=== PATIENT | male | born 1960 | race African-American/Black ===

== ENCOUNTER → 2018-02-03 20:07 | Outpatient (CLI) | payer OTHER, SELFPAY | PROVIDERS: Visit Provider Nurse Practitioner Family | DX: G47.33 Obstructive sleep apnea (adult) (pediatric) (principal); R06.83 Snoring | CPT/HCPCS: 95811 ==

== ENCOUNTER 2021-03-27 09:15 | Emergency (ER) | payer OTHER, SELFPAY ==
[2021-03-27 10:05] VITALS: BP 180/100; PULSE 76; RESP 18; TEMP 36.7; O2SAT 98; BMI 40.4
--- NOTE | 2021-03-27 10:49 | HMH.EDUTC ---
[facility] [place] [facility] Disposition Clinical Impression: Exposure to COVID-19 virus Disposition: Home, Self-Care Condition on Discharge: Good Instructions: DI for COVID-19 (Suspected or Confirmed ), Preventing the Spread of Coronavirus Discharge Instructions Additional Instructions: *Monitor Temp, Over the counter Motrin or Tylenol as directed/as needed Tylenol every 4 hours and Motrin every 6 hours (as long as your family doctor has told you that you can take it) for fever or pain. and straight to ER if unable to lower temp less than 101.0 after medication given Follow up IMMEDIATELY for new or worsening symptoms or no Noticeable improvement over the next 48-72 hours. 911 for difficulty breathing or swallowing You were tested for today for COVID19 your test result should be back in the next 24-48 hours, you may call to the [facility] to see if your test results are back in the next 48 hours [phone] [facility] hours are 9am-9pm You was given a handout with instructions for Self Quarantine and Self isolation for while you wait on test results and what to do if they are positive If you are positive the Health Dept will be contacting you also Make sure to take your Vitamins Vit. C Vit D and Zinc if you can take them Referrals: Provider,Referral, MD [Primary Care Provider] - As needed Time of Disposition: 10:53 Medical Decision Making - Ang Inquiry Pt receiving controlled substance: No Ang was queried for this patient: No Vital Signs: 03/27/21 10:05 Temperature 98.0 F Temperature Source Oral Pulse Rate [Right Brachial] 76 Respiratory Rate 18 Blood Pressure [Right Arm] 180/100 H Blood Pressure Mean [Right Arm] 126 Blood Pressure Source [Right Arm] Automatic Cuff Blood Pressure Position [Right Arm] Sitting 02 Sat by Pulse Oximetry 98 Oxygen Delivery Method Room Air Orders (Tests/Meds): ORDERS Category Date Time Status Covid-19 Nasal PCR ([facility]) Routine Lab 03/27/21 10:51 Ordered [facility] [place] [facility] HPI - General Stated complaint: covid test, exposure Time Seen by Provider: 03/27/21 10:49 Mode of Arrival: Ambulatory Source of Information: Patient Limitations: No Limitations Description of Symptoms (Recalled from Triage Doc. by RN): COVID TEST D/T EXPOSURE. DENIES SYMPTOMS HEENT Symptoms (Recalled from RN notes): No Resp Symptoms (Recalled from RN notes): No Skin Symptoms (Recalled from RN notes): No MS Symptoms (Recalled from RN notes): No Functional Status (Recalled from RN notes): WNL - History of Present Illness Provider Complaint: Patient state that the whole house has been dx with COVID state that he is not having any symptoms but wanted to get tested due to exposure - Related Data Home Medications Medication Instructions Recorded Confirmed amlodipine 5 mg tablet PO 90 Days #90 01/27/18 aspirin 81 mg tablet,delayed 81 mg PO ONCE 01/27/18 release atorvastatin 80 mg tablet PO 90 Days #90 01/27/18 metformin 500 mg tablet PO 20 Days #20 01/27/18 metoprolol tartrate 100 mg tablet PO 90 Days #90 01/27/18 omeprazole 20 mg capsule,delayed PO 90 Days #90 01/27/18 release potassium chloride 10 mEq PO 90 Days #90 01/27/18 tablet,extended release sertraline 100 mg tablet PO 90 Days #45 01/27/18 tramadol 50 mg tablet PO 30 Days #180 01/27/18 Allergies Allergy/AdvReac Type Severity Reaction Status Date / Time No Known Allergies Allergy Verified 03/27/21 10:44 - Worker's Comp Is this a Worker's Comp case?: No [facility] History - Hepatitis A Screen Drug use history?: No High risk sexual behaviors?: No History of sexually transmitted infection?: No Currently employed?: No Childcare worker?: No Do you have indoor plumbing?: Yes Do you have electricity?: Yes Attestation statement:: This patient has been screened for Hepatitis A risk factors. I have reviewed the patient's past medical history: Yes Medical History: Reports:: Depression, Diabetes Mellitus Type 2, Gastroesophageal Reflux Disease(GERD),
[2021-03-27 10:56] VITALS: BP 180/100; PULSE 76; RESP 18; TEMP 36.7; O2SAT 98
--- NOTE | 2021-03-28 10:25 | PC.NURSE ---
informed patient that he was positive
== END 2021-03-27 10:59 | disposition home or self-care (01) ==
PROVIDERS: Emergency Provider Nurse Practitioner
DX: U07.1 COVID-19 (principal)
CPT/HCPCS: 99202; G0463; U0003

== ENCOUNTER 2023-12-25 12:39 | Inpatient (IN) | payer MEDICARE, OTHER, SELFPAY ==
[2023-12-25] VITALS (9 sets, daily range): BP systolic 117–148; BP diastolic 61–88; PULSE 70–83; RESP 15–24; TEMP 36.4–37.3; O2SAT 93–100; BMI 31.2
--- NOTE | 2023-12-25 12:39 | ECG_ITS ---
APPROVED REPORT Exam: Resting ECG HR:69 bpm ECG Measurements Heart Rate 69 AXES MA 198 P 44 QRSd 98 QRS -42 QT 430 T -2 QTc 449 Conclusion SINUS RHYTHM WITH SINUS ARRHTHYMIA LEFT AXIS DEVIATION [QRS AXIS < -30] SEPTAL MYOCARDIAL INFARCTION , PROBABLY OLD [40+ ms Q WAVE IN V1/V2] ABNORMAL ECG UNCONFIRMED REPORT Electronically signed by : NAYLA ELLIOTT, 12/25/2023 15:44:04
--- NOTE | 2023-12-25 12:48 | XR_ITS ---
PROCEDURE INFORMATION: Exam: XR Chest Exam date and time: 12/25/2023 12:51 PM Age: 63 years old Clinical indication: Pain; Chest pressure; Additional info: Chest pain TECHNIQUE: Imaging protocol: Radiologic exam of the chest. Views: 1 view. COMPARISON: No relevant prior studies available. FINDINGS: Lungs: No evidence of acute airspace infiltrate. No pulmonary edema. Pleural spaces: No significant pleural effusion. No pneumothorax. Heart/Mediastinum: Cardiomediastinal silouhette is within normal limits. Bones/joints: No evidence of acute osseous abnormality. IMPRESSION: No acute findings.
--- NOTE | 2023-12-25 12:48 | PC.NURSE ---
in Room talking with patient at this time.
--- NOTE | 2023-12-25 12:53 | CT_ITS ---
PROCEDURE INFORMATION: Exam: CT Abdomen And Pelvis With Contrast Exam date and time: 12/25/2023 2:22 PM Age: 63 years old Clinical indication: Abdominal pain; Additional info: Abd pain TECHNIQUE: Imaging protocol: Computed tomography of the abdomen and pelvis with contrast. Radiation optimization: All CT scans at this facility use at least one of these dose optimization techniques: automated exposure control; mA and/or kV adjustment per patient size (includes targeted exams where dose is matched to clinical indication); or iterative reconstruction. Contrast material: ISOVUE; Contrast volume: 75 ml; Contrast route: IV; COMPARISON: CR XR CHEST PORTABLE 12/25/2023 12:51 PM FINDINGS: Liver: Fatty liver. Concentrated focal fatty deposition incidentally noted along the gallbladder fossa. No suspicious liver lesions. Gallbladder and bile ducts: Status post cholecystectomy. Pancreas: Peripancreatic fat stranding consistent with acute pancreatitis centered in pancreatic neck and body and surrounding a focal 2.5 cm lobulated area of parenchymal hypoenhancement. No peripancreatic fluid collection. Spleen: Unremarkable. Adrenal glands: Unremarkable. Kidneys and ureters: Bilateral simple renal cysts, some of which are too small to characterize but also most likely benign. No renal or ureteral stones. No hydronephrosis. Stomach and bowel: Unremarkable. Appendix: No evidence of appendicitis. Intraperitoneal space: No free fluid. No pneumoperitoneum. Vasculature: Moderate amount of calcific arterial atherosclerosis throughout the aorta. No abdominal aortic aneurysm. Lymph nodes: Unremarkable. Urinary bladder: Unremarkable. Reproductive: Prostate is enlarged, measuring approximately 5.0 cm in transverse axis. Bones/joints: Multi-level bridging or beaked disc osteophytes in the lower thoracic spine compatible with diffuse idiopathic skeletal hyperostosis (DISH). No evidence of acute osseous abnormality. Soft tissues: Small fat containing umbilical hernia without evidence of acute inflammation. Trace subcutaneous emphysema in the superficial soft tissues overlying the right inguinal canal, of unclear clinical significance. No evidence of focal fluid collection or interstitial gas. IMPRESSION: 1. Acute pancreatitis with focal area of parenchymal hypoenhancement concerning for necrotizing pancreatitis. 2. Fatty liver. 3. Enlarged prostate. 4. Diffuse idiopathic skeletal hyperostosis (DISH). 5. Additional ancillary findings are detailed above. COMMENTS: Consistent with the [employer]'s Incidental Findings Committee white paper (J [employer] Gerhard [employer]iol 2018): Any incidental renal lesion less than 1 cm or classified as too small to characterize, or any incidental cystic renal lesion characterized as simple-appearing, is likely benign. No follow-up imaging is recommended for these lesions per consensus recommendations based on imaging criteria.
[2023-12-25 12:58] LABS: Basophils # 0.1 K/mm3 (0-0.2); Basophils % 0.7 % (0.1-2.0); Eosinophils # 0.2 K/mm3 (0.0-0.4); Eosinophils % 1.1 % (0.1-12.0); Hematocrit 46.8 % (42.0-52.0); Hemoglobin 14.9 g/dL (14.1-18.0); Lymphocytes # 1.9 K/mm3 (0.7-4.5); Lymphocytes % 12.7 % (10-50); Mean Corpuscular HGB Conc 31.8 g/dL (31.8-35.4); Mean Corpuscular Hemoglobin 27.6 pg (27.0-31.2); Mean Platelet Volume 7.1 fl (7.4-10.4); Monocytes # 0.5 K/mm3 (0.1-1.0); Monocytes % 3.2 % (1.7-9.3); Neutrophils % 82.3 % (37.0-80.0); Platelet Count 556 K/mm3 (142-424); Red Blood Count 5.38 M/mm3 (4.60-6.20); Red Cell Distribution Width 14.2 % (11.5-17.5); White Blood Count 14.6 K/mm3 (4.8-10.8)
[2023-12-25] MEDS: MORPHINE 4MG/ML SYRINGE 4 MG IV (13:03)
[2023-12-25] MEDS: ONDANSETRON 4MG/2ML VIAL 4 MG IV (13:03)
[2023-12-25 13:15] LABS: Alanine Aminotransferase 63 U/L (12-78); Albumin/Globulin Ratio 1.3 (1.1-1.8); Alkaline Phosphatase 96 U/L (38-126); Anion Gap 13.8 mEq/L (5-15); Aspartate Amino Transferase 74 U/L (17-59); Bilirubin,Total 0.7 mg/dl (0.2-1.3); Blood Urea Nitrogen 13 mg/dl (9-20); Calcium 9.7 mg/dl (8.4-10.2); Carbon Dioxide 29 mmol/L (22.0-30.0); Chloride 91 mmol/L (98-107); Creatinine Clearance Estimated 107 mL/min (50-200); Estimated Glomerular Filt Rate 85 ml/min (>60); GFR (African American) 103 ML/MIN (>60); Globulin 3.1 g/dL (1.3-3.2); Glucose 193 mg/dl (74-100); Lipase 517 U/L (23-300); Potassium 3.8 mmoL/L (3.5-5.1); Sodium 130 mmol/L (136-145); Total Protein,Serum 7.1 g/dl (6.3-8.2)
[2023-12-25 13:33] LABS: Lactic Acid 1.8 mmol/L (0.7-2.1)
[2023-12-25 13:52] LABS: Troponin I < 0.01 ng/ml (0.00-0.034)
--- NOTE | 2023-12-25 13:58 | HMH.EDGENADL ---
Discharge Plan Disposition Patient Disposition: Admitted Condition: Fair Chief Complaint: Chest Pain Prescriptions Prescriptions: No Action tramadol 50 mg tablet PO 30 Days Qty: 180 amlodipine 5 mg tablet PO 90 Days Qty: 90 atorvastatin 80 mg tablet PO 90 Days Qty: 90 metformin 500 mg tablet PO 20 Days Qty: 20 sertraline 100 mg tablet PO 90 Days Qty: 45 omeprazole 20 mg capsule,delayed release(DR/EC) PO 90 Days Qty: 90 metoprolol tartrate 100 mg tablet PO 90 Days Qty: 90 potassium chloride 10 mEq tablet extended release PO 90 Days Qty: 90 aspirin [Adult Low Dose Aspirin] 81 mg tablet,delayed release (DR/EC) 81 mg PO ONCE Referrals Follow up/Referrals: Provider,Referral, MD [Primary Care Provider] - See instructions Clinical Impressions Clinical Impression: Acute pancreatitis, Hyponatremia Discharge ED Provider: Amador Soni Adult HPI General Chief complaint: Chest Pain Stated complaint: chest pain Time Seen by Provider: 12/25/23 12:46 Mode of Arrival: Wheelchair Source of Information: Patient, Spouse and Medical Record Limitations: No Limitations Description of Symptoms (Recalled from ER Triage Doc. by RN): c/o center chest pain that started this am, vomiting, diarrhea and stomach pain for approx 3 weeks. reports that he started ozempic 3 weeks ago and he has had stomach issues since, [facility] for [facility] and then restarted it a few weeks ago which he didnt take the shot this am. History of Present Illness HPI narrative: 63-year-old male with past medical history significant for hypertension, HLD, DM 2, depression, GERD, sciatica, presents today for evaluation concerning L chest pain onset this morning. Pain is not radiating. Chest pain is pressure-like. He also reports abdominal pain as well as nausea. He does state that he started Ozempic 4 months ago and has GI upset at times however this pain today is different. Denies having any fevers or chills. Has not had any shortness of breath, dysuria or hematuria. No other complaints. Related Data Home Medications Medication Instructions Recorded Confirmed amlodipine 5 mg tablet PO 90 days ##90 01/27/18 aspirin 81 mg tablet,delayed 81 mg PO ONCE 01/27/18 release (Adult Low Dose Aspirin) atorvastatin 80 mg tablet PO 90 days ##90 18 metformin 500 mg tablet PO 20 days ##20 01/27/18 metoprolol tartrate 100 mg tablet PO 90 days ##90 01/27/18 omeprazole 20 mg capsule,delayed PO 90 days ##90 01/27/18 release potassium chloride 10 mEq PO 90 days ##90 01/27/18 tablet,extended release sertraline 100 mg tablet PO 90 days ##45 01/27/18 tramadol 50 mg tablet PO 30 days ##180 01/27/18 Allergies Allergy/AdvReac Type Severity Reaction Status Date / Time No Known Allergies Allergy Verified 03/27/21 10:44 [facility] Disclaimer: The information contained in this section may have been updated after the patient was seen, as this information can be updated by other users. Social History Smoking Status: Current every day smoker tobacco type: cigarettes packs per day: 1 alcohol intake: never counseling provided: none substance use type: denies use current occupational status: other Travel in the last 8 weeks: None ROS Obtained: Yes All systems reviewed & no additional complaints except as documented Physical Exam General General appearance: alert and in no apparent distress Head Head exam: atraumatic and normocephalic Eye Eye exam: Present normal appearance, PERRL and EOMI ENT ENT exam: Present normal oropharynx and mucous membranes moist Neck Neck exam: Present full ROM; Absent meningismus Chest Chest inspection: Present tenderness (Reproducible tenderness palpation) Respiratory Respiratory exam: Absent respiratory distress, wheezes, stridor or accessory muscle use Cardiovascular Cardiovascular exam: Present normal rhythm Abdominal Exam Abdominal exam: Present soft and tenderness (Tenderness to palpation in the upper abdomen without rebound or guarding); Absent distention, guarding, rebound or rigidity Neurological Exam Neurological exam: Present alert, oriented X3 and CN II-XII intact; Absent motor sensory deficit Psychiatric Psychiatric exam: Present normal affect and normal mood Skin Skin exam: Present warm and dry Medical Decision Making Medical Records Medical records reviewed: Yes I reviewed the patient's medical records. Ang Inquiry Pt receiving controlled substance: No Ang was queried for this patient: No Vital Signs: 12/25/23 12:40 12/25/23 12:43 12/25/23 13:00 Temperature 97.6 F Temperature Source Oral Pulse Rate 72 Pulse Rate [Left Radial] 70 Respiratory Rate 21 15 19 Blood Pressure 121/76 132/81 Blood Pressure [Right Arm] 121/76 Blood Pressure Mean [Right Arm] 91 Blood Pressure Source [Right Arm] Automatic Cuff Blood Pressure Position [Right Arm] Sitting 02 Sat by Pulse Oximetry 100 99 Oxygen Delivery Method Room Air 12/25/23 13:30 12/25/23 14:00 12/25/23 15:00 Temperature Temperature Source Pulse Rate 72 75 77 Pulse Rate [Left Radial] Respiratory Rate 22 22 24 Blood Pressure 119/76 121/78 140/80 Blood Pressure [Right Arm] Blood Pressure Mean [Right Arm] Blood Pressure Source [Right Arm] Blood Pressure Position [Right Arm] 02 Sat by Pulse Oximetry 96 97 96 Oxygen Delivery Method Room Air Room Air Lab Data Lab Results 12/25/23 12:45: WBC 14.6 H, RBC 5.38, Hgb 14.9, Hct 46.8, MCV 87.0, MCH 27.6, MCHC 31.8, RDW 14.2, Plt Count 556 H, MPV 7.1 L, Neut % (Auto) 82.3 H, Lymph % (Auto) 12.7, [place] % (Auto) 3.2, Eos % (Auto) 1.1, Baso % (Auto) 0.7, Neut # (Auto) 12.0 H, Lymph # (Auto) 1.9, [place] # (Auto) 0.5, Eos # (Auto) 0.2, Baso # (Auto) 0.1, Sodium 130 L, Potassium 3.8, Chloride 91 L, Carbon Dioxide 29, Anion Gap 13.8, BUN 13, Creatinine 0.90, Estimated Creat Clear 107, Estimated GFR 85, Est GFR ( Amer) 103, Glucose 193 H, Calcium 9.7, Total Bilirubin 0.7, AST 74 H, ALT 63, Alkaline Phosphatase 96, Troponin I < 0.01, Total Protein 7.1, Albumin 4.0, Globulin 3.1, Albumin/Globulin Ratio 1.3, Lipase 517 H 12/25/23 13:20: Lactate 1.8 12/25/23 12:45 12/25/23 12:45 Orders (Tests/Meds): ED MEDICATIONS Generic Name Dose Route Start Last Admin Trade Name Freq PRN Reason Stop Dose Admin Sodium Chloride 10 ml 12/25/23 12:48 Sodium Chloride 0.9% 10ml Flush Syringe IV 01/24/24 12:47 NEEDED PRN Maintain IV Site Sodium Chloride 10 ml 12/25/23 14:33 12/25/23 14:34 Sodium Chloride 0.9% 10ml Syr (Rad Only) IV 01/24/24 14:32 10 ml NEEDED PRN Administration Maintain IV Site Discontinued Medications Generic Name Dose Route Start Last Admin Trade Name Gerald PRN Reason Stop Dose Admin Iopamidol 75 ml 12/25/23 14:33 12/25/23 14:34 Iopamidol-370 (76%);100ml Bottle IV 12/25/23 14:34 75 ml ONCE ONE Administration Morphine Sulfate 4 mg 12/25/23 12:53 12/25/23 13:03 Morphine 4mg/Ml Syringe IV 12/25/23 12:54 4 mg ONCE ONE Administration Ondansetron HCl 4 mg 12/25/23 12:53 12/25/23 13:03 Ondansetron 4mg/2ml Vial IV 12/25/23 12:54 4 mg ONCE ONE Administration ORDERS Category Date Time Status CT abdomen pelvis w con Stat Cat Scan 12/25/23 12:53 Completed XR chest portable Stat Exams 12/25/23 12:48 Completed Complete Blood Count Auto Diff Stat Lab 12/25/23 12:45 Completed Comprehensive Metabolic Panel Stat Lab 12/25/23 12:45 Completed Lactic Acid Stat Lab 12/25/23 13:20 Completed Lipase Stat Lab 12/25/23 12:45 Completed Troponin I Q3H Lab 12/25/23 16:00 Ordered Troponin I Q3H Lab 12/25/23 19:00 Ordered Troponin I Stat Lab 12/25/23 12:45 Completed Medical Decision Narrative: 63-year-old male with past medical history significant for hypertension, HLD, DM 2, depression, GERD, sciatica, presents today for evaluation concerning L chest pain onset this morning. Pain is not radiating. Chest pain is pressure-like. He also reports abdominal pain as well as nausea. He does state that he started Ozempic 4 months ago and has GI upset at times however this pain today is different. On assessment he was hemodynamically stable and in no acute distress. Afebrile. His chest was clear to auscultation bilaterally. He did have reproducible tenderness on the left side of the chest. His abdomen was soft and nondistended however was tender in the upper quadrants. No rebound or guarding. Other physical exam findings unremarkable. Differential diagnoses include but limited to STEMI, NSTEMI, gastritis, gastroenteritis, pancreatitis, cholecystitis, cholelithiasis, among others. EKG was ordered and personally interpreted by me and shows sinus rhythm with sinus arrhythmia with a rate of 69 bpm. No ischemic changes. Patient was given morphine and Zofran for symptom control. His WBC today was 14.6. Platelet count elevated at 556. Sodium 130. Chloride 91. AST elevated at 74. Lipase elevated at 517. Initial troponin less than 0.01. Second troponin is pending. Chest x-ray did not show any acute cardiopulmonary disease processes on my informal interpretation. Radiology report confirmed. CT abdomen pelvis with findings concerning for acute pancreatitis with concerns for necrotizing pancreatitis. Patient is hemodynamically stable and in no acute distress on reassessment. His pain is is controlled. I discussed ED workup and results and current plan to admit for acute pancreatitis with concerns for necrotizing pancreatitis. Will order for 1 L of normal saline. Patient verbalized understanding and agreed with plan. I did consult with hospital medicine and discussed management and they have agreed to admit to their service. Critical Care Critical Care Time Critical Care Time: No
[2023-12-25] MEDS: SODIUM CHLORIDE 0.9% 10ML SYR (RAD ONLY) 10 ML IV (14:34)
[2023-12-25] MEDS: IOPAMIDOL-370 (76%);100ML BOTTLE 75 ML IV (14:34)
--- NOTE | 2023-12-25 15:38 | P.HP_ITS ---
History of Present Illness *Admission Date: 12/25/23 *Reason for visit:: abdominal and chest pain *History of present illness: Mr. Abraham is a 63-year-old male with history of diabetes, hypertension, depression, hyperlipidemia, GERD. Presented to the ER for evaluation of left chest pain worsening this morning and worsening left upper abdominal pain. Patient reported he had some vomiting this morning and has had some loose stools over the past week that are forming/firming up. Denies any fever. Stable on room air. Afebrile. Workup in the ER with labs and imaging. CT of abdomen showed stranding around pancreas consistent with pancreatitis. Lipase elevated above 500. Troponins negative with EKG nonactionable. Patient also noted to have leukocytosis, likely reactive. Made NPO and pain medicine initiated. Given pancreatitis, severity of pain, necrotizing component, and inability to tolerate p.o. intake, medicine was consulted for admission and further management. On evaluation, patient reports that he had taken Ozempic several months ago and stopped due to abdominal discomfort. Resumed at approximately 3 weeks ago with last dose received 1 week ago. Severity of pain began last night but has had pain off and on for a while. Chest pain began last night. No shortness of breath, confusion, syncope. [facility] Disclaimer: The information contained in this section may have been updated after the patient was seen, as this information can be updated by other users. Medical History (Updated 12/25/23 @ 18:42 by Gonzalez Bates MD) Cholecystitis HLD (hyperlipidemia) HTN (hypertension) Back pain Diabetes Surgical History H/O hernia repair Previous back surgery Family History Other Arthritis Family history of cancer Family history of diabetes mellitus type II Heart disease Social History Smoking Status: Current every day smoker tobacco type: cigarettes packs per day: 1 alcohol intake: never counseling provided: none substance use type: denies use current occupational status: other Travel in the last 8 weeks: None housing: house Review of Systems Review of Systems Review of systems (narrative): 14 point review of systems performed, pertinent positives and negatives as per HPI Meds Home Medications and Allergies Home Medications Medication Instructions Recorded Confirmed Type amlodipine 5 mg tablet 5 mg PO DAILY 90 days ##90 01/27/18 12/25/23 History atorvastatin 80 mg tablet 80 mg PO DAILY 90 days ##90 01/27/18 12/25/23 History metoprolol tartrate 100 mg tablet 100 mg PO DAILY 90 days ##90 01/27/18 12/25/23 History omeprazole 20 mg capsule,delayed 20 mg PO BID 90 days ##90 01/27/18 12/25/23 History release sertraline 100 mg tablet 100 mg PO DAILY 90 days ##45 01/27/18 12/25/23 History tramadol 50 mg tablet 25 mg PO TID 30 days ##180 01/27/18 12/25/23 History New Prescriptions to Start Prescriptions: Allergies Allergy/AdvReac Type Severity Reaction Status Date / Time No Known Allergies Allergy Verified 03/27/21 10:44 Exam Data for Last 24 hours Vital signs and Labs for Last 24 Hours: Temp Pulse Resp BP Pulse Ox O2 Del Method 97.6 F 77 24 140/80 96 Room Air 12/25/23 12:40 12/25/23 15:00 12/25/23 15:00 12/25/23 15:00 12/25/23 15:00 12/25/23 15:00 Laboratory Results - last 24 hr 12/25/23 12:45: WBC 14.6 H, RBC 5.38, Hgb 14.9, Hct 46.8, MCV 87.0, MCH 27.6, MCHC 31.8, RDW 14.2, Plt Count 556 H, MPV 7.1 L, Neut % (Auto) 82.3 H, Lymph % (Auto) 12.7, [place] % (Auto) 3.2, Eos % (Auto) 1.1, Baso % (Auto) 0.7, Neut # (Auto) 12.0 H, Lymph # (Auto) 1.9, [place] # (Auto) 0.5, Eos # (Auto) 0.2, Baso # (Auto) 0.1, Sodium 130 L, Potassium 3.8, Chloride 91 L, Carbon Dioxide 29, Anion Gap 13.8, BUN 13, Creatinine 0.90, Estimated Creat Clear 107, Estimated GFR 85, Est GFR ( Amer) 103, Glucose 193 H, Calcium 9.7, Total Bilirubin 0.7, AST 74 H, ALT 63, Alkaline Phosphatase 96, Troponin I < 0.01, Total Protein 7.1, Albumin 4.0, Globulin 3.1, Albumin/Globulin Ratio 1.3, Lipase 517 H 12/25/23 13:20: Lactate 1.8 I & O for Last 24 hours: Intake & Output 12/22/23 12/23/23 12/24/23 12/25/23 23:59 23:59 23:59 23:59 Weight 101.605 kg Constitutional Constitutional: no acute distress and obese *Routine HEENT Exam Head: Present normocephalic Eye: Present EOMI and PERRL ENT: Present mucous membranes moist *Routine Neck Exam Neck: Present supple; Absent lymphadenopathy *Routine Respiratory Exam Respiratory: Present CTA bilaterally; Absent rhonchi, wheezes or crackles *Routine Cardiovascular Exam Cardiovascular: Present RRR *Routine Abdominal Exam Abdominal: Present soft, normoactive bowel sounds and tenderness (Diffuse, worse in the left upper quadrant. Guarding. No distention or rebound) *Routine Rectal Exam Rectal:: deferred *Routine Genitalia Exam Genitalia:: deferred *Routine Extremities Exam Extremities: Absent cyanosis, clubbing or edema *Routine Skin Exam Skin: Present warm; Absent rash *Routine Neurological Exam Neurological: Present alert, oriented X3 and moving all extremities; Absent altered mental status Assessment and Plan *Assessment and plan (1) Acute pancreatitis: Status: Acute Qualifiers: Acute pancreatitis complication: uninfected necrosis Category: Medical Code(s): K85.90 - Acute pancreatitis without necrosis or infection, unspecified (2) Hyponatremia: Status: Acute Category: Medical Code(s): E87.1 - Hypo-osmolality and hyponatremia (3) Diabetes: Status: Chronic Category: Medical Code(s): E11.9 - Type 2 diabetes mellitus without complications (4) HTN (hypertension): Status: Acute Category: Medical Code(s): I10 - Essential (primary) hypertension (5) HLD (hyperlipidemia): Status: Acute Category: Medical Code(s): E78.5 - Hyperlipidemia, unspecified (6) 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 Morales is a 63-year-old male with history of diabetes, hypertension, hyperlipidemia. Presented with abdominal pain and chest pain. Workup in the ER concerning for pancreatitis. Discussed case with ER physician, request admission for pain control, IV fluids, medical management of his pancreatitis. Medicine agreed to admit for further management. Stable on room air. Having intermittent pain. Personally reviewed CT of abdomen showing stranding around pancreas consistent with pancreatitis. Lipase elevated at 517. Necessitating inpatient management. Problems addressed as follows: Necrotizing pancreatitis -Lipase 517, LDH 373, triglycerides 100. Patient had recently resumed taking Ozempic. Does not have a gallbladder, has not had alcohol in over 30 years. Concern for medication induced pancreatitis secondary to Ozempic/GLP-1. -Bart score on admission of 2. Will repeat labs in 48 hours for mortality risk. Severe pancreatitis unlikely given LDH and age is his only 2 scoring factors. -Slow advancement of diet. Continue LR at 100 cc an hour. Will consider advancing diet tomorrow. Currently NPO. -Dilaudid 1 mg IV every 4 hours as needed for pain. Monitor for toxicity -Repeat CBC, CMP, magnesium ordered for the morning. White cell count of 14.6, likely reactive in the setting of pancreatitis. Type 2 diabetes: -Sliding scale insulin fingersticks ACHS. -Will need to discontinue Ozempic/GLP-1's moving forward. There are contraindicated at this time given his pancreatitis -Will resume oral diabetes meds once tolerating oral intake Hyponatremia: -Sodium 130, likely due to dehydration from poor p.o. intake. Repeat sodium level in the morning. Monitor for improvement with fluid resuscitation -Kidney function normal with BUN 13, creatinine 0.9 Hypertension and hyperlipidemia, holding home meds given normotensive state Full code Lovenox 40 mg subcu daily N.p.o.
[2023-12-25 15:53] LABS: Chol/HDL Ratio 3.3 (1-3.5); Cholesterol 109 mg/dl (140-200); HDL Cholesterol 33 mg/dl (40-60); Lactate Dehydrogenase 373 U/L (313-618); Triglycerides 103 mg/dl (30-150); VLDL Cholesterol 21 mg/dL (0-40)
--- NOTE | 2023-12-25 16:18 | PC.NURSE ---
Report called to Claire SAUNDERS
--- NOTE | 2023-12-25 16:18 | PC.NURSE ---
report received from ER at this time
[2023-12-25] MEDS: LACTATED RINGERS 1000ML 1,000 ML 75 ML IV (17:12)
[2023-12-25 17:17] LABS: Troponin I < 0.01 ng/ml (0.00-0.034)
[2023-12-25 17:24] LABS: POC Glucose,Bedside 140 (70-110)
[2023-12-25] MEDS: HYDROMORPHONE 2MG/ML SYRINGE 1 MG IV (19:03)
[2023-12-25 19:28] LABS: Troponin I < 0.01 ng/ml (0.00-0.034)
[2023-12-26] MEDS: HYDROMORPHONE 2MG/ML SYRINGE 1 MG IV ×5 (03:54→21:39)
[2023-12-26 04:00] VITALS: BP 122/67; PULSE 87; RESP 18; TEMP 36.9; O2SAT 96; BMI 30.8
[2023-12-26 04:04] LABS: POC Glucose,Bedside 139 (70-110)
--- NOTE | 2023-12-26 05:34 | PC.NURSE ---
Pt is alert and oriented. Complained of pain one time this shift, treated per mar. Pt ambulates to the restroom with standby assist. Abdomen is soft and tender. Bowel sounds active. has remained at bedside. Call light in reach.
[2023-12-26] MEDS: LACTATED RINGERS 1000ML 1,000 ML 75 ML IV (06:44)
[2023-12-26 07:44] LABS: Basophils # 0.1 K/mm3 (0-0.2); Basophils % 0.4 % (0.1-2.0); Eosinophils % 0.1 % (0.1-12.0); Hematocrit 45.9 % (42.0-52.0); Hemoglobin 14.6 g/dL (14.1-18.0); Lymphocytes # 2.3 K/mm3 (0.7-4.5); Lymphocytes % 14.5 % (10-50); Mean Corpuscular HGB Conc 31.7 g/dL (31.8-35.4); Mean Corpuscular Volume 88.3 fl (80-94); Mean Platelet Volume 7.6 fl (7.4-10.4); Monocytes # 0.8 K/mm3 (0.1-1.0); Neutrophils # 12.9 K/mm3 (1.8-7.8); Neutrophils % 80.1 % (37.0-80.0); Platelet Count 483 K/mm3 (142-424); Red Cell Distribution Width 14.2 % (11.5-17.5); White Blood Count 16.1 K/mm3 (4.8-10.8)
[2023-12-26 07:45] LABS: Chloride 94 mmol/L (98-107); Potassium 3.9 mmoL/L (3.5-5.1); Sodium 129 mmol/L (136-145)
[2023-12-26 07:47] LABS: MANUAL DIFFERENTIAL MANUAL DIFFERENTIAL (MANUAL DIFF)
[2023-12-26 07:48] LABS: Alanine Aminotransferase 51 U/L (12-78); Albumin Level 3.7 g/dl (3.5-5.0); Albumin/Globulin Ratio 1.3 (1.1-1.8); Alkaline Phosphatase 99 U/L (38-126); Anion Gap 12.9 mEq/L (5-15); Aspartate Amino Transferase 60 U/L (17-59); Bilirubin,Total 0.4 mg/dl (0.2-1.3); Blood Urea Nitrogen 11 mg/dl (9-20); Calcium 9.4 mg/dl (8.4-10.2); Carbon Dioxide 26 mmol/L (22.0-30.0); Creatinine Clearance Estimated 105 mL/min (50-200); Estimated Glomerular Filt Rate 136 ml/min (>60); GFR (African American) 164 ML/MIN (>60); Globulin 2.8 g/dL (1.3-3.2); Glucose 125 mg/dl (74-100); Magnesium 1.5 mg/dl (1.6-2.3); Total Protein,Serum 6.5 g/dl (6.3-8.2)
[2023-12-26 08:00] VITALS: BP 105/76; PULSE 87; RESP 18; TEMP 37.1; O2SAT 96
--- NOTE | 2023-12-26 08:01 | P.PN_ITS ---
Subjective *Date: 12/26/23 *Time: 11:29 Interval history: Pain response to medication. No nausea or vomiting overnight. States he is feeling little bit better this morning. Denies any shortness of breath or chest pain. Abdomen lead mason tender on exam. Would like to try some p.o. intake. Medical Exam Vital signs and Labs for Last 24 Hours: Vital Signs Temp Pulse Pulse Resp BP BP Pulse Ox 12/26/23 06:50 12/26/23 05:00 12/26/23 04:00 98.4 F 87 18 122/67 96 12/26/23 03:00 12/26/23 01:00 12/25/23 23:00 12/25/23 21:00 12/25/23 20:00 12/25/23 19:41 99.1 F 83 18 117/69 94 L 12/25/23 18:31 12/25/23 17:45 12/25/23 17:27 12/25/23 16:00 97.6 F 75 18 121/61 93 L 12/25/23 16:00 97.9 F 77 22 148/88 H 12/25/23 16:00 77 22 148/88 H 97 12/25/23 15:30 77 19 131/77 98 12/25/23 15:00 77 24 140/80 96 12/25/23 14:00 75 22 121/78 97 12/25/23 13:30 72 22 119/76 96 12/25/23 13:00 72 19 132/81 99 12/25/23 12:43 15 121/76 12/25/23 12:40 97.6 F 70 21 121/76 100 O2 Del Method 12/26/23 06:50 Room Air 12/26/23 05:00 Room Air 12/26/23 04:00 Room Air 12/26/23 03:00 Room Air 12/26/23 01:00 Room Air 12/25/23 23:00 Room Air 12/25/23 21:00 Room Air 12/25/23 20:00 Room Air 12/25/23 19:41 Room Air 12/25/23 18:31 Room Air 12/25/23 17:45 Room Air 12/25/23 17:27 Room Air 12/25/23 16:00 Room Air 12/25/23 16:00 12/25/23 16:00 12/25/23 15:30 Room Air 12/25/23 15:00 Room Air 12/25/23 14:00 Room Air 12/25/23 13:30 12/25/23 13:00 12/25/23 12:43 12/25/23 12:40 Room Air Intake and Output 12/25/23 12/26/23 12/26/23 23:59 07:59 15:59 Intake Total 991 / 991 Output Total 0 / 0 0 / 0 Balance 0 / 0 991 / 991 Intake: Intake, Total IV Amount 991 / 991 Lactated Ringers 1000ML 1,000 991 / 991 ml @ 75 mls/hr IV .[id number] [facility] Rx#:[id number] Output: Output, Urine Amount 0 / 0 0 / 0 Other: Number of Unmeasured Voids 1 1 Weight 99.79 kg Patient Weight 12/26/23 23:59 Weight 99.79 kg Laboratory Results - last 24 hr 12/25/23 12:45: WBC 14.6 H, RBC 5.38, Hgb 14.9, Hct 46.8, MCV 87.0, MCH 27.6, MCHC 31.8, RDW 14.2, Plt Count 556 H, MPV 7.1 L, Neut % (Auto) 82.3 H, Lymph % (Auto) 12.7, [place] % (Auto) 3.2, Eos % (Auto) 1.1, Baso % (Auto) 0.7, Neut # (Auto) 12.0 H, Lymph # (Auto) 1.9, [place] # (Auto) 0.5, Eos # (Auto) 0.2, Baso # (Auto) 0.1, Sodium 130 L, Potassium 3.8, Chloride 91 L, Carbon Dioxide 29, Anion Gap 13.8, BUN 13, Creatinine 0.90, Estimated Creat Clear 107, Estimated GFR 85, Est GFR ( Amer) 103, Glucose 193 H, Hemoglobin A1c 8.0 H, Calcium 9.7, Total Bilirubin 0.7, AST 74 H, ALT 63, Alkaline Phosphatase 96, Lactate Dehydrogenase 373, Troponin I < 0.01, Total Protein 7.1, Albumin 4.0, Globulin 3.1, Albumin/Globulin Ratio 1.3, Triglycerides 103, Cholesterol 109 L, LDL Cholesterol Direct 59.00 L, VLDL Cholesterol 21, HDL Cholesterol 33 L, Cholesterol/HDL Ratio 3.3, Lipase 517 H 12/25/23 13:20: Lactate 1.8 12/25/23 16:30: Troponin I < 0.01 12/25/23 17:16: POC Glucose 140 H 12/25/23 19:00: Troponin I < 0.01 12/26/23 03:55: POC Glucose 139 H 12/26/23 06:32: WBC 16.1 H, RBC 5.20, Hgb 14.6, Hct 45.9, MCV 88.3, MCH 28.0, MCHC 31.7 L, RDW 14.2, Plt Count 483 H, MPV 7.6, Neut % (Auto) 80.1 H, Lymph % (Auto) 14.5, [place] % (Auto) 5.0, Eos % (Auto) 0.1, Baso % (Auto) 0.4, Neut # (Auto) 12.9 H, Lymph # (Auto) 2.3, [place] # (Auto) 0.8, Eos # (Auto) 0.0, Baso # (Auto) 0.1, Sodium 129 L, Potassium 3.9, Chloride 94 L, Carbon Dioxide 26, Anion Gap 12.9, BUN 11, Creatinine 0.60 L D, Estimated Creat Clear 105, Estimated GFR 136, Est GFR ( Amer) 164 D, Glucose 125 H D, Calcium 9.4, Magnesium 1.5 L, Total Bilirubin 0.4, AST 60 H, ALT 51, Alkaline Phosphatase 99, Total Protein 6.5, Albumin 3.7, Globulin 2.8, Albumin/Globulin Ratio 1.3 I & O for Labs for Last 24 Hours: Intake & Output 12/23/23 12/24/23 12/25/23 12/26/23 23:59 23:59 23:59 23:59 Intake Total 991 / 991 Output Total 0 / 0 0 / 0 Balance 0 / 0 991 / 991 Weight 101.605 kg 99.79 kg Constitutional: Present no acute distress Head: Present atraumatic and normocephalic ENT: Present normal exam Respiratory: Present normal respiratory effort; Absent rhonchi, wheezes or crackles Cardiac: Present Reg Rate and Rhythm GI: Present soft, tenderness (Prominent left upper quadrant, no rebound) and normal bowel sounds; Absent distention Extremities: Present normal inspection and full ROM Skin: Present intact; Absent erythema Neuro: Present Grossly Intact, alert, awake, oriented x 3 and moves all extremities Assessment and Plan *Assessment and plan (1) Acute pancreatitis: Status: Acute Qualifiers: Acute pancreatitis complication: uninfected necrosis Category: Medical Code(s): K85.90 - Acute pancreatitis without necrosis or infection, unspecified (2) Hyponatremia: Status: Acute Category: Medical Code(s): E87.1 - Hypo-osmolality and hyponatremia (3) Diabetes: Status: Chronic Category: Medical Code(s): E11.9 - Type 2 diabetes mellitus without complications (4) HTN (hypertension): Status: Acute Category: Medical Code(s): I10 - Essential (primary) hypertension (5) HLD (hyperlipidemia): Status: Acute Category: Medical Code(s): E78.5 - Hyperlipidemia, unspecified (6) 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 Morales is a 63-year-old male with history of diabetes, hypertension, hyperlipidemia. Presented with abdominal pain and chest pain. Workup in the ER concerning for pancreatitis. Discussed case with ER physician, request admission for pain control, IV fluids, medical management of his pancreatitis. Medicine agreed to admit for further management. Stable on room air. Having intermittent pain. Personally reviewed CT of abdomen showing stranding around pancreas consistent with pancreatitis. Lipase elevated at 517. Necessitating inpatient management. Stable overnight. Tolerating pain regimen. Will advance diet today. Problems addressed as follows: Necrotizing pancreatitis -Lipase 517, LDH 373, triglycerides 100. Patient had recently resumed taking Ozempic. Does not have a gallbladder, has not had alcohol in over 30 years. Concern for medication induced pancreatitis secondary to Ozempic/GLP-1. -Bart score on admission of 2. Will repeat labs in 48 hours for mortality risk. Severe pancreatitis unlikely given LDH and age is his only 2 scoring factors. -Clear liquid diet today. Continue LR at 100 cc an hour. -Dilaudid 1 mg IV every 4 hours as needed for pain. Monitor for toxicity -Repeat CBC, CMP, magnesium ordered for the morning. White cell count still elevated at 16. Patient is afebrile. likely reactive in the setting of pancreatitis. Type 2 diabetes: -Sliding scale insulin fingersticks ACHS. -Will need to discontinue Ozempic/GLP-1's moving forward. There are contraindicated at this time given his pancreatitis -Will resume oral diabetes meds once tolerating oral intake Hyponatremia: -Sodium 129 on morning labs, chloride 94. Repeat sodium level in the morning. Monitor for improvement with fluid resuscitation -Kidney function normal with BUN 11, creatinine 0.6 Hypertension and hyperlipidemia, holding home meds given normotensive state Full code Lovenox 40 mg subcu daily Clear liquid
[2023-12-26] MEDS: MAGNESIUM SULFATE IN WATER 2 GM/50 ML PIGGYBACK IV (08:28)
[2023-12-26 08:39] LABS: POC Glucose,Bedside 143 (70-110)
[2023-12-26] MEDS: ENOXAPARIN 40MG/0.4ML SYRINGE 40 MG SQ (09:11)
[2023-12-26 12:15] LABS: Lymphocytes % 11 % (10-50); Monocytes % 6 % (2-9); Neutrophils % 80 % (42-76); Total Cells Counted 100
[2023-12-26 12:18] LABS: Platelet Estimate Slight Increase; RBC Morphology Normal
[2023-12-26 16:00] VITALS: BP 159/82; PULSE 95; RESP 19; TEMP 36.6; O2SAT 97
[2023-12-26 16:01] LABS: POC Glucose,Bedside 145 (70-110)
--- NOTE | 2023-12-26 17:17 | PC.NURSE ---
Pt has done well this shift. C/o pain x3 this shift and has been medicated per MAR for pain. Tolerating clear liquids well with no nausea. Ambulating in room w/o difficulty.
[2023-12-26 19:50] VITALS: O2SAT 96
[2023-12-26 20:08] VITALS: BP 147/74; PULSE 79; RESP 17; TEMP 36.9; O2SAT 96
[2023-12-26 21:41] LABS: POC Glucose,Bedside 142 (70-110)
[2023-12-27] MEDS: LACTATED RINGERS 1000ML 1,000 ML 75 ML IV (00:55)
[2023-12-27 03:33] LABS: POC Glucose,Bedside 111 (70-110)
[2023-12-27 04:00] VITALS: BP 131/71; PULSE 90; RESP 17; TEMP 36.9; O2SAT 96; BMI 30.8
--- NOTE | 2023-12-27 05:23 | PC.NURSE ---
Patient alert and oriented x4 through shift. Tolerating room air well. Complaints of abdominal pain once this shift and treated per SEP. Abdomen soft and tender with active bowel sounds on assessment. Ambulated to bathroom a few times this shift with no difficulty. Call light within reach and bed in lowest position.
--- NOTE | 2023-12-27 06:00 | US_ITS ---
FINAL REPORT CLINICAL HISTORY: eval CBD and pancreas COMPARISON: CT abdomen and pelvis dated 12/25/2023 FINDINGS: Sonographic images of the right upper quadrant were obtained. The pancreas is partially obscured. There is increased echogenicity in the liver consistent with fatty infiltration. The gallbladder appears normal without evidence of gallstones.There is no evidence of biliary ductal dilatation.The common duct measures 4mm. There is a probable stone or debris within the common bile duct. A small amount of ascites is present. Limited images of the right kidney are unremarkable. IMPRESSION: Probable stone or debris within the common bile duct. MRCP or ERCP is recommended for further evaluation. Reviewed, Interpreted and Dictated by Isaías Herbert III, MD Transcribed by Fany Newell Authenticated and [facility]
[2023-12-27] MEDS: HYDROMORPHONE 2MG/ML SYRINGE 1 MG IV (07:26)
[2023-12-27] MEDS: CALCIUM CARBONATE 500MG CHEWTAB 500 MG PO (07:37)
[2023-12-27 07:50] VITALS: BP 153/91; PULSE 94; RESP 16; TEMP 37.1; O2SAT 92
[2023-12-27 08:05] LABS: POC Glucose,Bedside 112 (70-110)
[2023-12-27 08:19] LABS: Basophils % 0.3 % (0.1-2.0); Eosinophils # 0.1 K/mm3 (0.0-0.4); Eosinophils % 0.8 % (0.1-12.0); Hematocrit 41.7 % (42.0-52.0); Hemoglobin 13.5 g/dL (14.1-18.0); Lymphocytes # 1.9 K/mm3 (0.7-4.5); Lymphocytes % 14.8 % (10-50); Mean Corpuscular HGB Conc 32.4 g/dL (31.8-35.4); Mean Corpuscular Hemoglobin 28.3 pg (27.0-31.2); Mean Corpuscular Volume 87.3 fl (80-94); Mean Platelet Volume 7.4 fl (7.4-10.4); Monocytes # 0.6 K/mm3 (0.1-1.0); Monocytes % 4.2 % (1.7-9.3); Neutrophils # 10.4 K/mm3 (1.8-7.8); Neutrophils % 79.8 % (37.0-80.0); Platelet Count 466 K/mm3 (142-424); Red Blood Count 4.77 M/mm3 (4.60-6.20); Red Cell Distribution Width 14.2 % (11.5-17.5)
[2023-12-27 08:27] LABS: Chloride 93 mmol/L (98-107)
[2023-12-27 08:28] LABS: Potassium 3.5 mmoL/L (3.5-5.1); Sodium 128 mmol/L (136-145)
[2023-12-27 08:30] LABS: Blood Urea Nitrogen 7 mg/dl (9-20); Creatinine Clearance Estimated 105 mL/min (50-200); Estimated Glomerular Filt Rate 136 ml/min (>60); GFR (African American) 164 ML/MIN (>60)
[2023-12-27 08:31] LABS: Alanine Aminotransferase 40 U/L (12-78); Albumin Level 3.3 g/dl (3.5-5.0); Albumin/Globulin Ratio 1.2 (1.1-1.8); Alkaline Phosphatase 95 U/L (38-126); Anion Gap 9.5 mEq/L (5-15); Aspartate Amino Transferase 45 U/L (17-59); Bilirubin,Total 0.6 mg/dl (0.2-1.3); Calcium 8.7 mg/dl (8.4-10.2); Carbon Dioxide 29 mmol/L (22.0-30.0); Globulin 2.7 g/dL (1.3-3.2); Glucose 116 mg/dl (74-100); Magnesium 1.7 mg/dl (1.6-2.3)
[2023-12-27] MEDS: ENOXAPARIN 40MG/0.4ML SYRINGE 40 MG SQ (09:28)
--- NOTE | 2023-12-27 10:31 | EXP.DC.SUM ---
General Admission date:: 12/25/23 Discharge date: 12/27/23 HPI HPI HPI: Mr. Abraham is a 63-year-old male with history of diabetes, hypertension, depression, hyperlipidemia, GERD. Presented to the ER for evaluation of left chest pain worsening this morning and worsening left upper abdominal pain. Patient reported he had some vomiting this morning and has had some loose stools over the past week that are forming/firming up. Denies any fever. Stable on room air. Afebrile. Workup in the ER with labs and imaging. CT of abdomen showed stranding around pancreas consistent with pancreatitis. Lipase elevated above 500. Troponins negative with EKG nonactionable. Patient also noted to have leukocytosis, likely reactive. Made NPO and pain medicine initiated. Given pancreatitis, severity of pain, necrotizing component, and inability to tolerate p.o. intake, medicine was consulted for admission and further management. On evaluation, patient reports that he had taken Ozempic several months ago and stopped due to abdominal discomfort. Resumed at approximately 3 weeks ago with last dose received 1 week ago. Severity of pain began last night but has had pain off and on for a while. Chest pain began last night. No shortness of breath, confusion, syncope. Exam Data for Last 24 hours Vital signs and Labs for Last 24 Hours: Temp Pulse Resp BP Pulse Ox O2 Del Method 98.8 F 94 H 16 153/91 H 92 L Room Air 12/27/23 07:50 12/27/23 07:50 12/27/23 07:50 12/27/23 07:50 12/27/23 07:50 12/27/23 09:00 Laboratory Results - last 24 hr 12/26/23 06:32: Total Counted 100, Neutrophils % (Manual) 80 H, Band Neutrophils % 3.0, Lymphocytes % (Manual) 11, Monocytes % (Manual) 6, Platelet Estimate Slight increase, RBC Morphology Normal 12/26/23 15:54: POC Glucose 145 H 12/26/23 21:33: POC Glucose 142 H 12/27/23 03:27: POC Glucose 111 H 12/27/23 07:58: POC Glucose 112 H 12/27/23 07:59: WBC 13.0 H, RBC 4.77, Hgb 13.5 L, Hct 41.7 L, MCV 87.3, MCH 28.3, MCHC 32.4, RDW 14.2, Plt Count 466 H, MPV 7.4, Neut % (Auto) 79.8, Lymph % (Auto) 14.8, [place] % (Auto) 4.2, Eos % (Auto) 0.8, Baso % (Auto) 0.3, Neut # (Auto) 10.4 H, Lymph # (Auto) 1.9, [place] # (Auto) 0.6, Eos # (Auto) 0.1, Baso # (Auto) 0.0, Sodium 128 L, Potassium 3.5, Chloride 93 L, Carbon Dioxide 29, Anion Gap 9.5, BUN 7 L D, Creatinine 0.60 L, Estimated Creat Clear 105, Estimated GFR 136, Est GFR ( Amer) 164, Glucose 116 H, Calcium 8.7, Magnesium 1.7 D, Total Bilirubin 0.6, AST 45, ALT 40, Alkaline Phosphatase 95, Total Protein 6.0 L, Albumin 3.3 L D, Globulin 2.7, Albumin/Globulin Ratio 1.2 I & O for Last 24 hours: Intake & Output 12/24/23 12/25/23 12/26/23 12/27/23 23:59 23:59 23:59 23:59 Intake Total 1531 / 1531 Output Total 0 / 0 0 / 0 Balance 0 / 0 1531 / 1531 Weight 101.605 kg 99.79 kg 99.79 kg Results Data Completed and Pending Labs on day of discharge: Labs from last 24 hours 12/27/23 12/27/23 12/27/23 07:59 07:58 03:27 WBC 13.0 H RBC 4.77 Hgb 13.5 L Hct 41.7 L MCV 87.3 MCH 28.3 MCHC 32.4 RDW 14.2 Plt Count 466 H MPV 7.4 Neut % (Auto) 79.8 Lymph % (Auto) 14.8 [place] % (Auto) 4.2 Eos % (Auto) 0.8 Baso % (Auto) 0.3 Neut # (Auto) 10.4 H Lymph # (Auto) 1.9 [place] # (Auto) 0.6 Eos # (Auto) 0.1 Baso # (Auto) 0.0 Total Counted Neutrophils % (Manual) Band Neutrophils % Lymphocytes % (Manual) Monocytes % (Manual) Platelet Estimate RBC Morphology Sodium 128 L Potassium 3.5 Chloride 93 L Carbon Dioxide 29 Anion Gap 9.5 BUN 7 L D Creatinine 0.60 L Estimated Creat Clear 105 Estimated GFR 136 Est GFR ( Amer) 164 Glucose 116 H POC Glucose 112 H 111 H Calcium 8.7 Magnesium 1.7 D Total Bilirubin 0.6 AST 45 ALT 40 Alkaline Phosphatase 95 Total Protein 6.0 L Albumin 3.3 L D Globulin 2.7 Albumin/Globulin Ratio 1.2 12/26/23 12/26/23 12/26/23 21:33 15:54 06:32 WBC RBC Hgb Hct MCV MCH MCHC RDW Plt Count MPV Neut % (Auto) Lymph % (Auto) [place] % (Auto) Eos % (Auto) Baso % (Auto) Neut # (Auto) Lymph # (Auto) [place] # (Auto) Eos # (Auto) Baso # (Auto) Total Counted 100 Neutrophils % (Manual) 80 H Band Neutrophils % 3.0 Lymphocytes % (Manual) 11 Monocytes % (Manual) 6 Platelet Estimate Slight increase RBC Morphology Normal Sodium Potassium Chloride Carbon Dioxide Anion Gap BUN Creatinine Estimated Creat Clear Estimated GFR Est GFR ( Amer) Glucose POC Glucose 142 H 145 H Calcium Magnesium Total Bilirubin AST ALT Alkaline Phosphatase Total Protein Albumin Globulin Albumin/Globulin Ratio DS: Diagnosis Discharge Diagnosis (1) Acute pancreatitis: Status: Acute Code(s): K85.90 - Acute pancreatitis without necrosis or infection, unspecified Qualifiers: Acute pancreatitis complication: uninfected necrosis (2) Hyponatremia: Status: Acute Code(s): E87.1 - Hypo-osmolality and hyponatremia (3) Diabetes: Status: Chronic Code(s): E11.9 - Type 2 diabetes mellitus without complications (4) HTN (hypertension): Status: Acute Code(s): I10 - Essential (primary) hypertension (5) HLD (hyperlipidemia): Status: Acute Code(s): E78.5 - Hyperlipidemia, unspecified (6) 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: Status: Chronic Code(s): E66.1 - Drug-induced obesity; Z68.31 - Body mass index [BMI] 31.0-31.9, adult Meds Home Medications and Allergies Home Medications Medication Instructions Recorded Confirmed Type atorvastatin 80 mg tablet 80 mg PO DAILY 90 days ##90 01/27/18 12/25/23 History metoprolol tartrate 100 mg tablet 100 mg PO DAILY 90 days ##90 01/27/18 12/25/23 History omeprazole 20 mg capsule,delayed 20 mg PO BID 90 days ##90 01/27/18 12/25/23 History release doxycycline hyclate 100 mg tablet 100 mg PO BID 12/26/23 12/26/23 History empagliflozin 25 mg tablet 25 mg PO DAILY 12/26/23 12/26/23 History (Jardiance) fluticasone propionate 50 2 spray intranasal DAILY 12/26/23 12/26/23 History mcg/actuation nasal spray,suspension gabapentin 600 mg tablet 300 mg PO HS 12/26/23 12/26/23 History loratadine 10 mg tablet 10 mg PO DAILY 12/26/23 12/26/23 History losartan 100 mg tablet 100 mg PO DAILY 12/26/23 12/26/23 History magnesium oxide 420 mg tablet 420 mg PO DAILY 12/26/23 12/26/23 History metformin 500 mg tablet,extended 1,000 mg PO BID 12/26/23 12/26/23 History release 24 hr potassium chloride 10 mEq 10 meq PO TID 12/26/23 12/26/23 History tablet,extended release sertraline 100 mg tablet 50 mg PO DAILY 12/26/23 12/26/23 History New Prescriptions to Start Prescriptions: Allergies Allergy/AdvReac Type Severity Reaction Status Date / Time No Known Allergies Allergy Verified 03/27/21 10:44 Discharge Plan Disposition Condition: Fair Follow up Plan Prescriptions/Medication Reconciliation: No Action atorvastatin 80 mg tablet 80 mg PO DAILY 90 Days Qty: 90 omeprazole 20 mg capsule,delayed release(DR/EC) 20 mg PO BID 90 Days Qty: 90 metoprolol tartrate 100 mg tablet 100 mg PO DAILY 90 Days Qty: 90 gabapentin 600 mg tablet 300 mg PO HS magnesium oxide 420 mg tablet 420 mg PO DAILY sertraline 100 mg tablet 50 mg PO DAILY potassium chloride 10 mEq tablet extended release 10 meq PO TID losartan 100 mg tablet 100 mg PO DAILY fluticasone propionate 50 mcg/actuation spray,suspension 2 spray INTRANASAL DAILY metformin 500 mg tablet extended release 24 hr 1,000 mg PO BID doxycycline hyclate 100 mg tablet 100 mg PO BID loratadine 10 mg tablet 10 mg PO DAILY Jardiance 25 mg tablet 25 mg PO DAILY Patient Discharge Instructions Patient Instructions: DI for Pancreatitis Providers Primary Care Provider: Provider,Referral Admit Provider: Gonzalez Bates Attending Provider: Gonzalez Bates
--- NOTE | 2023-12-27 11:56 | EXP.ACUTE.PN ---
Subjective *Date: 12/27/23 *Time: 16:56 Interval history: Patient slept well overnight. Still having intermittent pain but stable with current treatment. Had worsening of pain after transitioning to full liquid diet this morning. Taken for ultrasound of abdomen this morning. No fever overnight. No nausea or vomiting. Medical Exam Vital signs and Labs for Last 24 Hours: Vital Signs Temp Pulse Resp BP Pulse Ox O2 Del Method 12/27/23 11:00 Room Air 12/27/23 09:00 Room Air 12/27/23 07:50 98.8 F 94 H 16 153/91 H 92 L 12/27/23 07:39 Room Air 12/27/23 06:49 Room Air 12/27/23 05:00 Room Air 12/27/23 04:00 98.4 F 90 17 131/71 96 Room Air 12/27/23 02:40 Room Air 12/27/23 00:55 Room Air 12/26/23 22:55 Room Air 12/26/23 20:50 Room Air 12/26/23 20:08 98.4 F 79 17 147/74 H 96 Room Air 12/26/23 19:50 96 Room Air 12/26/23 18:56 Room Air 12/26/23 17:00 Room Air 12/26/23 16:00 97.9 F 95 H 19 159/82 H 97 Room Air 12/26/23 15:00 Room Air 12/26/23 13:00 Room Air Intake and Output 12/26/23 12/27/23 12/27/23 23:59 07:59 15:59 Output Total 0 / 0 Balance 0 / 1531 Output: Output, Urine Amount 0 / 0 Other: Number of Unmeasured Voids 1 Weight 99.79 kg Patient Weight 12/27/23 23:59 Weight 99.79 kg Laboratory Results - last 24 hr 12/26/23 06:32: Total Counted 100, Neutrophils % (Manual) 80 H, Band Neutrophils % 3.0, Lymphocytes % (Manual) 11, Monocytes % (Manual) 6, Platelet Estimate Slight increase, RBC Morphology Normal 12/26/23 15:54: POC Glucose 145 H 12/26/23 21:33: POC Glucose 142 H 12/27/23 03:27: POC Glucose 111 H 12/27/23 07:58: POC Glucose 112 H 12/27/23 07:59: WBC 13.0 H, RBC 4.77, Hgb 13.5 L, Hct 41.7 L, MCV 87.3, MCH 28.3, MCHC 32.4, RDW 14.2, Plt Count 466 H, MPV 7.4, Neut % (Auto) 79.8, Lymph % (Auto) 14.8, [place] % (Auto) 4.2, Eos % (Auto) 0.8, Baso % (Auto) 0.3, Neut # (Auto) 10.4 H, Lymph # (Auto) 1.9, [place] # (Auto) 0.6, Eos # (Auto) 0.1, Baso # (Auto) 0.0, Sodium 128 L, Potassium 3.5, Chloride 93 L, Carbon Dioxide 29, Anion Gap 9.5, BUN 7 L D, Creatinine 0.60 L, Estimated Creat Clear 105, Estimated GFR 136, Est GFR ( Amer) 164, Glucose 116 H, Calcium 8.7, Magnesium 1.7 D, Total Bilirubin 0.6, AST 45, ALT 40, Alkaline Phosphatase 95, Total Protein 6.0 L, Albumin 3.3 L D, Globulin 2.7, Albumin/Globulin Ratio 1.2 I & O for Labs for Last 24 Hours: Intake & Output 12/24/23 12/25/23 12/26/23 12/27/23 23:59 23:59 23:59 23:59 Intake Total 1531 / 1531 Output Total 0 / 0 0 / 0 Balance 0 / 0 1531 / 1531 Weight 101.605 kg 99.79 kg 99.79 kg Constitutional: Present no acute distress Head: Present atraumatic and normocephalic ENT: Present normal exam Respiratory: Present normal respiratory effort; Absent rhonchi, wheezes or crackles Cardiac: Present Reg Rate and Rhythm GI: Present soft, tenderness (Prominent left upper quadrant, no rebound) and normal bowel sounds; Absent distention Extremities: Present normal inspection and full ROM Skin: Present intact; Absent erythema Neuro: Present Grossly Intact, alert, awake, oriented x 3 and moves all extremities Assessment and Plan *Assessment and plan (1) Acute pancreatitis: Status: Acute Qualifiers: Acute pancreatitis complication: uninfected necrosis Category: Medical Code(s): K85.90 - Acute pancreatitis without necrosis or infection, unspecified (2) Common bile duct calculi: Status: Acute Category: Medical Code(s): K80.50 - Calculus of bile duct without cholangitis or cholecystitis without obstruction (3) Hyponatremia: Status: Acute Category: Medical Code(s): E87.1 - Hypo-osmolality and hyponatremia (4) Diabetes: Status: Chronic Category: Medical Code(s): E11.9 - Type 2 diabetes mellitus without complications (5) HTN (hypertension): Status: Acute Category: Medical Code(s): I10 - Essential (primary) hypertension (6) HLD (hyperlipidemia): Status: Acute Category: Medical Code(s): E78.5 - Hyperlipidemia, unspecified (7) 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 Morales is a 63-year-old male with history of diabetes, hypertension, hyperlipidemia. Presented with abdominal pain and chest pain. Workup in the ER concerning for pancreatitis. Discussed case with ER physician, request admission for pain control, IV fluids, medical management of his pancreatitis. Medicine agreed to admit for further management. Stable on room air. Having intermittent pain. Personally reviewed CT of abdomen showing stranding around pancreas consistent with pancreatitis. Lipase elevated at 517. Necessitating inpatient management. Stable overnight. Taken for ultrasound this morning. Continue clear liquid diet. Continues to require inpatient management. Problems addressed as follows: Necrotizing pancreatitis CBD calculus/sludge -Lipase 517, LDH 373, triglycerides 100. Patient had recently resumed taking Ozempic. Does not have a gallbladder, has not had alcohol in over 30 years -Ultrasound of abdomen obtained, shows concern for obstruction in the common bile duct. All there is no dilatation, there is concern for stone versus sludge or sediment. MRCP ordered for the morning. -Continue clear liquid diet. -Transition to oral pain regimen with oxycodone 5 mg every 4 hours as needed -If obstruction identified with MRCP, will necessitate transfer to higher level of care for ERCP. -White cell count 13, showing improvement. Patient remains afebrile. Likely reactive in the setting of pancreatitis. Continue to hold on antibiotics. - Liver function tests normal with bilirubin 0.6, AST 45, ALT 40, alk phos 95. -Repeat CBC, CMP, magnesium ordered for the morning. Type 2 diabetes: -Sliding scale insulin fingersticks ACHS. -Will need to discontinue Ozempic/GLP-1's moving forward. There are contraindications at this time given his pancreatitis -Will resume oral diabetes meds once tolerating oral intake Hyponatremia: -Sodium 128 on morning labs, chloride 93. Repeat sodium level in the morning. Monitor for improvement with fluid resuscitation -Kidney function normal with BUN 7, creatinine 0.6 Hypertension and hyperlipidemia, holding home meds given normotensive state Full code Lovenox 40 mg subcu daily Clear liquid
[2023-12-27] MEDS: OXYCODONE 5MG W/APAP 325MG TABLET 1 EACH PO ×2 (14:07→20:42)
[2023-12-27 15:51] VITALS: BP 127/66; PULSE 92; RESP 16; TEMP 36.6; O2SAT 98
[2023-12-27 20:00] VITALS: BP 133/73; PULSE 96; RESP 18; TEMP 37.1; O2SAT 97
[2023-12-27] MEDS: PANTOPRAZOLE 40MG TABLET 40 MG PO (20:41)
[2023-12-27] MEDS: GABAPENTIN 300MG CAPSULE 300 MG PO (20:41)
[2023-12-27 21:33] LABS: POC Glucose,Bedside 100 (70-110)
[2023-12-28 04:00] VITALS: BP 123/66; PULSE 84; RESP 18; TEMP 36.8; O2SAT 98; BMI 30.7
--- NOTE | 2023-12-28 05:14 | PC.NURSE ---
pt is A&Ox4 and on room air. Pt has called out once this shift complaining of abdominal pain. was treated per SEP. Abdomen soft and bowel sounds in all four quadrants.
[2023-12-28 05:55] LABS: POC Glucose,Bedside 95 (70-110)
[2023-12-28 06:57] LABS: Basophils % 0.3 % (0.1-2.0); Eosinophils # 0.1 K/mm3 (0.0-0.4); Eosinophils % 0.4 % (0.1-12.0); Hematocrit 41.5 % (42.0-52.0); Hemoglobin 13.4 g/dL (14.1-18.0); Lymphocytes # 2.1 K/mm3 (0.7-4.5); Lymphocytes % 18.1 % (10-50); Mean Corpuscular HGB Conc 32.3 g/dL (31.8-35.4); Mean Corpuscular Hemoglobin 27.9 pg (27.0-31.2); Mean Corpuscular Volume 86.3 fl (80-94); Mean Platelet Volume 7.5 fl (7.4-10.4); Monocytes # 0.8 K/mm3 (0.1-1.0); Monocytes % 6.9 % (1.7-9.3); Neutrophils # 8.5 K/mm3 (1.8-7.8); Neutrophils % 74.3 % (37.0-80.0); Platelet Count 408 K/mm3 (142-424); Red Blood Count 4.81 M/mm3 (4.60-6.20); Red Cell Distribution Width 14.3 % (11.5-17.5); White Blood Count 11.4 K/mm3 (4.8-10.8)
[2023-12-28 07:02] LABS: Chloride 92 mmol/L (98-107); Potassium 3.9 mmoL/L (3.5-5.1); Sodium 128 mmol/L (136-145)
[2023-12-28 07:05] LABS: Alanine Aminotransferase 35 U/L (12-78); Albumin Level 3.2 g/dl (3.5-5.0); Albumin/Globulin Ratio 1.1 (1.1-1.8); Alkaline Phosphatase 83 U/L (38-126); Anion Gap 10.9 mEq/L (5-15); Aspartate Amino Transferase 47 U/L (17-59); Bilirubin,Total 0.8 mg/dl (0.2-1.3); Blood Urea Nitrogen 6 mg/dl (9-20); Calcium 8.8 mg/dl (8.4-10.2); Carbon Dioxide 29 mmol/L (22.0-30.0); Creatinine Clearance Estimated 105 mL/min (50-200); Estimated Glomerular Filt Rate 136 ml/min (>60); GFR (African American) 164 ML/MIN (>60); Glucose 94 mg/dl (74-100); Total Protein,Serum 6.2 g/dl (6.3-8.2)
[2023-12-28 07:06] LABS: Magnesium 1.6 mg/dl (1.6-2.3)
[2023-12-28 08:00] VITALS: BP 118/73; PULSE 92; RESP 17; TEMP 36.8; O2SAT 96
--- NOTE | 2023-12-28 08:31 | MR_ITS ---
FINAL REPORT CLINICAL HISTORY: PANCREATITIS COMPARISON: CT abdomen pelvis 12/25/2023 FINDINGS: Multiplanar MR imaging of the abdomen was performed without contrast. An MRCP was also performed. 3D images were obtained and reviewed. There are small pleural effusions. Mild bibasilar atelectasis is noted. There is a small amount of ascites. Images of the liver reveal no evidence of mass. Postcholecystectomy. There is no evidence of biliary ductal dilatation. There is no evidence of biliary duct stone or stricture. Enlargement of the head and neck of the pancreas is noted with surrounding fluid/edema consistent with acute pancreatitis. There is moderate pancreatic ductal dilatation involving the body and the tail. There is nonvisualization of the pancreatic duct at the neck which may represent stricture or external compression. No well-defined separate mass is identified on these unenhanced images. Small renal cysts are noted. IMPRESSION: Findings consistent with acute pancreatitis. Stricture or external compression of the pancreatic duct at the neck with moderate ductal dilatation at the body and tail. No evidence of biliary duct stone or stricture. Postcholecystectomy. Reviewed, Interpreted and Dictated by Isaías Herbert III, MD Transcribed by Lana Tan Authenticated and [facility]
[2023-12-28] MEDS: METOPROLOL TARTRATE 50MG TABLET 100 MG PO (09:55)
[2023-12-28] MEDS: EMPAGLIFLOZIN 10MG TABLET 20 MG PO (09:55)
[2023-12-28] MEDS: PANTOPRAZOLE 40MG TABLET 40 MG PO ×2 (09:55→20:07)
[2023-12-28] MEDS: SERTRALINE 50MG TABLET 50 MG PO (09:55)
[2023-12-28] MEDS: ENOXAPARIN 40MG/0.4ML SYRINGE 40 MG SQ (09:56)
[2023-12-28] MEDS: OXYCODONE 5MG W/APAP 325MG TABLET 1 EACH PO ×3 (10:05→20:07)
[2023-12-28 10:23] LABS: POC Glucose,Bedside 88 (70-110)
--- NOTE | 2023-12-28 13:03 | INFXCTL.NOTE ---
. aware of MRI results and it's okay to start full liquid diet advance as tolerated.
[2023-12-28 14:36] VITALS: BMI 30.7
--- NOTE | 2023-12-28 15:51 | EXP.PN ---
Subjective *Date: 12/28/23 *Time: 15:51 Interval history: seen at bedside, comaplains of abdominal pain, nausea. no vomiting, had MRCP today Exam Data for Last 24 hours Vital signs and Labs for Last 24 Hours: Temp Pulse Resp BP Pulse Ox O2 Del Method 98.3 F 92 H 17 118/73 96 Room Air 12/28/23 08:00 12/28/23 08:00 12/28/23 08:00 12/28/23 08:00 12/28/23 08:00 12/28/23 14:04 Laboratory Results - last 24 hr 12/27/23 21:26: POC Glucose 100 12/28/23 03:44: POC Glucose 95 12/28/23 06:04: WBC 11.4 H, RBC 4.81, Hgb 13.4 L, Hct 41.5 L, MCV 86.3, MCH 27.9, MCHC 32.3, RDW 14.3, Plt Count 408, MPV 7.5, Neut % (Auto) 74.3, Lymph % (Auto) 18.1, [place] % (Auto) 6.9, Eos % (Auto) 0.4, Baso % (Auto) 0.3, Neut # (Auto) 8.5 H, Lymph # (Auto) 2.1, [place] # (Auto) 0.8, Eos # (Auto) 0.1, Baso # (Auto) 0.0, Sodium 128 L, Potassium 3.9, Chloride 92 L, Carbon Dioxide 29, Anion Gap 10.9, BUN 6 L, Creatinine 0.60 L, Estimated Creat Clear 105, Estimated GFR 136, Est GFR ( Amer) 164, Glucose 94, Calcium 8.8, Magnesium 1.6, Total Bilirubin 0.8, AST 47, ALT 35, Alkaline Phosphatase 83, Total Protein 6.2 L, Albumin 3.2 L, Globulin 3.0, Albumin/Globulin Ratio 1.1 12/28/23 10:07: POC Glucose 88 I & O for Last 24 hours: Intake & Output 12/25/23 12/26/23 12/27/23 12/28/23 23:59 23:59 23:59 23:59 Intake Total 1531 / 1531 1080 / 1200 120 / 120 Output Total 0 / 0 0 / 0 0 / 0 Balance 0 / 0 1531 / 1531 1080 / 1200 120 / 120 Weight 101.605 kg 99.79 kg 99.79 kg 99.78 kg Constitutional Constitutional: no acute distress *Routine HEENT Exam Head: Present normocephalic Eye: Present EOMI and PERRL ENT: Present mucous membranes moist *Routine Neck Exam Neck: Present supple; Absent lymphadenopathy *Routine Respiratory Exam Respiratory: Present CTA bilaterally *Routine Cardiovascular Exam Cardiovascular: Present RRR *Routine Abdominal Exam Abdominal: Present soft and normoactive bowel sounds; Absent tenderness *Routine Extremities Exam Extremities: Absent cyanosis, clubbing or edema *Routine Skin Exam Skin: Present warm; Absent rash *Routine Neurological Exam Neurological: Present alert and oriented X3 Assessment and Plan *Assessment and plan (1) Acute pancreatitis: Status: Acute Qualifiers: Acute pancreatitis complication: uninfected necrosis Category: Medical Code(s): K85.90 - Acute pancreatitis without necrosis or infection, unspecified (2) Common bile duct calculi: Status: Acute Category: Medical Code(s): K80.50 - Calculus of bile duct without cholangitis or cholecystitis without obstruction (3) Hyponatremia: Status: Acute Category: Medical Code(s): E87.1 - Hypo-osmolality and hyponatremia (4) Diabetes: Status: Chronic Category: Medical Code(s): E11.9 - Type 2 diabetes mellitus without complications (5) HTN (hypertension): Status: Acute Category: Medical Code(s): I10 - Essential (primary) hypertension (6) HLD (hyperlipidemia): Status: Acute Category: Medical Code(s): E78.5 - Hyperlipidemia, unspecified (7) 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 Morales is a 63-year-old male with history of diabetes, hypertension, hyperlipidemia. Presented with abdominal pain and chest pain. Workup in the ER concerning for pancreatitis. Discussed case with ER physician, request admission for pain control, IV fluids, medical management of his pancreatitis. Medicine agreed to admit for further management. Stable on room air. Having intermittent pain. Personally reviewed CT of abdomen showing stranding around pancreas consistent with pancreatitis. Necrotizing pancreatitis CBD calculus/sludge -Ultrasound of abdomen obtained, shows concern for obstruction in the common bile duct. All there is no dilatation, there is concern for stone versus sludge or sediment MRCPP shows Findings consistent with acute pancreatitis. Stricture or external compression of the pancreatic duct at the neck with moderate ductal dilatation at the body and tail. will initiate transfer to higher level of care for possible ERCP -Full liquid diet. -Transition to oral pain regimen with oxycodone 5 mg every 4 hours as needed Type 2 diabetes: -Sliding scale insulin fingersticks ACHS. Hyponatremia: monitor Hypertension and hyperlipidemia, holding home meds given normotensive state Full code Lovenox 40 mg subcu daily
[2023-12-28 15:57] VITALS: BP 107/71; PULSE 68; RESP 16; TEMP 36.6; O2SAT 94
[2023-12-28 16:09] LABS: POC Glucose,Bedside 108 (70-110)
--- NOTE | 2023-12-28 16:32 | PC.NURSE ---
Pt. is aox4, up astol, 90's on RA, 20g L AC SL, pain meds given twice this shift.
[2023-12-28 20:00] VITALS: BP 109/62; PULSE 79; RESP 18; TEMP 36.7; O2SAT 97
[2023-12-28 20:07] VITALS: O2SAT 97
[2023-12-28] MEDS: GABAPENTIN 300MG CAPSULE 300 MG PO (20:08)
[2023-12-28 22:00] LABS: POC Glucose,Bedside 118 (70-110)
[2023-12-29 03:34] LABS: POC Glucose,Bedside 93 (70-110)
[2023-12-29 04:00] VITALS: BP 121/81; PULSE 74; RESP 18; TEMP 36.6; O2SAT 98; BMI 30.4
--- NOTE | 2023-12-29 04:08 | PC.NURSE ---
Patient alert and oriented x4. Tolerating room air well. Complaints of abdominal pain once this shift and treated per MAR. No complaints of N/V/D. Abdomen soft and tender, bowel sounds active x4 quadrants. No new complaints. Call light within reach and bed in lowest position.
[2023-12-29] MEDS: CALCIUM CARBONATE 500MG CHEWTAB 500 MG PO (06:38)
[2023-12-29] MEDS: OXYCODONE 5MG W/APAP 325MG TABLET 1 EACH PO (06:38)
[2023-12-29 06:48] LABS: Chloride 91 mmol/L (98-107); Potassium 3.5 mmoL/L (3.5-5.1); Sodium 129 mmol/L (136-145)
[2023-12-29 06:50] LABS: Alanine Aminotransferase 31 U/L (12-78); Aspartate Amino Transferase 41 U/L (17-59); Blood Urea Nitrogen 6 mg/dl (9-20); Creatinine Clearance Estimated 104 mL/min (50-200); Estimated Glomerular Filt Rate 136 ml/min (>60); GFR (African American) 164 ML/MIN (>60)
[2023-12-29 06:51] LABS: Albumin Level 3.2 g/dl (3.5-5.0); Albumin/Globulin Ratio 1.1 (1.1-1.8); Alkaline Phosphatase 81 U/L (38-126); Anion Gap 11.5 mEq/L (5-15); Bilirubin,Total 0.5 mg/dl (0.2-1.3); Calcium 8.7 mg/dl (8.4-10.2); Carbon Dioxide 30 mmol/L (22.0-30.0); Globulin 2.8 g/dL (1.3-3.2); Glucose 100 mg/dl (74-100)
[2023-12-29 07:54] VITALS: BP 122/70; PULSE 78; RESP 16; TEMP 36.7; O2SAT 97
[2023-12-29] MEDS: SERTRALINE 50MG TABLET 50 MG PO (08:33)
[2023-12-29] MEDS: PANTOPRAZOLE 40MG TABLET 40 MG PO (08:33)
[2023-12-29] MEDS: EMPAGLIFLOZIN 10MG TABLET 20 MG PO (08:33)
[2023-12-29] MEDS: METOPROLOL TARTRATE 50MG TABLET 100 MG PO (08:34)
[2023-12-29] MEDS: ENOXAPARIN 40MG/0.4ML SYRINGE 40 MG SQ (08:34)
[2023-12-29 11:46] LABS: POC Glucose,Bedside 96 (70-110)
--- NOTE | 2023-12-29 13:17 | EXP.EVENT.NO ---
Patient transfer iniated to [facility].
--- NOTE | 2023-12-29 15:02 | P.DS_ITS ---
General Admission date:: 12/25/23 Discharge date: 12/29/23 HPI HPI HPI: Mr. Morales is a 63-year-old male with history of diabetes, hypertension, hyperlipidemia. Presented with abdominal pain and chest pain. Workup in the ER concerning for pancreatitis. Discussed case with ER physician, request admission for pain control, IV fluids, medical management of his pancreatitis. Medicine agreed to admit for further management. Stable on room air. Having intermittent pain. Personally reviewed CT of abdomen showing stranding around pancreas consistent with pancreatitis. Hospital Course Hospital Course Hospital Course: Mr. Morales is a 63-year-old male with history of diabetes, hypertension, hyperlipidemia. Presented with abdominal pain and chest pain. Workup in the ER concerning for pancreatitis. Discussed case with ER physician, request admission for pain control, IV fluids, medical management of his pancreatitis. Medicine agreed to admit for further management. Stable on room air. Having intermittent pain. Personally reviewed CT of abdomen showing stranding around pancreas consistent with pancreatitis. Necrotizing pancreatitis CBD calculus/sludge -Ultrasound of abdomen obtained, shows concern for obstruction in the common bile duct. All there is no dilatation, there is concern for stone versus sludge or sediment MRCPP shows Findings consistent with acute pancreatitis. Stricture or external compression of the pancreatic duct at the neck with moderate ductal dilatation at the body and tail. will initiate transfer to higher level of care for possible ERCP patient was transferred to [facility] On the date of discharge, the patient reported feeling stable. The patient was found not to be in any acute distress, and no new abnormalities on physical examination. Further, the patient expressed appropriate understanding of, and agreement with, the discharge recommendations, medications, and plan. Time spent 37 mins Exam Data for Last 24 hours Vital signs and Labs for Last 24 Hours: Temp Pulse Resp BP Pulse Ox O2 Del Method O2 Flow Rate 98.0 F 78 16 122/70 97 Room Air 2 12/29/23 07:54 12/29/23 07:54 12/29/23 07:54 12/29/23 07:54 12/29/23 07:54 12/29/23 14:42 12/28/23 16:31 Laboratory Results - last 24 hr 12/28/23 16:01: POC Glucose 108 12/28/23 21:52: POC Glucose 118 H 12/29/23 03:26: POC Glucose 93 12/29/23 06:30: Sodium 129 L, Potassium 3.5, Chloride 91 L, Carbon Dioxide 30, Anion Gap 11.5, BUN 6 L, Creatinine 0.60 L, Estimated Creat Clear 104, Estimated GFR 136, Est GFR ( Amer) 164, Glucose 100, Calcium 8.7, Total Bilirubin 0.5, AST 41, ALT 31, Alkaline Phosphatase 81, Total Protein 6.0 L, Albumin 3.2 L , Globulin 2.8, Albumin/Globulin Ratio 1.1 12/29/23 11:15: POC Glucose 96 I & O for Last 24 hours: Intake & Output 12/26/23 12/27/23 12/28/23 12/29/23 23:59 23:59 23:59 23:59 Intake Total 1531 / 1531 1080 / 1200 840 / 840 920 / 920 Output Total 0 / 0 0 / 0 0 / 0 Balance 1531 / 1531 1080 / 1200 840 / 840 920 / 920 Weight 99.79 kg 99.79 kg 99.78 kg 98.792 kg Constitutional Constitutional: no acute distress *Routine HEENT Exam Head: Present normocephalic Eye: Present EOMI and PERRL ENT: Present mucous membranes moist *Routine Neck Exam Neck: Present supple; Absent lymphadenopathy *Routine Respiratory Exam Respiratory: Present CTA bilaterally *Routine Cardiovascular Exam Cardiovascular: Present RRR *Routine Abdominal Exam Abdominal: Present soft, normoactive bowel sounds and tenderness *Routine Extremities Exam Extremities: Absent cyanosis, clubbing or edema *Routine Skin Exam Skin: Present warm; Absent rash *Routine Neurological Exam Neurological: Present alert and oriented X3 Results Data Completed and Pending Labs on day of discharge: Labs from last 24 hours 12/29/23 12/29/23 12/29/23 11:15 06:30 03:26 Sodium 129 L Potassium 3.5 Chloride 91 L Carbon Dioxide 30 Anion Gap 11.5 BUN 6 L Creatinine 0.60 L Estimated Creat Clear 104 Estimated GFR 136 Est GFR ( Amer) 164 Glucose 100 POC Glucose 96 93 Calcium 8.7 Total Bilirubin 0.5 AST 41 ALT 31 Alkaline Phosphatase 81 Total Protein 6.0 L Albumin 3.2 L Globulin 2.8 Albumin/Globulin Ratio 1.1 12/28/23 12/28/23 21:52 16:01 Sodium Potassium Chloride Carbon Dioxide Anion Gap BUN Creatinine Estimated Creat Clear Estimated GFR Est GFR ( Amer) Glucose POC Glucose 118 H 108 Calcium Total Bilirubin AST ALT Alkaline Phosphatase Total Protein Albumin Globulin Albumin/Globulin Ratio DS: Diagnosis Discharge Diagnosis (1) Acute pancreatitis: Status: Acute Code(s): K85.90 - Acute pancreatitis without necrosis or infection, unspecified Qualifiers: Acute pancreatitis complication: uninfected necrosis (2) Common bile duct calculi: Status: Acute Code(s): K80.50 - Calculus of bile duct without cholangitis or cholecystitis without obstruction (3) Hyponatremia: Status: Acute Code(s): E87.1 - Hypo-osmolality and hyponatremia (4) Diabetes: Status: Chronic Code(s): E11.9 - Type 2 diabetes mellitus without complications (5) HTN (hypertension): Status: Acute Code(s): I10 - Essential (primary) hypertension (6) HLD (hyperlipidemia): Status: Acute Code(s): E78.5 - Hyperlipidemia, unspecified (7) 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: Status: Chronic Code(s): E66.1 - Drug-induced obesity; Z68.31 - Body mass index [BMI] 31.0-31.9, adult Meds Home Medications and Allergies Home Medications Medication Instructions Recorded Confirmed Type atorvastatin 80 mg tablet 80 mg PO DAILY 90 days ##90 01/27/18 12/25/23 History metoprolol tartrate 100 mg tablet 100 mg PO DAILY 90 days ##90 01/27/18 12/25/23 History omeprazole 20 mg capsule,delayed 20 mg PO BID 90 days ##90 01/27/18 12/25/23 History release doxycycline hyclate 100 mg tablet 100 mg PO BID 12/26/23 12/26/23 History empagliflozin 25 mg tablet 25 mg PO DAILY 12/26/23 12/26/23 History (Jardiance) fluticasone propionate 50 2 spray intranasal DAILY 12/26/23 12/26/23 History mcg/actuation nasal spray,suspension gabapentin 600 mg tablet 300 mg PO HS 12/26/23 12/26/23 History loratadine 10 mg tablet 10 mg PO DAILY 12/26/23 12/26/23 History losartan 100 mg tablet 100 mg PO DAILY 12/26/23 12/26/23 History magnesium oxide 420 mg tablet 420 mg PO DAILY 12/26/23 12/26/23 History metformin 500 mg tablet,extended 1,000 mg PO BID 12/26/23 12/26/23 History release 24 hr potassium chloride 10 mEq 10 meq PO TID 12/26/23 12/26/23 History tablet,extended release sertraline 100 mg tablet 50 mg PO DAILY 12/26/23 12/26/23 History New Prescriptions to Start Prescriptions: Allergies Allergy/AdvReac Type Severity Reaction Status Date / Time No Known Allergies Allergy Verified 03/27/21 10:44 Discharge Plan Disposition Patient Disposition: [facility] Condition: Fair Discharge Order Discharge Orders: Discharge Order (Routine); Ordered 12/29/23 Ordered By: Lisa Ghotra Follow up Plan Follow up with: Mckenna Diallo PA [Physician Manager Copy] - 01/03/24 9:00 am Prescriptions/Medication Reconciliation: Continued atorvastatin 80 mg tablet 80 mg PO DAILY 90 Days Qty: 90 omeprazole 20 mg capsule,delayed release(DR/EC) 20 mg PO BID 90 Days Qty: 90 metoprolol tartrate 100 mg tablet 100 mg PO DAILY 90 Days Qty: 90 gabapentin 600 mg tablet 300 mg PO HS magnesium oxide 420 mg tablet 420 mg PO DAILY sertraline 100 mg tablet 50 mg PO DAILY potassium chloride 10 mEq tablet extended release 10 meq PO TID losartan 100 mg tablet 100 mg PO DAILY fluticasone propionate 50 mcg/actuation spray,suspension 2 spray INTRANASAL DAILY metformin 500 mg tablet extended release 24 hr 1,000 mg PO BID doxycycline hyclate 100 mg tablet 100 mg PO BID loratadine 10 mg tablet 10 mg PO DAILY Jardiance 25 mg tablet 25 mg PO DAILY Problem Reconciliation Problems Reviewed?: Yes Patient Discharge Instructions ACTIVITY: Ambulate as tolerated DIET: continue same diet Patient Instructions: DI for Pancreatitis Providers Primary Care Provider: Provider,Referral Admit Provider: Gonzalez Bates Attending Provider: Gonzalez Bates
== END 2023-12-29 15:47 | disposition short-term general hospital (02) | DRG 439 ==
LOC: ER 15:36 → 2ND 12-26 05:42
PROVIDERS: Admitting Provider Internal Medicine Adolescent Medicine; Emergency Provider Emergency Medicine; Visit Provider Internal Medicine Adolescent Medicine
DX: K85.91 Acute pancreatitis with uninfected necrosis, unspecified (principal); E87.1 Hypo-osmolality and hyponatremia; F17.210 Nicotine dependence, cigarettes, uncomplicated; K21.9 Gastro-esophageal reflux disease without esophagitis; E11.9 Type 2 diabetes mellitus without complications; F06.31 Mood disorder due to known physiological condition with depressive features; I10 Essential (primary) hypertension; E66.1 Drug-induced obesity; Z68.30 Body mass index [BMI] 30.0-30.9, adult; E78.5 Hyperlipidemia, unspecified
CPT/HCPCS: 36415; 71045; 74177; 74181; 76376; 76705; 80053; 80061; 82962; 83036; 83605; 83615; 83690; 83735; 84484; 85007; 85025; 93005; 99285; J1170; J1650; J2270; J2405; J3475; J7120; Q9967

== ENCOUNTER 2024-02-16 08:45 | Outpatient (CLI) | payer MEDICARE, OTHER, SELFPAY ==
[2024-02-16 18:41] LABS: Basophils # 0.1 K/mm3 (0-0.2); Basophils % 0.8 % (0.1-2.0); Eosinophils # 0.2 K/mm3 (0.0-0.4); Eosinophils % 2.8 % (0.1-12.0); Hematocrit 43.5 % (42.0-52.0); Hemoglobin 13.7 g/dL (14.1-18.0); Lymphocytes # 2.4 K/mm3 (0.7-4.5); Lymphocytes % 31.6 % (10-50); Mean Corpuscular HGB Conc 31.5 g/dL (31.8-35.4); Mean Corpuscular Volume 92.1 fl (80-94); Mean Platelet Volume 8.6 fl (7.4-10.4); Monocytes # 0.4 K/mm3 (0.1-1.0); Monocytes % 5.7 % (1.7-9.3); Neutrophils # 4.4 K/mm3 (1.8-7.8); Neutrophils % 59.2 % (37.0-80.0); Platelet Count 377 K/mm3 (142-424); Red Blood Count 4.72 M/mm3 (4.60-6.20); Red Cell Distribution Width 15.5 % (11.5-17.5); White Blood Count 7.5 K/mm3 (4.8-10.8)
[2024-02-16 18:59] LABS: Alanine Aminotransferase 14 U/L (12-78); Albumin Level 3.4 g/dl (3.5-5.0); Albumin/Globulin Ratio 1.3 (1.1-1.8); Alkaline Phosphatase 80 U/L (38-126); Amylase 177 U/L (30-110); Anion Gap 9.5 mEq/L (5-15); Aspartate Amino Transferase 22 U/L (17-59); Bilirubin,Indirect 0.4 mg/dL (0.0-0.9); Bilirubin,Total 0.4 mg/dl (0.2-1.3); Bilirubin,Unconjugated 0.6 mg/dL (0.0-1.1); Blood Urea Nitrogen 4 mg/dl (9-20); Calcium 8.9 mg/dl (8.4-10.2); Carbon Dioxide 26 mmol/L (22.0-30.0); Chloride 106 mmol/L (98-107); Estimated Glomerular Filt Rate 167 ml/min (>60); GFR (African American) 203 ML/MIN (>60); Globulin 2.7 g/dL (1.3-3.2); Glucose 140 mg/dl (74-100); Lipase 349 U/L (23-300); Potassium 3.5 mmoL/L (3.5-5.1); Sodium 138 mmol/L (136-145); Total Protein,Serum 6.1 g/dl (6.3-8.2)
[2024-02-16 19:31] LABS: Prostate Specific Ag Screen 0.6 ng/ml (0.0-4.0)
[2024-02-16 20:38] LABS: Creatinine,Urine Random 167 mg/dL (Not Estab.)
[2024-02-16 20:42] LABS: Microalbumin/Creatinine Ratio 10.7
== END 2024-02-16 23:59 | disposition home or self-care (01) ==
LOC: LAB.DROPOF 02-17 13:52
PROVIDERS: Visit Provider Family Medicine
DX: E07.9 Disorder of thyroid, unspecified (principal); N40.0 Benign prostatic hyperplasia without lower urinary tract symptoms; I20.89 Other forms of angina pectoris; K85.90 Acute pancreatitis without necrosis or infection, unspecified; Z12.5 Encounter for screening for malignant neoplasm of prostate; E11.9 Type 2 diabetes mellitus without complications; Z79.84 Long term (current) use of oral hypoglycemic drugs; Z79.85 Long-term (current) use of injectable non-insulin antidiabetic drugs; Z72.0 Tobacco use; Z80.9 Family history of malignant neoplasm, unspecified; I10 Essential (primary) hypertension
CPT/HCPCS: 80053; 80076; 82043; 82150; 82570; 83690; 84443; 85025; G0103

== ENCOUNTER 2024-05-29 10:34 | Emergency (ER) | payer MEDICARE, OTHER, SELFPAY ==
[2024-05-29] VITALS (29 sets, daily range): BP systolic 78–184; BP diastolic 46–114; PULSE 64–78; RESP 18–20; TEMP 36.6; O2SAT 93–100; BMI 32.6
[2024-05-29] MEDS: 0.9 % SODIUM CHLORIDE 1000ML 1,000 ML 999 ML IV ×2 (11:19→15:49)
--- NOTE | 2024-05-29 11:20 | ECG_ITS ---
APPROVED REPORT Exam: Resting ECG HR:71 bpm ECG Measurements Heart Rate 71 AXES TN 188 P 46 QRSd 101 QRS -37 QT 426 T -11 QTc 449 Conclusion SINUS RHYTHM LEFT AXIS DEVIATION [QRS AXIS < -30] PATTERN CONSISTENT WITH PULMONARY DISEASE ABNORMAL ECG Electronically signed by : BABS RUSSO, 05/29/2024 16:57:20
[2024-05-29 11:21] LABS: Basophils # 0.1 K/mm3 (0-0.2); Basophils % 0.8 % (0.1-2.0); Eosinophils # 0.2 K/mm3 (0.0-0.4); Hematocrit 37.2 % (42.0-52.0); Hemoglobin 13.3 g/dL (14.1-18.0); Lymphocytes # 1.6 K/mm3 (0.7-4.5); Lymphocytes % 13.2 % (10-50); Mean Corpuscular HGB Conc 35.7 g/dL (31.8-35.4); Mean Corpuscular Hemoglobin 28.1 pg (27.0-31.2); Mean Corpuscular Volume 78.9 fl (80-94); Mean Platelet Volume 7.3 fl (7.4-10.4); Monocytes # 0.8 K/mm3 (0.1-1.0); Monocytes % 6.2 % (1.7-9.3); Neutrophils # 9.4 K/mm3 (1.8-7.8); Neutrophils % 77.8 % (37.0-80.0); Platelet Count 350 K/mm3 (142-424); Red Blood Count 4.72 M/mm3 (4.60-6.20); Red Cell Distribution Width 15.5 % (11.5-17.5); White Blood Count 12.1 K/mm3 (4.8-10.8)
[2024-05-29 11:26] LABS: Alanine Aminotransferase 290 U/L (12-78); Albumin Level 3.6 g/dl (3.5-5.0); Albumin/Globulin Ratio 0.9 (1.1-1.8); Anion Gap 14.8 mEq/L (5-15); Aspartate Amino Transferase 524 U/L (17-59); Bilirubin,Total 16.9 mg/dl (0.2-1.3); Blood Urea Nitrogen 19 mg/dl (9-20); Carbon Dioxide 24 mmol/L (22.0-30.0); Chloride 96 mmol/L (98-107); Creatinine Clearance Estimated 61 mL/min (50-200); Estimated Glomerular Filt Rate 38 ml/min (>60); GFR (African American) 46 ML/MIN (>60); Globulin 3.8 g/dL (1.3-3.2); Glucose 186 mg/dl (74-100); Potassium 3.8 mmoL/L (3.5-5.1); Sodium 131 mmol/L (136-145); Total Protein,Serum 7.4 g/dl (6.3-8.2)
[2024-05-29 11:29] LABS: Ammonia < 9 umol/L (9-30)
[2024-05-29 11:32] LABS: Alkaline Phosphatase 1279 U/L (38-126)
[2024-05-29 11:41] LABS: Troponin I < 0.01 ng/ml (0.00-0.034)
--- NOTE | 2024-05-29 11:47 | CT_ITS ---
FINAL REPORT CLINICAL HISTORY: pancreatic cancer, severe hyperbili COMPARISON: 12/25/2023 FINDINGS: CT OF THE ABDOMEN AND PELVIS WITH CONTRAST Axial CT images of the abdomen and pelvis were obtained after the administration of IV contrast. Coronal and sagittal reformatted images were also obtained and reviewed. This study was performed with techniques to keep radiation doses as low as reasonably achievable (ALARA). Individualized dose reduction techniques using automated exposure control or adjustment of mA and/or kV according to the patient's size were employed. Abdomen: There is mild scarring in the lung bases. The heart is normal in size. There is moderate worsening of the dilated intra and extrahepatic biliary ducts. There is a new stent between the stomach and a fluid collection in an adjacent to the pancreatic body. There is worsening soft tissue with adjacent stranding adjacent to the pancreatic head, neck and body consistent with worsening inflammatory change. The low-attenuation in the pancreatic head may represent worsening pancreatitis versus extension of pancreatic necrosis. The adrenals are enlarged, favor hyperplasia. A small left renal cyst is present. There are left abdomen venous varicosities present. The aorta is normal in caliber. Moderate vascular calcifications are present. A small umbilical hernia containing fat is present. Pelvis: The distal appendix is distended without significant adjacent inflammatory change, stable. The urinary bladder is unremarkable. No inflammatory process is seen. There is no evidence of mass or adenopathy. There is no evidence of bowel obstruction. IMPRESSION: There has been interval placement of a stent as described above, with worsening inflammatory changes and worsening appearance of the pancreatic head, worsening pancreatitis versus pancreatic necrosis. Recommend follow-up CT. Moderate worsening of the biliary ductal dilatation, that may be secondarily to external compression of the common bile duct. Reviewed, Interpreted and Dictated by Isaías Herbert III, MD Transcribed by Kassie Rivas Authenticated and [facility]
[2024-05-29 12:04] LABS: Lactic Acid 1.9 mmol/L (0.7-2.1)
--- NOTE | 2024-05-29 12:04 | CT_ITS ---
FINAL REPORT CLINICAL HISTORY: dizzy, pancreatic cancer COMPARISON: None FINDINGS: Axial images of the head were obtained without contrast. Coronal and sagittal reformatted images were also obtained.This study was performed with techniques to keep radiation doses as low as reasonably achievable (ALARA). Individualized dose reduction techniques using automated exposure control or adjustment of mA and/or kV according to the patient's size were employed. There is no evidence of intracranial hemorrhage or mass. The ventricular size is within normal limits. There is no evidence of shift of the midline structures. No abnormal extra axial fluid collection is identified. No skull abnormality is seen on the bone window images. IMPRESSION: No acute intracranial abnormality. Reviewed, Interpreted and Dictated by Isaías Herbert III, MD Transcribed by Kassie Rivas Authenticated and [facility]
--- NOTE | 2024-05-29 12:05 | ED_ITS ---
Discharge Plan Disposition Patient Disposition: Xfer Short-Term Hosp Prescriptions Prescriptions: No Action Reguloid (psyllium husk) 3 gram/5.4 gram powder PO atorvastatin 80 mg tablet 80 mg PO DAILY 90 Days Qty: 90 omeprazole 20 mg capsule,delayed release(DR/EC) 20 mg PO BID 90 Days Qty: 90 metoprolol tartrate 100 mg tablet 100 mg PO DAILY 90 Days Qty: 90 gabapentin 600 mg tablet 300 mg PO HS Qty: 30 2RF levothyroxine 25 mcg capsule 25 mcg PO DAILY Qty: 30 0RF magnesium oxide 420 mg tablet 420 mg PO DAILY sertraline 100 mg tablet 50 mg PO DAILY potassium chloride 10 mEq tablet extended release 10 meq PO TID losartan 100 mg tablet 100 mg PO DAILY fluticasone propionate 50 mcg/actuation spray,suspension 2 spray INTRANASAL DAILY metformin 500 mg tablet extended release 24 hr 1,000 mg PO BID loratadine 10 mg tablet 10 mg PO DAILY Jardiance 25 mg tablet 25 mg PO DAILY Referrals Follow up/Referrals: Olive Cooney APRN [Primary Care Provider] - See instructions Clinical Impressions Clinical Impression: Pancreatic abnormality, Direct hyperbilirubinemia, Transaminitis Print Language Print Language: [place] Island[place] Discharge ED Provider: Calvin Palacios General Adult HPI General Chief complaint: Weakness Stated complaint: weakness Time Seen by Provider: 05/29/24 11:30 Mode of Arrival: Wheelchair Source of Information: Patient and Parent(s) Limitations: No Limitations Description of Symptoms (Recalled from ER Triage Doc. by RN): c/o weakness for a few days, no appetite for 2 weeks. states recently in the last 3 weeks doctors have found that pt has pancreatitic CA with an abscess near his pancreas. PT has recently had a port placed to start chemo. History of Present Illness HPI narrative: Patient is a 64-year-old male with past medical history of recently diagnosed pancreatic cancer pending investigation at [facility] not currently on chemotherapy who presents emergency department for evaluation of global weakness, dizziness upon standing and difficulty walking due to global weakness. In January patient was taking Ozempic for which he had decreased appetite, ultimately he was diagnosed with pancreatitis and then subsequently due to things not resolving he was reportedly diagnosed with pancreatic cancer which was complicated by fluid collection that was drained 2 weeks ago at [facility] per his report. Since then he had a port placed and was pending chemotherapy initiation. Over the last week he has had global weakness, no worsening abdominal pain and dizziness only rising from standing. No chest pain. No other acute complaints at this time. Related Data Home Medications ?Medication ?Instructions ?Recorded ?Confirmed atorvastatin 80 mg tablet 80 mg PO DAILY 90 days ##90 01/27/18 02/16/24 metoprolol tartrate 100 mg tablet 100 mg PO DAILY 90 days ##90 01/27/18 02/16/24 omeprazole 20 mg capsule,delayed 20 mg PO BID 90 days ##90 01/27/18 02/16/24 release empagliflozin 25 mg tablet 25 mg PO DAILY 12/26/23 02/16/24 (Jardiance) fluticasone propionate 50 2 spray intranasal DAILY 12/26/23 02/16/24 mcg/actuation nasal spray,suspension loratadine 10 mg tablet 10 mg PO DAILY 12/26/23 02/16/24 losartan 100 mg tablet 100 mg PO DAILY 12/26/23 02/16/24 magnesium oxide 420 mg tablet 420 mg PO DAILY 12/26/23 02/16/24 metformin 500 mg tablet,extended 1,000 mg PO BID 12/26/23 02/16/24 release 24 hr potassium chloride 10 mEq 10 meq PO TID 12/26/23 02/16/24 tablet,extended release sertraline 100 mg tablet 50 mg PO DAILY 12/26/23 02/16/24 psyllium husk 3 gram/5.4 gram oral PO 01/05/24 02/16/24 powder (Reguloid (psyllium husk)) Previous Rx's ?Medication ?Instructions ?Recorded gabapentin 600 mg tablet 300 mg (1/2 x 600 mg) PO HS #30 02/16/24 tabs levothyroxine 25 mcg capsule 25 mcg PO DAILY #30 caps 02/21/24 Allergies Allergy/AdvReac Type Severity Reaction Status Date / Time No Known Allergies Allergy Verified 02/16/24 08:52 [facility] Disclaimer: The information contained in this section may have been updated after the patient was seen, as this information can be updated by other users. Medical History Exposure to COVID-19 virus Cholecystitis HLD (hyperlipidemia) HTN (hypertension) Back pain Diabetes Surgical History H/O hernia repair Previous back surgery Family History Other Arthritis Family history of cancer Family history of diabetes mellitus type II Heart disease Social History Smoking Status: Current every day smoker tobacco type: cigarettes packs per day: 1 alcohol intake: never counseling provided: none substance use type: denies use current occupational status: other Travel in the last 8 weeks: None housing: house Other Medical History Have you received the Flu Vaccine for this season: No Have you received the Pneumonia Vaccine: Yes ROS Obtained: Yes Systems reviewed as appropriate & no additional complaints except as documented Physical Exam General General appearance: alert Head Head exam: atraumatic and normocephalic Eye Eye exam: Present PERRL, EOMI and scleral icterus ENT ENT exam: Present mucous membranes moist Neck Neck exam: Present normal inspection Chest Chest inspection: Present normal inspection and symmetric chest wall rise Respiratory Respiratory exam: Present normal lung sounds bilaterally; Absent respiratory distress Cardiovascular Cardiovascular exam: Present regular rate and normal rhythm Abdominal Exam Abdominal exam: Present soft; Absent tenderness, guarding or rebound Extremities Exam Extremities exam: Present normal inspection Neurological Exam Neurological exam: Present alert, oriented X3 and CN II-XII intact; Absent motor sensory deficit Psychiatric Psychiatric exam: Present normal affect Skin Skin exam: Present warm and dry Medical Decision Making Medical Records Screening: Per USPSTF and CDC recommendations, given the prevalence of disease in our region, it is our hospital?s policy to screen for HIV and viral Hepatitis for all patients aged 18 and over and those with ongoing risk factors. Ang Inquiry Pt receiving controlled substance: No Vital Signs: 05/29/24 10:35 05/29/24 10:57 05/29/24 11:00 Temperature 97.8 F Temperature Source Oral Pulse Rate 73 71 Pulse Rate [Left Radial] 71 Respiratory Rate 18 Blood Pressure 78/53 L 81/48 L Blood Pressure [Right Arm] 84/46 L Blood Pressure Mean Blood Pressure Mean [Right Arm] 58 Blood Pressure Source [Right Arm] Automatic Cuff Blood Pressure Position [Right Arm] Sitting 02 Sat by Pulse Oximetry 100 100 100 Oxygen Delivery Method Room Air 05/29/24 11:03 05/29/24 11:15 05/29/24 11:30 Temperature Temperature Source Pulse Rate 64 Pulse Rate [Left Radial] Respiratory Rate Blood Pressure 82/51 L 97/59 L 109/61 L Blood Pressure [Right Arm] Blood Pressure Mean 77 Blood Pressure Mean [Right Arm] Blood Pressure Source [Right Arm] Blood Pressure Position [Right Arm] 02 Sat by Pulse Oximetry 100 100 Oxygen Delivery Method 05/29/24 11:45 05/29/24 12:00 05/29/24 12:30 Temperature Temperature Source Pulse Rate 64 73 75 Pulse Rate [Left Radial] Respiratory Rate Blood Pressure 95/62 L 109/63 L 121/72 Blood Pressure [Right Arm] Blood Pressure Mean 70 Blood Pressure Mean [Right Arm] Blood Pressure Source [Right Arm] Blood Pressure Position [Right Arm] 02 Sat by Pulse Oximetry 98 97 Oxygen Delivery Method Room Air Room Air 05/29/24 12:45 05/29/24 13:00 05/29/24 13:15 Temperature Temperature Source Pulse Rate 74 76 76 Pulse Rate [Left Radial] Respiratory Rate Blood Pressure 118/73 117/72 134/82 Blood Pressure [Right Arm] Blood Pressure Mean 85 88 99 Blood Pressure Mean [Right Arm] Blood Pressure Source [Right Arm] Blood Pressure Position [Right Arm] 02 Sat by Pulse Oximetry 98 95 95 Oxygen Delivery Method Room Air Room Air Room Air 05/29/24 13:30 05/29/24 13:45 Temperature Temperature Source Pulse Rate 76 77 Pulse Rate [Left Radial] Respiratory Rate Blood Pressure 137/82 127/83 Blood Pressure [Right Arm] Blood Pressure Mean 104 Blood Pressure Mean [Right Arm] Blood Pressure Source [Right Arm] Blood Pressure Position [Right Arm] 02 Sat by Pulse Oximetry 96 97 Oxygen Delivery Method Room Air Room Air Lab Data Lab Results 05/29/24 10:57: WBC 12.1 H, RBC 4.72, Hgb 13.3 L, Hct 37.2 L, MCV 78.9 L, MCH 28.1, MCHC 35.7 H, RDW 15.5, Plt Count 350, MPV 7.3 L, Neut % (Auto) 77.8, Lymph % (Auto) 13.2, [place] % (Auto) 6.2, Eos % (Auto) 2.0, Baso % (Auto) 0.8, Neut # (Auto) 9.4 H, Lymph # (Auto) 1.6, [place] # (Auto) 0.8, Eos # (Auto) 0.2, Baso # (Auto) 0.1, Sodium 131 L, Potassium 3.8, Chloride 96 L, Carbon Dioxide 24, Anion Gap 14.8, BUN 19, Creatinine 1.80 H, Estimated Creat Clear 61, Estimated GFR 38 L, Est GFR ( Amer) 46 L, Glucose 186 H, Lactate 1.9, Calcium 9.0, Total Bilirubin 16.9 H*, Direct Bilirubin 14.9 H, AST 524 H*, ALT 290 H, Alkaline Phosphatase 1279 H, Ammonia < 9 L, Troponin I < 0.01, Total Protein 7.4, Albumin 3.6, Globulin 3.8 H, Albumin/Globulin Ratio 0.9 L, HIV 1&2 Antibody Rapid Nonreactive 05/29/24 14:31: Troponin I 0.01 05/29/24 10:57 05/29/24 10:57 Orders (Tests/Meds): ED MEDICATIONS Generic Name Dose Route Start Last Admin Trade Name Freq PRN Reason Stop Dose Admin Sodium Chloride 1,000 mls @ 999 mls/hr 05/29/24 15:14 Sod Chlor 0.9% 1000ml Bag IV 05/29/24 16:14 .Q1H1M ONE Miscellaneous 1 each 05/29/24 12:30 05/29/24 13:33 Vancomycin Consult Request NOTAPPLIC 06/28/24 12:[address] Administration Discontinued Medications Generic Name Dose Route Start Last Admin Trade Name Freq PRN Reason Stop Dose Admin Sodium Chloride 1,000 mls @ 999 mls/hr 05/29/24 11:15 05/29/24 11:19 Sod Chlor 0.9% 1000ml Bag IV 05/29/24 12:15 999 mls/hr .Q1H1M COURT Administration Piperacillin Sod/Tazobactam 50 mls @ 100 mls/hr 05/29/24 12:23 05/29/24 13:41 Sod 3.375 gm/ Sodium Chloride IV 05/29/24 12:52 100 mls/hr ONCE ONE Administration Vancomycin/PEG/NADA/Lysine/Water 1.75 gm in 350 mls @ 175 mls/hr 05/29/24 12:30 05/29/24 13:57 Vancomycin 1.75gm/350ml (Peg) Premix IV 05/29/24 14:29 175 mls/hr ONCE ONE Administration Iopamidol 75 ml 05/29/24 12:20 05/29/24 12:22 Iopamidol-370 (76%);100ml Bottle IV 05/29/24 12:21 75 ml ONCE ONE Administration Sodium Chloride 10 ml 05/29/24 12:20 05/29/24 12:21 Sodium Chloride 0.9% 10ml Syr (Rad Only) IV 05/29/24 12:21 10 ml ONCE ONE Administration ORDERS Category Date Time Status CT abdomen pelvis w con Stat Cat Scan 05/29/24 11:[address] head/brain wo con Stat Cat Scan 05/29/24 12:04 Completed Ammonia Stat Lab 05/29/24 10:57 Completed Bilirubin,Direct Stat Lab 05/29/24 10:57 Completed Complete Blood Count Auto Diff Stat Lab 05/29/24 10:57 Completed Comprehensive Metabolic Panel Stat Lab 05/29/24 10:57 Completed HIV (1&2) Antibody Rapid Stat Lab 05/29/24 10:57 Completed Hep C Ab with Reflex to RNA Stat Lab 05/29/24 11:10 Received Lactic Acid Stat Lab 05/29/24 10:57 Completed Lipase Stat Lab 05/29/24 15:24 Ordered Troponin I Q3H Lab 05/29/24 14:31 Completed Troponin I Q3H Lab 05/29/24 17:15 Ordered Troponin I Stat Lab 05/29/24 10:57 Completed Blood Culture Stat Micro 05/29/24 12:38 Received ECG Data Tracing #1: Independently interpreted by me rate of 71, rhythm is regular, no ST elevation in anatomical contiguous lead, QTc 449. Medical Decision Narrative: In summary patient is a 64-year-old male past medical history described above presents emergency department for evaluation of global weakness in the setting of pancreatic cancer not currently on chemotherapy pending further investigation. Patient is hemodynamically stable and nontoxic-appearing upon arrival, soft blood pressure, afebrile. Differential includes worsening malignancy, intra-abdominal abscess, urinary tract infection, worsening hyperbilirubinemia, among others. Workup will be conducted with hematologic labs, urinalysis, CT abdomen pelvis IV contrast. Initial inventions include crystalloid bolus. Blood cultures will be obtained and broad-spectrum antibiotics will be initiated. Initial workup reviewed by me, white blood cell count 12.1, ALEC creatinine 1.8, total bilirubin 16.9 with direct bilirubin 14.9 AST 524, ALT 290, initial troponin less than 0.01. There is worsening of the biliary ductal dilatation on CT abdomen pelvis and worsening of likely necrosis of the pancreatic head. Given his total bilirubin of 16.9 that is direct with significant fraction of that in the setting of tumor there is likely external compression of the common bile duct. There is a stent that is adjacent to the pancreatic body and a fluid collection in an adjacent to the pancreatic body with soft tissue to stranding. There is no evidence of bowel obstruction on CT scan and formal read. Given that patient has significant functional decline and has not eaten in a week in the setting of suspected abdominal malignancy with necrosis tertiary care evaluation is warranted. The case was discussed with [facility] regarding management patient be transferred to [facility] for continued evaluation at this time given that he requires multifactorial care. Total crystalloid resuscitation in the ER 2 L. Critical Care Critical Care Time Critical Care Time: Yes Attestation: On 05/29/24, the high probability of a clinically significant, sudden or life threatening deterioration of the following system(s) required my full and direct attention, intervention and personal management. The time I documented below is in addition to time spent performing reported procedures but includes the following listed in this critical care notation. Total Time Total Critical Care Time: 45
[2024-05-29] MEDS: SODIUM CHLORIDE 0.9% 10ML SYR (RAD ONLY) 10 ML IV (12:21)
[2024-05-29] MEDS: IOPAMIDOL-370 (76%);100ML BOTTLE 75 ML IV (12:22)
[2024-05-29 12:42] LABS: Bilirubin,Direct 14.9 mg/dl (0.0-0.4)
[2024-05-29] MEDS: VANCOMYCIN CONSULT REQUEST 1 EACH NOTAPPLIC (13:33)
[2024-05-29] MEDS: PIPERACILLIN/TAZO 3.375 GM in 0.9 % SODIUM CHLORIDE 50 ML IV (13:41)
[2024-05-29] MEDS: VANCOMYCIN/WATER FOR INJ (PEG) 1.75 GM/350 ML PIGGYBACK IV (13:57)
[2024-05-29 14:27] LABS: HIV (1&2) Antibody Rapid NONREACTIVE (NONREACTIVE)
--- NOTE | 2024-05-29 15:13 | PC.NURSE ---
Called [facility] per Dr. Palacios for transfer, stated they would give us a call back.
[2024-05-29 15:18] LABS: Troponin I 0.01 ng/ml (0.00-0.034)
[2024-05-29 15:42] LABS: Lipase 402 U/L (23-300)
--- NOTE | 2024-05-29 18:02 | PC.NURSE ---
report called to [facility] to Jaz SAUNDERS [phone]
[2024-05-30 08:51] LABS: HCV Ab Non Reactive (Non Reactive)
== END 2024-05-29 19:53 | disposition short-term general hospital (02) ==
PROVIDERS: Emergency Provider Emergency Medicine; PCP Family Medicine
DX: R74.01 Elevation of levels of liver transaminase levels (principal); E80.6 Other disorders of bilirubin metabolism; Q45.3 Other congenital malformations of pancreas and pancreatic duct; R53.1 Weakness; R63.8 Other symptoms and signs concerning food and fluid intake; R42 Dizziness and giddiness; R26.2 Difficulty in walking, not elsewhere classified
CPT/HCPCS: 70450; 74177; 80053; 82140; 82248; 83605; 83690; 84484; 85025; 86803; 87040; 87389; 93005; 96361; 96365; 96374; 99291; J2543; J7030; Q9967

== ENCOUNTER 2024-09-01 15:13 | Inpatient (IN) | payer MEDICARE, OTHER, SELFPAY ==
[2024-09-01] VITALS (12 sets, daily range): BP systolic 71–124; BP diastolic 47–76; PULSE 63–99; RESP 10–22; TEMP 36.4–36.7; O2SAT 90–100; BMI 26.4
--- NOTE | 2024-09-01 15:22 | ED_ITS ---
Discharge Plan Disposition Patient Disposition: Admitted Chief Complaint: Nausea/Vomiting/Diarrhea Prescriptions Prescriptions: No Action Reguloid (psyllium husk) 3 gram/5.4 gram powder PO atorvastatin 80 mg tablet 80 mg PO DAILY 90 Days Qty: 90 omeprazole 20 mg capsule,delayed release(DR/EC) 20 mg PO BID 90 Days Qty: 90 metoprolol tartrate 100 mg tablet 100 mg PO DAILY 90 Days Qty: 90 gabapentin 600 mg tablet 300 mg PO HS Qty: 30 2RF levothyroxine 25 mcg capsule 25 mcg PO DAILY Qty: 30 0RF magnesium oxide 420 mg tablet 420 mg PO DAILY sertraline 100 mg tablet 50 mg PO DAILY potassium chloride 10 mEq tablet extended release 10 meq PO TID losartan 100 mg tablet 100 mg PO DAILY fluticasone propionate 50 mcg/actuation spray,suspension 2 spray INTRANASAL DAILY metformin 500 mg tablet extended release 24 hr 1,000 mg PO BID loratadine 10 mg tablet 10 mg PO DAILY Jardiance 25 mg tablet 25 mg PO DAILY Referrals Follow up/Referrals: Olive Cooney APRN [Primary Care Provider] - See instructions Instructions Patient Instructions: DI for Diarrhea and Traveler's Diarrhea -- Adult, DI for Diarrhea and Traveler's Diarrhea -- Child, DI for Nausea -- Adult, DI for Nausea -- Child Print Language Print Language: Georgian Discharge ED Provider: Oralia Darling General Adult HPI General Chief complaint: Nausea/Vomiting/Diarrhea Stated complaint: Sent by [place] [facility] ? need for fluids Time Seen by Provider: 09/01/24 15:22 History of Present Illness HPI narrative: Patient is a 64-year-old with past medical history significant for recently diagnosed metastatic pancreatic adenocarcinoma, type 2 diabetes hypertension presents to the emergency department for 3 weeks of nausea and diarrhea. Patient has had over 6 episodes of loose stools for the last 3 weeks since last infusion. Has had 4 infusions of chemo. Over the last 2 days has had bright red blood in his stool. No fevers or chills. Has felt very weak since last chemoinfusion. Has also had nonproductive cough without hemoptysis. Was too weak and lack of transportation in order to get to his [facility] location today for infusion that was scheduled so [place] told him to come here for evaluation. Has had poor p.o. intake. Related Data Home Medications ?Medication ?Instructions ?Recorded ?Confirmed atorvastatin 80 mg tablet 80 mg PO DAILY 90 days ##90 01/27/18 02/16/24 metoprolol tartrate 100 mg tablet 100 mg PO DAILY 90 days ##90 01/27/18 02/16/24 omeprazole 20 mg capsule,delayed 20 mg PO BID 90 days ##90 01/27/18 02/16/24 release empagliflozin 25 mg tablet 25 mg PO DAILY 12/26/23 02/16/24 (Jardiance) fluticasone propionate 50 2 spray intranasal DAILY 12/26/23 02/16/24 mcg/actuation nasal spray,suspension loratadine 10 mg tablet 10 mg PO DAILY 12/26/23 02/16/24 losartan 100 mg tablet 100 mg PO DAILY 12/26/23 02/16/24 magnesium oxide 420 mg tablet 420 mg PO DAILY 12/26/23 02/16/24 metformin 500 mg tablet,extended 1,000 mg PO BID 12/26/23 02/16/24 release 24 hr potassium chloride 10 mEq 10 meq PO TID 12/26/23 02/16/24 tablet,extended release sertraline 100 mg tablet 50 mg PO DAILY 12/26/23 02/16/24 psyllium husk 3 gram/5.4 gram oral PO 01/05/24 02/16/24 powder (Reguloid (psyllium husk)) Previous Rx's ?Medication ?Instructions ?Recorded gabapentin 600 mg tablet 300 mg (1/2 x 600 mg) PO HS #30 02/16/24 tabs levothyroxine 25 mcg capsule 25 mcg PO DAILY #30 caps 02/21/24 Allergies Allergy/AdvReac Type Severity Reaction Status Date / Time No Known Allergies Allergy Verified 02/16/24 08:52 [facility] Disclaimer: The information contained in this section may have been updated after the patient was seen, as this information can be updated by other users. Medical History Exposure to COVID-19 virus Cholecystitis HLD (hyperlipidemia) HTN (hypertension) Back pain Diabetes Surgical History H/O hernia repair Previous back surgery Family History Other Arthritis Family history of cancer Family history of diabetes mellitus type II Heart disease Social History Smoking Status: Current every day smoker tobacco type: cigarettes packs per day: 1 alcohol intake: never counseling provided: none substance use type: denies use current occupational status: other Travel in the last 8 weeks: None housing: house Have you lived/traveled outside [place] in past 30 days?: No Contact w/someone who lives/traveled outside US past 30 days?: No Exposure to someone with infectious disease in past 14 days?: No Do you have a fever (greater than 100.4 F or 38 C)?: No Have you tested positive for COVID-19: No Exposed to someone with COVID-19 in past 14 days?: No Do you have a sore throat?: No Do you have a cough?: No Do you have any weakness?: No Do you have any diarrhea?: No Are you experiencing any unusual bleeding?: No Do you have any muscle aches/pain?: No Do you have any abdominal pain?: No Are you experiencing loss of taste or smell?: No Other Medical History Have you received the Flu Vaccine for this season: No Have you received the Pneumonia Vaccine: Yes ROS Obtained: Yes All systems reviewed & no additional complaints except as documented Physical Exam General General appearance: alert Comment: No acute distress Eye Eye exam: Present PERRL; Absent scleral icterus ENT ENT exam: Present mucous membranes dry Chest Chest inspection: Present normal inspection and symmetric chest wall rise Respiratory Respiratory exam: Present normal lung sounds bilaterally Cardiovascular Cardiovascular exam: Present regular rate; Absent tachycardia Abdominal Exam Abdominal exam: Present soft; Absent distention or tenderness Rectal Exam Rectal exam: Present bloody stool and tenderness; Absent mass comment: Purulent drainage with significant tenderness, no palpable masses Neurological Exam Neurological exam: Present alert and oriented X3 Skin Skin exam: Present dry Medical Decision Making Medical Records Screening: Per USPSTF and CDC recommendations, given the prevalence of disease in our region, it is our hospital?s policy to screen for HIV and viral Hepatitis for all patients aged 18 and over and those with ongoing risk factors. Ang Inquiry Pt receiving controlled substance: No Vital Signs: 09/01/24 15:18 09/01/24 15:53 09/01/24 16:30 Temperature 97.8 F Temperature Source Oral Pulse Rate 82 81 Pulse Rate [Radial] 99 H Respiratory Rate 18 15 Blood Pressure 90/62 L 83/50 L Blood Pressure [L Arm] 71/47 L Blood Pressure Mean Blood Pressure Mean [L Arm] 55 Blood Pressure Source [L Arm] Automatic Cuff Blood Pressure Position [L Arm] Sitting 02 Sat by Pulse Oximetry 99 98 100 Oxygen Delivery Method Room Air 09/01/24 16:45 09/01/24 17:15 09/01/24 17:30 Temperature Temperature Source Pulse Rate 82 63 82 Pulse Rate [Radial] Respiratory Rate 17 16 18 Blood Pressure 83/55 L 124/71 112/64 Blood Pressure [L Arm] Blood Pressure Mean 80 Blood Pressure Mean [L Arm] Blood Pressure Source [L Arm] Blood Pressure Position [L Arm] 02 Sat by Pulse Oximetry 96 90 L 100 Oxygen Delivery Method 09/01/24 17:45 09/01/24 18:00 09/01/24 18:15 Temperature Temperature Source Pulse Rate 83 75 Pulse Rate [Radial] Respiratory Rate 22 10 L 15 Blood Pressure 115/67 114/67 123/76 Blood Pressure [L Arm] Blood Pressure Mean 89 Blood Pressure Mean [L Arm] Blood Pressure Source [L Arm] Blood Pressure Position [L Arm] 02 Sat by Pulse Oximetry 100 96 Oxygen Delivery Method Lab Data Lab Results 09/01/24 15:48: WBC 20.5 H*, RBC 3.71 L, Hgb 10.0 L, Hct 31.2 L, MCV 84.1, MCH 27.0, MCHC 32.1, RDW 17.2, Plt Count 401, MPV 8.6, Neut % (Auto) 71.5, Lymph % (Auto) 17.1, [place] % (Auto) 10.0 H, Eos % (Auto) 0.2, Baso % (Auto) 0.3, Neut # (Auto) 14.6 H, Lymph # (Auto) 3.5, [place] # (Auto) 2.0 H, Eos # (Auto) 0.1, Baso # (Auto) 0.1, Total Counted 100, Neutrophils % (Manual) 75, Lymphocytes % (Manual) 16, Monocytes % (Manual) 9, Platelet Estimate Slight increase, Ovalocytes 1+, Aj Cells 1+, Schistocytes 1+, Sodium 135 L, Potassium 4.2, Chloride 108 H, C arbon Dioxide 18 L, Anion Gap 13.2, BUN 11, Creatinine 1.30 H, Estimated Creat Clear 69, Estimated GFR 55 L, Est GFR ( Amer) 67, Glucose 74, Calcium 8.9, Total Bilirubin 0.3, AST 30, ALT 20, Alkaline Phosphatase 143 H, Troponin I < 0.01, Total Protein 5.9 L, Albumin 3.0 L, Globulin 2.9, Albumin/Globulin Ratio 1.0 L, Procalcitonin 0.541, Blood Type O Positive, Antibody Screen Negative 09/01/24 16:00: Lipase 57 09/01/24 16:02: VBG pH 7.33, VBG pCO2 32.7 L, VBG pO2 38.8, VBG HCO3 16.9 L, VBG Total CO2 17.9 L, VBG O2 Saturation 72.4 H, VBG Base Excess -9.1 L, VBG Lactic Acid 2.0 09/01/24 16:20: Stl Aeromonas (PCR) Not detected, Stl C. cayetanensis PCR Not detected, Stool Rotavirus (PCR) Not detected, Stl Adenov F 40/41 PCR Not detected, Stool Astrovirus (PCR) Detected A, Stool Campylobacter PCR Not detected, Stl C.difficile Tox PCR Not detected, Stool Cryptosporidium PCR Not detected, Stl E.coli Shiga Tox PCR Not detected, Stool E coli O157 PCR Not detected, Stl Enterotoxigenic E PCR Not detected, Stool EPEC (PCR) Not detected, Stool EAEC (PCR) Not detected, Stl E. histolytica PCR Not detected, Stool Giardia Lamblia PCR Not detected, Stool Salmonella PCR Not detected, Stool Sapovirus (PCR) Not detected, Stl P. shigelloides PCR Not detected, Stl Shigella/EIEC PCR Not detected, St Y.enterocolitica PCR Not detected, Stool Vibrio (PCR) Not detected, Stl Vibrio cholerae PCR Not detected, Stl Norovirus GI/GII PCR Not detected 09/01/24 15:48 09/01/24 15:48 Orders (Tests/Meds): ED MEDICATIONS Generic Name Dose Route Start Last Admin Trade Name Freq PRN Reason Stop Dose Admin Cefepime HCl 2 gm/ Sodium 100 mls @ 200 mls/hr 09/01/24 16:00 09/01/24 16:15 Chloride IV 09/11/24 15:59 200 mls/hr Q8H COURT Administration Sodium Chloride 10 ml 09/01/24 15:34 Sodium Chloride 0.9% 10ml Flush Syringe IV 10/01/24 15:33 NEEDED PRN Maintain IV Site Discontinued Medications Generic Name Dose Route Start Last Admin Trade Name Freq PRN Reason Stop Dose Admin Lactated Ringer's 500 mls @ 999 mls/hr 09/01/24 15:34 09/01/24 16:06 Lactated Ringer's 1000 Ml Bag IV 09/01/24 16:04 999 mls/hr .Q31M ONE Administration Metronidazole 500 mg in 100 mls @ 100 mls/hr 09/01/24 16:54 09/01/24 17:04 Flagyl 500mg/100ml Ivpb IV 09/01/24 17:53 100 mls/hr ONCE ONE Administration Iopamidol 70 ml 09/01/24 17:14 09/01/24 17:15 Iopamidol-370 (76%);100ml Bottle IV 09/01/24 17:15 70 ml ONCE ONE Administration Ondansetron HCl 4 mg 09/01/24 16:10 09/01/24 16:18 Ondansetron 4mg/2ml Vial IV 09/01/24 16:11 4 mg ONCE ONE Administration Sodium Chloride 10 ml 09/01/24 17:14 09/01/24 17:15 Sodium Chloride 0.9% 10ml Syr (Rad Only) IV 09/01/24 17:15 10 ml ONCE ONE Administration Sodium Chloride 50 ml 09/01/24 17:14 09/01/24 17:15 0.9 % Sodium Chloride 50 Ml Vial IV 09/01/24 17:15 50 ml ONCE ONE Administration ORDERS Category Date Time Status Type and Screen Stat BBK 09/01/24 15:[address] abdomen pelvis w con Stat Cat Scan 09/01/24 15:[address] angio chest PE protocol Stat Cat Scan 09/01/24 15:[address] head/brain wo con Stat Cat Scan 09/01/24 15:57 Completed CXR --portable [XR chest portable] Stat Exams 09/01/24 15:34 Completed CBC w/Auto Diff [Complete Blood Count Auto Diff] Stat Lab 09/01/24 15:48 Completed CMP [Comprehensive Metabolic Panel] Stat Lab 09/01/24 15:48 Completed Diarrhea 23 Panel, PCR Stat Lab 09/01/24 16:20 Completed Lactate Venous Stat Lab 09/01/24 16:00 Ordered Lipase Stat Lab 09/01/24 16:00 Completed Procalcitonin Stat Lab 09/01/24 15:48 Completed Trop I [Troponin I] Stat Lab 09/01/24 15:48 Completed Troponin I Q3H Lab 09/01/24 18:45 Ordered Troponin I Q3H Lab 09/01/24 21:45 Ordered Urinalysis and Microscopic Stat Lab 09/01/24 15:34 Ordered Blood Culture Stat Micro 09/01/24 16:00 Received VBG [Venous Blood Gas] Stat RT 09/01/24 16:02 Completed Medical Decision Narrative: In summary, this 63-year-old male presents to the emergency department today with diarrhea and weakness. On initial evaluation patient is hypotensive normal heart rate however patient is on beta-blockers which could be blunting tachycardia. Differential diagnosis includes but is not limited to abdominal infection including diverticulitis intra-abdominal abscess perirectal abscess, chemo side effect, infectious diarrhea, dehydration HHS DKA neutropenic fever, metastatic disease. Based on these concerns, I ordered CBC CMP Pro-Mati, lipase troponin, chest x-ray VBG lactate type and screen UA EKG, CT head CT PE CT abdomen pelvis with IV contrast. Initiated fluid bolus in the setting of hypotension and cefepime due to concern of purulent drainage on digital rectal exam. ECG personally interpreted demonstrates normal sinus rhythm no acute ST elevation T wave inversions or ST depressions concerning for ischemia Patient received cefepime Flagyl and Zofran and 1 L of LR for treatment. Labs personally reviewed demonstrate leukocytosis, bicarb of 16, hemoglobin of 10, cr 1.3 XR personally interpreted demonstrates no focal opacities or effusions. right hilar LAD. CT imaging personally interpreted demonstrate stranding of colon. I had an interactive discussion with hospital medicine recommendations to admit to their service for continued treatment of dehydration On reassessment improvement in blood pressure and able to tolerate p.o. Patient admitted to hospital medicine for further management of dehydration and chemotherapy related colitis Critical Care Critical Care Time Critical Care Time: Yes Attestation: On 09/01/24, the high probability of a clinically significant, sudden or life threatening deterioration of the following system(s) required my full and direct attention, intervention and personal management. The time I documented below is in addition to time spent performing reported procedures but includes the following listed in this critical care notation. Total Time Total Critical Care Time: 30
--- NOTE | 2024-09-01 15:30 | PC.NURSE ---
PT to RM9 from triage. ASSESSMENT pt states he has had rectal pain that is 8/10 over the last week. pt states he has also had bright red bleeding from his rectum when he wipes and minimally in the toilet. pt also reports nausea. Over this time he states he has been lightheaded. He reports falling due to weakness 4x last week. NO LOC. [facility] is hypotensive on arrival. pt is receiving IV chemo infusions for pancreatic cancer. These began about 2mo ago. [facility].
--- NOTE | 2024-09-01 15:34 | XR_ITS ---
PROCEDURE INFORMATION: Exam: XR Chest Exam date and time: 09/01/2024 4:51 PM Age: 64 years old Clinical indication: Cough; Additional info: Cp TECHNIQUE: Imaging protocol: Radiologic exam of the chest. Views: 1 view. COMPARISON: CR XR CHEST PORTABLE 12/25/2023 12:51 PM FINDINGS: Tubes, catheters and devices: Left IJ MediPort catheter tip is flipped back up into the right IJ. Lungs: Unremarkable. No consolidation. Pleural spaces: Unremarkable. No pleural effusion. No pneumothorax. Heart/Mediastinum: Unremarkable. No cardiomegaly. Bones/joints: Unremarkable. IMPRESSION: Left IJ MediPort catheter tip is flipped back up into the right IJ.
--- NOTE | 2024-09-01 15:50 | PC.NURSE ---
Dr. Darling at bedside, this RN also at bedside for rectal exam.
--- NOTE | 2024-09-01 15:51 | PC.NURSE ---
glucose 204
--- NOTE | 2024-09-01 15:57 | CT_ITS ---
PROCEDURE INFORMATION: Exam: CTA Chest With Contrast Exam date and time: 09/01/2024 5:03 PM Age: 64 years old Clinical indication: Other: Metastatic disease BUDDY esquivel TECHNIQUE: Imaging protocol: Computed tomographic angiography of the chest with contrast. Exam focused on the arteries. 3D rendering (Not supervised by radiologist): MIP and/or 3D reconstructed images were created by the technologist. Radiation optimization: All CT scans at this facility use at least one of these dose optimization techniques: automated exposure control; mA and/or kV adjustment per patient size (includes targeted exams where dose is matched to clinical indication); or iterative reconstruction. Contrast material: ISOVUE; Contrast volume: 70 ml; Contrast route: INTRAVENOUS (IV); COMPARISON: CR XR CHEST PORTABLE 09/01/2024 4:51 PM FINDINGS: Pulmonary arteries: Normal. No pulmonary emboli. Aorta: Unremarkable. No aortic aneurysm. No aortic dissection. Lungs: Unremarkable. No consolidation. No masses. Pleural spaces: Unremarkable. No pneumothorax. No pleural effusion. Heart: Unremarkable. No cardiomegaly. No pericardial effusion. Lymph nodes: Unremarkable. No enlarged lymph nodes. Gallbladder and biliary ducts: Pneumobilia. Common bile duct metallic stent in place. Cholecystectomy. Stomach: Cyst gastrostomy drain in place. Bones/joints: Unremarkable. No acute fracture. Soft tissues: Unremarkable. IMPRESSION: No CT evidence of metastatic disease.
--- NOTE | 2024-09-01 15:57 | CT_ITS ---
PROCEDURE INFORMATION: Exam: CT Head Without Contrast Exam date and time: 09/01/2024 4:59 PM Age: 64 years old Clinical indication: Altered mental status/memory loss; Additional info: Metastatic disease BUDDY esquivel TECHNIQUE: Imaging protocol: Computed tomography of the head without contrast. Radiation optimization: All CT scans at this facility use at least one of these dose optimization techniques: automated exposure control; mA and/or kV adjustment per patient size (includes targeted exams where dose is matched to clinical indication); or iterative reconstruction. COMPARISON: CT HEAD/BRAIN WO CON 05/29/2024 12:17 PM FINDINGS: Brain: Age-related volume loss. Mild decreased attenuation of the supratentorial white matter is likely secondary to chronic microvascular ischemia. No acute intracranial hemorrhage, midline shift or significant intracranial mass effect. No cerebral edema. Cerebral ventricles: No obstructive hydrocephalus. Paranasal sinuses: Nonspecific fluid within the [id number]-left maxillary sinuses. Mild scattered additional paranasal sinus disease. Mastoid air cells: Visualized mastoid air cells are well aerated. Bones: Unremarkable. No acute fracture. Soft tissues: Unremarkable. IMPRESSION: No acute intracranial abnormality.
--- NOTE | 2024-09-01 15:57 | CT_ITS ---
PROCEDURE INFORMATION: Exam: CT Abdomen And Pelvis With Contrast Exam date and time: 09/01/2024 5:03 PM Age: 64 years old Clinical indication: Other: Bloody diarrhea TECHNIQUE: Imaging protocol: Computed tomography of the abdomen and pelvis with contrast. 3D rendering (Not supervised by radiologist): MIP and/or 3D reconstructed images were created by the technologist. Radiation optimization: All CT scans at this facility use at least one of these dose optimization techniques: automated exposure control; mA and/or kV adjustment per patient size (includes targeted exams where dose is matched to clinical indication); or iterative reconstruction. Contrast material: ISOVUE; Contrast volume: 70 ml; Contrast route: IV; COMPARISON: CT ABDOMEN PELVIS W CON 05/29/2024 12:19 PM FINDINGS: Tubes, catheters and devices: None noted. Lungs: Lung bases appear clear. Heart: No significant coronary calcifications. No cardiomegaly. No significant pericardial effusion. Liver: Fatty liver. No mass. Gallbladder and biliary ducts: Pneumobilia. No calcified stones. Metallic stent in the common duct. Pancreas: Cyst gastrostomy. No ductal dilation. Spleen: Normal. No splenomegaly. Adrenal glands: Normal. No mass. Kidneys and ureters: Normal. No hydronephrosis. Stomach and bowel: Pancolitis. No obstruction. No mucosal thickening. Appendix: No evidence of appendicitis. Intraperitoneal space: Unremarkable. No free air. No significant fluid collection. Retroperitoneal space: No significant retroperitoneal inflammatory changes are noted. Vasculature: Unremarkable. No abdominal aortic aneurysm. Lymph nodes: Unremarkable. No enlarged lymph nodes. Urinary bladder: Unremarkable as visualized. Reproductive: Unremarkable as visualized. Bones/joints: Vacuum disc at all inter lumbar levels except L3-L4. No acute fracture. Soft tissues: Unremarkable. IMPRESSION: 1. Fatty liver. 2. Pancolitis. 3. Cyst gastrostomy with metallic stent in the common bile duct. 4. Vacuum discs in the lumbar spine.
--- NOTE | 2024-09-01 16:05 | PC.NURSE ---
RT aware of VBG order and blood in lab
[2024-09-01] MEDS: LACTATED RINGERS 1000ML 500 ML 999 ML IV (16:06)
[2024-09-01 16:07] LABS: Basophils # 0.1 K/mm3 (0-0.2); Basophils % 0.3 % (0.1-2.0); Eosinophils # 0.1 K/mm3 (0.0-0.4); Eosinophils % 0.2 % (0.1-12.0); Hematocrit 31.2 % (42.0-52.0); Lymphocytes # 3.5 K/mm3 (0.7-4.5); Lymphocytes % 17.1 % (10-50); Mean Corpuscular HGB Conc 32.1 g/dL (31.8-35.4); Mean Corpuscular Volume 84.1 fl (80-94); Mean Platelet Volume 8.6 fl (7.4-10.4); Neutrophils # 14.6 K/mm3 (1.8-7.8); Neutrophils % 71.5 % (37.0-80.0); Platelet Count 401 K/mm3 (142-424); Red Blood Count 3.71 M/mm3 (4.60-6.20); Red Cell Distribution Width 17.2 % (11.5-17.5); White Blood Count 20.5 K/mm3 (4.8-10.8)
[2024-09-01 16:08] LABS: MANUAL DIFFERENTIAL MANUAL DIFFERENTIAL (MANUAL DIFF)
[2024-09-01 16:09] LABS: VBG Base Excess -9.1 mmol/L (-2.4-2.3); VBG HCO3 16.9 mmol/L (23-30); VBG Oxygen Saturation 72.4 % (50-70); VBG PCO2 32.7 mmol/L (35-51); VBG PH 7.33 mmol/L (7.31-7.41); VBG PO2 38.8 mmol/L (28-40); VBG Total CO2 17.9 mmol/L (23-27)
[2024-09-01] MEDS: CEFEPIME HCL 2 GM in 0.9 % SODIUM CHLORIDE 100 ML IV (16:15)
[2024-09-01 16:16] LABS: Lymphocytes % 16 % (10-50); Monocytes % 9 % (2-9); Neutrophils % 75 % (42-76); Total Cells Counted 100
[2024-09-01 16:17] LABS: Burr Cells 1+; Ovalocytes 1+; Platelet Estimate Slight Increase; Schistocytes 1+
[2024-09-01] MEDS: ONDANSETRON 4MG/2ML VIAL 4 MG IV (16:18)
[2024-09-01 16:20] LABS: Chloride 108 mmol/L (98-107)
[2024-09-01 16:21] LABS: Potassium 4.2 mmoL/L (3.5-5.1); Sodium 135 mmol/L (136-145)
[2024-09-01 16:23] LABS: Alanine Aminotransferase 20 U/L (12-78); Alkaline Phosphatase 143 U/L (38-126); Anion Gap 13.2 mEq/L (5-15); Aspartate Amino Transferase 30 U/L (17-59); Bilirubin,Total 0.3 mg/dl (0.2-1.3); Blood Urea Nitrogen 11 mg/dl (9-20); Carbon Dioxide 18 mmol/L (22.0-30.0); Creatinine Clearance Estimated 69 mL/min (50-200); Estimated Glomerular Filt Rate 55 ml/min (>60); GFR (African American) 67 ML/MIN (>60); Globulin 2.9 g/dL (1.3-3.2); Total Protein,Serum 5.9 g/dl (6.3-8.2)
[2024-09-01 16:24] LABS: Calcium 8.9 mg/dl (8.4-10.2); Glucose 74 mg/dl (74-100)
[2024-09-01 16:26] LABS: Adenovirus F 40/41, stool Not Detected (NotDetected); Campylobacter Not Detected (NotDetected); Clostridium Difficile A/B, PCR Not Detected (NotDetected); Cryptosporidium Not Detected (NotDetected); Cyclospora Cayetanesis Not Detected (NotDetected); Entamoeba histolytica Not Detected (NotDetected); Enteroaggregative E coli Not Detected (NotDetected); Enteropathogenic E coli Not Detected (NotDetected); Enterotoxigenic E coli Not Detected (NotDetected); Giardia lamblia Not Detected (NotDetected); Norovirus Not Detected (NotDetected); Plesimonas Shigalloides, PCR Not Detected (NotDetected); Rotavirus A Not Detected (NotDetected); Salmonella, PCR Not Detected (NotDetected); Sapovirus Not Detected (NotDetected); Shiga-like toxin E coli Not Detected (NotDetected); Shigella Enterovasive E coli Not Detected (NotDetected); Vibrio Cholerae Not Detected (NotDetected); Vibrio, PCR Not Detected (NotDetected); Yersinia Entercolitica, PCR Not Detected (NotDetected)
[2024-09-01 16:28] LABS: Lipase 57 U/L (23-300)
[2024-09-01 16:36] LABS: Troponin I < 0.01 ng/ml (0.00-0.034)
--- NOTE | 2024-09-01 16:43 | ECG_ITS ---
APPROVED REPORT Exam: Resting ECG HR:79 bpm ECG Measurements Heart Rate 79 AXES UT 172 P 45 QRSd 94 QRS -13 QT 387 T 41 QTc 421 Conclusion SINUS RHYTHM NORMAL ECG Electronically signed by : BABS RUSSO, 09/03/2024 16:58:12
[2024-09-01 17:02] LABS: Procalcitonin 0.541 ng/mL (0.0-2.0)
[2024-09-01] MEDS: METRONIDAZ/SOD CHL 500 MG/100 ML PIGGYBACK 100 MG IV (17:04)
[2024-09-01] MEDS: 0.9 % SODIUM CHLORIDE 50 ML VIAL IV (17:15)
[2024-09-01] MEDS: SODIUM CHLORIDE 0.9% 10ML SYR (RAD ONLY) 10 ML IV (17:15)
[2024-09-01] MEDS: IOPAMIDOL-370 (76%);100ML BOTTLE 70 ML IV (17:15)
--- NOTE | 2024-09-01 17:40 | PC.NURSE ---
I rounded on the pt. no new complaints at this time. no needs voiced. call brewer in reach.
--- NOTE | 2024-09-01 18:09 | PC.NURSE ---
I spoke with the pt regarding admission. He states [facility], he [facility] and [facility]. pt has no new complaints. no needs voiced. call brewer in reach.
[2024-09-01 18:21] LABS: Astrovirus Detected (NotDetected)
--- NOTE | 2024-09-01 18:28 | PC.NURSE ---
I notified [facility] of the need for an admission bed.
--- NOTE | 2024-09-01 18:41 | PC.NURSE ---
I called report to Megan SAUNDERS
--- NOTE | 2024-09-01 18:50 | PC.NURSE ---
arrived by w/c from ED
--- NOTE | 2024-09-01 18:55 | PC.NURSE ---
pt unable to recall what medications he takes. at bedside also states that she is unsure. asked pt to bring in home meds.
[2024-09-01 19:41] LABS: Troponin I < 0.01 ng/ml (0.00-0.034)
[2024-09-01] MEDS: LACTATED RINGERS 1000ML 1,000 ML 75 ML IV (20:53)
[2024-09-01 21:04] LABS: Coronavirus 19, PCR Not Detected (NotDetected); Influenza A, PCR Not Detected (NotDetected); Influenza B, PCR Not Detected (NotDetected)
[2024-09-01 21:05] LABS: POC Glucose,Bedside 62 (70-110)
[2024-09-01] MEDS: HYDROCODONE/APAP 5/325 MG TABLET 1 TAB PO (21:07)
--- NOTE | 2024-09-01 21:11 | P.HP_ITS ---
<Statement entered by Gennaro Powell MD - 09/05/24 14:22> I personally examined the patient and agree with the plan of care outlined by the GRAPHIC [employer] INSTRUCTOR. History of Present Illness *Admission Date: 09/01/24 *Reason for visit:: Nausea and diarrhea *History of present illness: This is a 64-year-old male with a past medical history of metastatic pancreatic adenocarcinoma, T2DM, hypertension who presents the emergency department today with complaints of 3 weeks of nausea and diarrhea. He reports being on chemo infusions for pancreatic adenocarcinoma. States that he has chemo treatments approximately every 3 weeks. He was supposed to have treatment last week but st ated that he was too sick for this. States that he has had nausea and diarrhea for several weeks. Does endorse sick contacts at home with grandkids having influenza. He reports nonproductive cough without hemoptysis. Denies fever or chills. He stated that he was too sick to get to [facility] today so they told him to seek treatment in his local emergency department. He was noted to be hypotensive on arrival with systolic blood pressures in the 70s with improvement after IV fluids. Leukocytosis with a white count of 20, creatinine of 1.3, troponin negative x 2, lipase negative, procalcitonin 0.54 stool sample sent and positive for astrovirus. CTA chest abdomen pelvis obtained and notable for pancolitis, metallic stent in the common bile duct that is known from previous surgery. Chest imaging negative. Given his workup, he was treated with broad-spectrum antibiotics and IV fluids and admitted to the hospitalist service. [facility] Disclaimer: The information contained in this section may have been updated after the patient was seen, as this information can be updated by other users. Medical History Exposure to COVID-19 virus Cholecystitis HLD (hyperlipidemia) HTN (hypertension) Back pain Diabetes Surgical History H/O hernia repair Previous back surgery Family History Other Arthritis Family history of cancer Family history of diabetes mellitus type II Heart disease Social History Smoking Status: Current every day smoker tobacco type: cigarettes packs per day: 1 alcohol intake: never counseling provided: none substance use type: denies use current occupational status: other Travel in the last 8 weeks: None housing: house Have you lived/traveled outside [place] in past 30 days?: No Contact w/someone who lives/traveled outside US past 30 days?: No Exposure to someone with infectious disease in past 14 days?: No Do you have a fever (greater than 100.4 F or 38 C)?: No Have you tested positive for COVID-19: No Exposed to someone with COVID-19 in past 14 days?: No Do you have a sore throat?: No Do you have a cough?: No Do you have any weakness?: No Do you have any diarrhea?: No Are you experiencing any unusual bleeding?: No Do you have any muscle aches/pain?: No Do you have any abdominal pain?: No Are you experiencing loss of taste or smell?: No Other Medical History Have you received the Flu Vaccine for this season: No Have you received the Pneumonia Vaccine: No Review of Systems Review of Systems Review of systems:: other and pertinent systems reviewed and negative unless documented below Review of systems (narrative): Negative except for HPI Meds Home Medications and Allergies Home Medications ?Medication ?Instructions ?Recorded ?Confirmed ?Type atorvastatin 80 mg tablet 80 mg PO DAILY 90 days ##90 01/27/18 02/16/24 History metoprolol tartrate 100 mg tablet 100 mg PO DAILY 90 days ##90 01/27/18 02/16/24 History omeprazole 20 mg capsule,delayed 20 mg PO BID 90 days ##90 01/27/18 02/16/24 History release empagliflozin 25 mg tablet 25 mg PO DAILY 12/26/23 02/16/24 History (Jardiance) fluticasone propionate 50 2 spray intranasal DAILY 12/26/23 02/16/24 History mcg/actuation nasal spray,suspension loratadine 10 mg tablet 10 mg PO DAILY 12/26/23 02/16/24 History losartan 100 mg tablet 100 mg PO DAILY 12/26/23 02/16/24 History magnesium oxide 420 mg tablet 420 mg PO DAILY 12/26/23 02/16/24 History metformin 500 mg tablet,extended 1,000 mg PO BID 12/26/23 02/16/24 History release 24 hr potassium chloride 10 mEq 10 meq PO TID 12/26/23 02/16/24 History tablet,extended release sertraline 100 mg tablet 50 mg PO DAILY 12/26/23 02/16/24 History psyllium husk 3 gram/5.4 gram oral PO 01/05/24 02/16/24 History powder (Reguloid (psyllium husk)) gabapentin 600 mg tablet 300 mg (1/2 x 600 mg) PO HS #30 02/16/24 02/16/24 Rx tabs levothyroxine 25 mcg capsule 25 mcg PO DAILY #30 caps 02/21/24 Rx New Prescriptions to Start Prescriptions: Allergies Allergy/AdvReac Type Severity Reaction Status Date / Time No Known Allergies Allergy Verified 02/16/24 08:52 Exam Data for Last 24 hours Vital signs and Labs for Last 24 Hours: Temp Pulse Resp BP Pulse Ox O2 Del Method 97.5 F L 87 18 103/53 L 98 Room Air 09/01/24 19:39 09/01/24 19:39 09/01/24 19:39 09/01/24 19:39 09/01/24 19:39 09/01/24 19:39 Laboratory Results - last 24 hr 09/01/24 15:48: WBC 20.5 H*, RBC 3.71 L, Hgb 10.0 L, Hct 31.2 L, MCV 84.1, MCH 27.0, MCHC 32.1, RDW 17.2, Plt Count 401, MPV 8.6, Neut % (Auto) 71.5, Lymph % (Auto) 17.1, [place] % (Auto) 10.0 H, Eos % (Auto) 0.2, Baso % (Auto) 0.3, Neut # (Auto) 14.6 H, Lymph # (Auto) 3.5, [place] # (Auto) 2.0 H, Eos # (Auto) 0.1, Baso # (Auto) 0.1, Total Counted 100, Neutrophils % (Manual) 75, Lymphocytes % (Manual) 16, Monocytes % (Manual) 9, Platelet Estimate Slight increase, Ovalocytes 1+, [place] Cells 1+, Schistocytes 1+, Sodium 135 L, Potassium 4.2, Chloride 108 H, Carbon Dioxide 18 L, Anion Gap 13.2, BUN 11, Creatinine 1.30 H, Estimated Creat Clear 69, Estimated GFR 55 L, Est GFR ( Amer) 67, Glucose 74, Calcium 8.9, Total Bilirubin 0.3, AST 30, ALT 20, Alkaline Phosphatase 143 H, Troponin I < 0.01, Total Protein 5.9 L, Albumin 3.0 L, Globulin 2.9, Albumin/Globulin Ratio 1.0 L, Procalcitonin 0.541, Blood Type O Positive, Antibody Screen Negative 09/01/24 16:00: Lipase 57 09/01/24 16:02: VBG pH 7.33, VBG pCO2 32.7 L, VBG pO2 38.8, VBG HCO3 16.9 L, VBG Total CO2 17.9 L, VBG O2 Saturation 72.4 H, VBG Base Excess -9.1 L, VBG Lactic Acid 2.0 09/01/24 16:20: Stl Aeromonas (PCR) Not detected, Stl C. cayetanensis PCR Not detected, Stool Rotavirus (PCR) Not detected, Stl Adenov F 40/41 PCR Not detected, Stool Astrovirus (PCR) Detected A, Stool Campylobacter PCR Not detected, Stl C.difficile Tox PCR Not detected, Stool Cryptosporidium PCR Not detected, Stl E.coli Shiga Tox PCR Not detected, Stool E coli O157 PCR Not detected, Stl Enterotoxigenic E PCR Not detected, Stool EPEC (PCR) Not detected, Stool EAEC (PCR) Not detected, Stl E. histolytica PCR Not detected, Stool Giardia Lamblia PCR Not detected, Stool Salmonella PCR Not detected, Stool Sapovirus (PCR) Not detected, Stl P. shigelloides PCR Not detected, Stl Shigella/EIEC PCR Not detected, St Y.enterocolitica PCR Not detected, Stool Vibrio (PCR) Not detected, Stl Vibrio cholerae PCR Not detected, Stl Norovirus GI/GII PCR Not detected 09/01/24 19:02: Troponin I < 0.01 09/01/24 20:50: POC Glucose 62 L I & O for Last 24 hours: Intake & Output 08/29/24 08/30/24 08/31/24 09/01/24 23:59 23:59 23:59 23:59 Weight 86.183 kg Constitutional Constitutional: no acute distress *Routine HEENT Exam Head: Present normocephalic Eye: Present EOMI and PERRL ENT: Present mucous membranes moist *Routine Neck Exam Neck: Present supple; Absent lymphadenopathy *Routine Respiratory Exam Respiratory: Present CTA bilaterally *Routine Cardiovascular Exam Cardiovascular: Present RRR *Routine Abdominal Exam Abdominal: Present soft and normoactive bowel sounds; Absent tenderness *Routine Rectal Exam Rectal:: deferred *Routine Genitalia Exam Genitalia:: deferred *Routine Extremities Exam Extremities: Absent cyanosis, clubbing or edema *Routine Skin Exam Skin: Present warm; Absent rash *Routine Neurological Exam Neurological: Present alert and oriented X3 Assessment and Plan *Assessment and plan (1) Sepsis: Status: Acute Qualifiers: Sepsis type: sepsis due to unspecified organism Sepsis acute organ dysfunction status: with acute organ dysfunction Severe sepsis acute organ dysfunction type: acute renal failure Acute renal failure type: unspecified Severe sepsis shock status: without septic shock Qualified Code(s): A41.9 - Sepsis, unspecified organism; R65.20 - Severe sepsis without septic shock; N17.9 - Acute kidney failure, unspecified Category: Medical Code(s): A41.9 - Sepsis, unspecified organism (2) Pancolitis: Status: Acute Category: Medical Code(s): K51.00 - Ulcerative (chronic) pancolitis without complications (3) Diarrhea: Status: Acute Qualifiers: Diarrhea type: infectious Qualified Code(s): A09 - Infectious gastr oenteritis and colitis, unspecified Category: Medical Code(s): R19.7 - Diarrhea, unspecified (4) ALEC (acute kidney injury): Status: Acute Category: Medical Code(s): N17.9 - Acute kidney failure, unspecified (5) HLD (hyperlipidemia): Status: Acute Qualifiers: Hyperlipidemia type: unspecified Qualified Code(s): E78.5 - Hyperlipidemia, unspecified Category: Medical Code(s): E78.5 - Hyperlipidemia, unspecified (6) HTN (hypertension): Status: Acute Qualifiers: Hypertension type: primary hypertension Qualified Code(s): I10 - Essential (primary) hypertension Category: Medical Code(s): I10 - Essential (primary) hypertension Plan #Sepsis with acute organ dysfunction Meets criteria for leukocytosis and hypotension. Received 30 mg/kg bolus and now improved. Normotensive at this time. Infection source: Infectious diarrhea/pancolitis Blood cultures obtained, follow-up results Lactic acid negative Renal function elevated with a creatinine of 1.3 Continue broad-spectrum antibiotic coverage #Pancolitis #Diarrheal illness Gastro path panel positive for astrovirus. Pancolitis noted on CT imaging. Given leukocytosis and septic like presentation, will continue Zosyn for broad- spectrum coverage Continue diet as tolerated will initiate clear liquids and advance #ALEC Creatinine of 1.3 with a baseline around 0.5 Continue maintenance IV fluids Monitor intake and output #T2DM Noted to be hypoglycemic on arrival to the floor with glucose of 62. D50 given as well as oral intake Monitor glucose closely Before meals and at bedtime Accu-Cheks and sliding scale insulin when appropriate #HTN Hold antihypertensives at this time given relative hypotension on arrival #HLD Continue home medications #Pancreatic adenocarcinoma [facility] States that he is unable to tolerate chemo at this time but has not ruled out further chemo in the future. [facility] states that he felt to poorly to make that trip. Requested to stay locally for acute treatment
[2024-09-01] MEDS: PIPERACILLIN/TAZO 3.375 GM in 0.9 % SODIUM CHLORIDE 50 ML IV (21:29)
[2024-09-01] MEDS: DEXTROSE 50% 50ML SYRINGE (CRASH CART) 25 ML IVP (21:29)
[2024-09-01 22:13] LABS: Troponin I < 0.01 ng/ml (0.00-0.034)
[2024-09-02] VITALS (9 sets, daily range): BP systolic 95–128; BP diastolic 52–74; PULSE 70–90; RESP 16–20; TEMP 36.4–36.7; O2SAT 98–100; BMI 28.1
[2024-09-02] MEDS: CEFEPIME HCL 2 GM in 0.9 % SODIUM CHLORIDE 100 ML IV ×4 (01:19→23:50)
--- NOTE | 2024-09-02 04:40 | PC.NURSE ---
Pt A&OX4 and has tolerated room air. Lung sounds clear and bowel sounds active. He has complained of back pain 2 times this shift and was medicated per MAR. He has received IV abx. He has remained NSR on tele. No complaints at this time, call light within reach.
[2024-09-02] MEDS: PIPERACILLIN/TAZO 3.375 GM in 0.9 % SODIUM CHLORIDE 50 ML IV ×3 (06:20→20:51)
[2024-09-02 06:37] LABS: POC Glucose,Bedside 87 (70-110)
[2024-09-02 07:03] LABS: Basophils # 0.1 K/mm3 (0-0.2); Basophils % 0.5 % (0.1-2.0); Eosinophils # 0.1 K/mm3 (0.0-0.4); Eosinophils % 0.6 % (0.1-12.0); Hematocrit 29.4 % (42.0-52.0); Hemoglobin 9.3 g/dL (14.1-18.0); Lymphocytes % 23.4 % (10-50); Mean Corpuscular HGB Conc 31.6 g/dL (31.8-35.4); Mean Corpuscular Hemoglobin 26.6 pg (27.0-31.2); Mean Platelet Volume 8.5 fl (7.4-10.4); Monocytes # 1.7 K/mm3 (0.1-1.0); Monocytes % 9.8 % (1.7-9.3); Neutrophils % 64.9 % (37.0-80.0); Platelet Count 376 K/mm3 (142-424); Red Cell Distribution Width 17.2 % (11.5-17.5); White Blood Count 16.9 K/mm3 (4.8-10.8)
[2024-09-02 07:06] LABS: Chloride 109 mmol/L (98-107)
[2024-09-02 07:07] LABS: Sodium 136 mmol/L (136-145)
[2024-09-02 07:09] LABS: Blood Urea Nitrogen 11 mg/dl (9-20); Creatinine Clearance Estimated 73 mL/min (50-200); Estimated Glomerular Filt Rate 55 ml/min (>60); GFR (African American) 67 ML/MIN (>60)
[2024-09-02 07:10] LABS: Calcium 8.8 mg/dl (8.4-10.2); Carbon Dioxide 19 mmol/L (22.0-30.0); Glucose 66 mg/dl (74-100)
[2024-09-02 07:21] LABS: MANUAL DIFFERENTIAL MANUAL DIFFERENTIAL (MANUAL DIFF)
[2024-09-02 08:11] LABS: Lymphocytes % 21 % (10-50); Monocytes % 10 % (2-9); Neutrophils % 69 % (42-76); Platelet Estimate Normal; RBC Morphology Normal; Total Cells Counted 100
[2024-09-02] MEDS: LACTATED RINGERS 1000ML 1,000 ML 75 ML IV ×2 (09:30→21:30)
[2024-09-02] MEDS: HYDROCODONE/APAP 5/325 MG TABLET 1 TAB PO ×2 (09:34→21:32)
--- NOTE | 2024-09-02 17:05 | P.PN_ITS ---
Subjective *Date: 09/02/24 *Time: 17:05 Interval history: Patient feeling much better today, tolerating diet well. Nausea/vomiting/diarrhea resolved. Will treat with 1 more day of Zosyn for anticipate discharge tomorrow. Exam Data for Last 24 hours Vital signs and Labs for Last 24 Hours: Temp Pulse Resp BP Pulse Ox O2 Del Method 97.9 F 80 18 116/73 100 Room Air 09/02/24 16:00 09/02/24 16:09 09/02/24 16:00 09/02/24 16:00 09/02/24 16:00 09/02/24 16:00 Laboratory Results - last 24 hr 09/01/24 15:48: Procalcitonin 0.541 09/01/24 16:20: Stl Aeromonas (PCR) Not detected, Stl C. cayetanensis PCR Not detected, Stool Rotavirus (PCR) Not detected, Stl Adenov F 40/41 PCR Not detected, Stool Astrovirus (PCR) Detected A, Stool Campylobacter PCR Not detected, Stl C.difficile Tox PCR Not detected, Stool Cryptosporidium PCR Not detected, Stl E.coli Shiga Tox PCR Not detected, Stool E coli O157 PCR Not detected, Stl Enterotoxigenic E PCR Not detected, Stool EPEC (PCR) Not detected, Stool EAEC (PCR) Not detected, Stl E. histolytica PCR Not detected, Stool Giardia Lamblia PCR Not detected, Stool Salmonella PCR Not detected, Stool Sapovirus (PCR) Not detected, Stl P. shigelloides PCR Not detected, Stl Shigella/EIEC PCR Not detected, St Y.enterocolitica PCR Not detected, Stool Vibrio (PCR) Not detected, Stl Vibrio cholerae PCR Not detected, Stl Norovirus GI/GII PCR Not detected 09/01/24 19:02: Troponin I < 0.01 09/01/24 20:50: POC Glucose 62 L 09/01/24 21:00: SARS-CoV-2 (PCR) Not detected, Influenza A Untype (PCR) Not detected, Influenza Type B (PCR) Not detected 09/01/24 21:40: Troponin I < 0.01 09/02/24 06:23: POC Glucose 87 09/02/24 06:54: WBC 16.9 H, RBC 3.50 L, Hgb 9.3 L, Hct 29.4 L, MCV 84.0, MCH 26.6 L, MCHC 31.6 L, RDW 17.2, Plt Count 376, MPV 8.5, Neut % (Auto) 64.9, Lymph % (Auto) 23.4, [place] % (Auto) 9.8 H, Eos % (Auto) 0.6, Baso % (Auto) 0.5, Neut # (Auto) 11.0 H, Lymph # (Auto) 4.0, [place] # (Auto) 1.7 H, Eos # (Auto) 0.1, Baso # (Auto) 0.1, Total Counted 100, Neutrophils % (Manual) 69, Lymphocytes % (Manual) 21, Monocytes % (Manual) 10 H, Platelet Estimate Normal, RBC Morphology Normal, Sodium 136, Potassium 4.0, Chloride 109 H, Carbon Dioxide 19 L, Anion Gap 12.0, BUN 11, Creatinine 1.30 H, Estimated Creat Clear 73, Estimated GFR 55 L, Est GFR ( Amer) 67, Glucose 66 L, Calcium 8.8, Free T4 0.90 I & O for Last 24 hours: Intake & Output 08/30/24 08/31/24 09/01/24 09/02/24 23:59 23:59 23:59 23:59 Intake Total 930 / 930 Output Total 0 / 0 Balance 930 / 930 Weight 86.183 kg 91.354 kg Microbiology Reports for the Last 24 Hours: Microbiology 09/01/24 16:00 Blood Blood Culture - Preliminary NO GROWTH AFTER 24 HOURS 09/01/24 16:00 Blood Blood Culture - Preliminary NO GROWTH AFTER 24 HOURS Constitutional Constitutional: no acute distress *Routine HEENT Exam Head: Present normocephalic Eye: Present EOMI and PERRL ENT: Present mucous membranes moist *Routine Neck Exam Neck: Present supple; Absent lymphadenopathy *Routine Respiratory Exam Respiratory: Present CTA bilaterally *Routine Cardiovascular Exam Cardiovascular: Present RRR *Routine Abdominal Exam Abdominal: Present soft and normoactive bowel sounds; Absent tenderness *Routine Extremities Exam Extremities: Absent cyanosis, clubbing or edema *Routine Skin Exam Skin: Present warm; Absent rash *Routine Neurological Exam Neurological: Present alert and oriented X3 Assessment and Plan *Assessment and plan (1) Sepsis: Status: Acute Qualifiers: Sepsis type: sepsis due to unspecified organism Sepsis acute organ dysfunction status: with acute organ dysfunction Severe sepsis acute organ dysfunction type: acute renal failure Acute renal failure type: unspecified Severe sepsis shock status: without septic shock Qualified Code(s): A41.9 - Sepsis, unspecified organism; R65.20 - Severe sepsis without septic shock; N17.9 - Acute kidney failure, unspecified Category: Medical Code(s): A41.9 - Sepsis, unspecified organism (2) Pancolitis: Status: Acute Category: Medical Code(s): K51.00 - Ulcerative (chronic) pancolitis without complications (3) Diarrhea: Status: Acute Qualifiers: Diarrhea type: infectious Qualified Code(s): A09 - Infectious gastroent eritis and colitis, unspecified Category: Medical Code(s): R19.7 - Diarrhea, unspecified (4) ALEC (acute kidney injury): Status: Acute Category: Medical Code(s): N17.9 - Acute kidney failure, unspecified (5) HLD (hyperlipidemia): Status: Acute Qualifiers: Hyperlipidemia type: unspecified Qualified Code(s): E78.5 - Hyperlipidemia, unspecified Category: Medical Code(s): E78.5 - Hyperlipidemia, unspecified (6) HTN (hypertension): Status: Acute Qualifiers: Hypertension type: primary hypertension Qualified Code(s): I10 - Essential (primary) hypertension Category: Medical Code(s): I10 - Essential (primary) hypertension Plan Roberth Abraham is a 64-year-old male who presented with nausea/vomiting/diarrhea and was admitted for pancolitis. #Pancolitis #Diarrheal illness ? Patient feeling a lot better today, tolerating diet with minimal no nausea /vomiting/diarrhea. - Gastro path panel positive for astrovirus. Pancolitis noted on CT imaging. Given leukocytosis and septic like presentation, will continue Zosyn for broad- spectrum coverage ? WBC improved from 20-16.9. Given underlying pancreatic adenocarcinoma, will continue to treat with Zosyn for 1 more day. ? Continue Zosyn day 2. ? Advance diet to full liquids. #ALEC Creatinine of 1.3 with a baseline around 0.8. Continue maintenance IV fluids Monitor intake and output, follow-up morning BMP. #Pancreatic adenocarcinoma [facility] States that he is unable to tolerate chemo at this time but has not ruled out further chemo in the future. Did not want to go to to be transferred to [place] as would not be able to get there. Requested to stay locally for acute treatment ? Repeat CT abdomen/pelvis on admission does not reveal pancreatic masses. Unclear if improvement from chemotherapy. ? Patient has a follow-up appointment with [place] [facility]ology next week. Will share CT scan there. #T2DM Noted to be hypoglycemic on arrival to the floor with glucose of 62. D50 given as well as oral intake Monitor glucose closely, currently stable. Before meals and at bedtime Accu-Cheks and sliding scale insulin when appropriate #HTN Hold antihypertensives at this time given relative hypotension on arrival #HLD Continue home medications Full code DVT prophylaxis
[2024-09-02] MEDS: PANTOPRAZOLE 40MG TABLET 40 MG PO (20:51)
[2024-09-03] VITALS: PULSE 80
[2024-09-03 01:47] LABS: POC Glucose,Bedside 93 (70-110)
[2024-09-03 04:00] VITALS: BP 119/57; PULSE 85; RESP 16; TEMP 36.6; O2SAT 99; BMI 29.0
[2024-09-03] MEDS: PIPERACILLIN/TAZO 3.375 GM in 0.9 % SODIUM CHLORIDE 50 ML IV (05:41)
[2024-09-03 06:04] LABS: Basophils # 0.1 K/mm3 (0-0.2); Basophils % 0.6 % (0.1-2.0); Eosinophils # 0.2 K/mm3 (0.0-0.4); Eosinophils % 1.4 % (0.1-12.0); Hematocrit 26.7 % (42.0-52.0); Hemoglobin 8.7 g/dL (14.1-18.0); Lymphocytes # 2.6 K/mm3 (0.7-4.5); Lymphocytes % 23.2 % (10-50); Mean Corpuscular HGB Conc 32.6 g/dL (31.8-35.4); Mean Corpuscular Hemoglobin 27.4 pg (27.0-31.2); Mean Platelet Volume 8.5 fl (7.4-10.4); Monocytes # 1.3 K/mm3 (0.1-1.0); Monocytes % 11.4 % (1.7-9.3); Neutrophils # 6.9 K/mm3 (1.8-7.8); Neutrophils % 62.5 % (37.0-80.0); Platelet Count 379 K/mm3 (142-424); Red Blood Count 3.18 M/mm3 (4.60-6.20); Red Cell Distribution Width 17.2 % (11.5-17.5); White Blood Count 11.1 K/mm3 (4.8-10.8)
[2024-09-03 06:07] LABS: Albumin Level 2.4 g/dl (3.5-5.0); Chloride 110 mmol/L (98-107); Potassium 3.6 mmoL/L (3.5-5.1); Sodium 135 mmol/L (136-145)
[2024-09-03 06:09] LABS: Blood Urea Nitrogen 9 mg/dl (9-20); Creatinine Clearance Estimated 98 mL/min (50-200); Estimated Glomerular Filt Rate 75 ml/min (>60); GFR (African American) 91 ML/MIN (>60)
[2024-09-03 06:10] LABS: Alanine Aminotransferase 16 U/L (12-78); Alkaline Phosphatase 107 U/L (38-126); Anion Gap 7.6 mEq/L (5-15); Aspartate Amino Transferase 20 U/L (17-59); Bilirubin,Total 0.3 mg/dl (0.2-1.3); Calcium 8.2 mg/dl (8.4-10.2); Carbon Dioxide 21 mmol/L (22.0-30.0); Globulin 2.5 g/dL (1.3-3.2); Glucose 76 mg/dl (74-100); Magnesium 1.1 mg/dl (1.6-2.3); Total Protein,Serum 4.9 g/dl (6.3-8.2)
[2024-09-03] MEDS: LEVOTHYROXINE 50MCG (0.05MG) TAB 50 MCG PO (06:21)
[2024-09-03 08:00] VITALS: BP 123/72; PULSE 100; PULSE 117; RESP 18; TEMP 36.6; O2SAT 100
[2024-09-03] MEDS: PANTOPRAZOLE 40MG TABLET 40 MG PO (08:08)
[2024-09-03] MEDS: CEFEPIME HCL 2 GM in 0.9 % SODIUM CHLORIDE 100 ML IV (08:08)
[2024-09-03] MEDS: MAGNESIUM SULFATE IN WATER 2 GM/50 ML PIGGYBACK IV (10:54)
--- NOTE | 2024-09-03 11:22 | P.DS_ITS ---
General Admission date:: 09/01/24 HPI HPI HPI: This is a 64-year-old male with a past medical history of metastatic pancreatic adenocarcinoma, T2DM, hypertension who presents the emergency department today with complaints of 3 weeks of nausea and diarrhea. He reports being on chemo infusions for pancreatic adenocarcinoma. States that he has chemo treatments approximately every 3 weeks. He was supposed to have treatment last week but stated that he was too sick for this. States that he has had nausea and diarrhea for several weeks. Does endorse sick contacts at home with grandkids having influenza. He reports nonproductive cough without hemoptysis. Denies fever or chills. He stated that he was too sick to get to [facility] today so they told him to seek treatment in his local emergency department. He was noted to be hypotensive on arrival with systolic blood pressures in the 70s with improvement after IV fluids. Leukocytosis with a white count of 20, creatinine of 1.3, troponin negative x 2, lipase negative, procalcitonin 0.54 stool sample sent and positive for astrovirus. CTA chest abdomen pelvis obtained and notable for pancolitis, metallic stent in the common bile duct that is known from previous surgery. Chest imaging negative. Given his workup, he was treated with broad-spectrum antibiotics and IV fluids and admitted to the hospitalist service. Hospital Course Hospital Course Hospital Course: Roberth Abraham is a 64-year-old male who presented with nausea/vomiting/diarrhea and was admitted for pancolitis. #Pancolitis #Diarrheal illness - Gastro path panel positive for astrovirus. Pancolitis noted on CT imaging. Initial WBC 20, improved to 11.1. ? Clinically improved with Zosyn. Tolerating diet without nausea/vomiting/diarrhea. ? Discharged with levofloxacin for 5 more days. #ALEC ?Initial creatinine 1.3, improved to 1.0 with IV and oral fluid rehydration. #Pancreatic adenocarcinoma Reports receiving chemo infusions at the [place]. States that he is unable to tolerate chemo at this time but has not ruled out further chemo in the future. Did not want to go to to be transferred to [place] as would not be able to get there. Requested to stay locally for acute treatment ? Repeat CT abdomen/pelvis on admission does not reveal pancreatic masses. Unclear if improvement from chemotherapy. ? Patient has a follow-up appointment with [facility]ology next week. Will share CT scan there. #T2DM Hemoglobin A1c 8.0. Continue home Jardiance, metformin. #HTN Continue home regimen. #HLD Continue home medications Total time spent on discharge: 32 minutes on chart review, counseling, documentation, and direct care with patient. Exam Data for Last 24 hours Vital signs and Labs for Last 24 Hours: Temp Pulse Resp BP Pulse Ox O2 Del Method 97.8 F 117 H 18 123/72 100 Room Air 09/03/24 08:00 09/03/24 08:00 09/03/24 08:00 09/03/24 08:00 09/03/24 08:00 09/03/24 11:00 Laboratory Results - last 24 hr 09/02/24 06:54: Free T4 0.90 09/02/24 11:02: POC Glucose 93 09/03/24 05:50: WBC 11.1 H D, RBC 3.18 L, Hgb 8.7 L, Hct 26.7 L, MCV 84.0, MCH 27.4, MCHC 32.6, RDW 17.2, Plt Count 379, MPV 8.5, Neut % (Auto) 62.5, Lymph % (Auto) 23.2, Morehouse % (Auto) 11.4 H, Eos % (Auto) 1.4, Baso % (Auto) 0.6, Neut # (Auto) 6.9, Lymph # (Auto) 2.6, Morehouse # (Auto) 1.3 H, Eos # (Auto) 0.2, Baso # (Auto) 0.1, Sodium 135 L, Potassium 3.6, Chloride 110 H, Carbon Dioxide 21 L, Anion Gap 7.6, BUN 9, Creatinine 1.00 D, Estimated Creat Clear 98, Estimated GFR 75, Est GFR ( Amer) 91 D, Glucose 76, Calcium 8.2 L, Magnesium 1.1 L , Total Bilirubin 0.3, AST 20 D, ALT 16, Alkaline Phosphatase 107, Total Protein 4.9 L, Albumin 2.4 L, Globulin 2.5, Albumin/Globulin Ratio 1.0 L I & O for Last 24 hours: Intake & Output 08/31/24 09/01/24 09/02/24 09/03/24 23:59 23:59 23:59 23:59 Intake Total 1170 / 1870 2770 / 2770 Output Total 0 / 0 0 / 0 Balance 1170 / 1870 2770 / 2770 Weight 86.183 kg 91.354 kg 93.894 kg Microbiology Reports for the Last 24 Hours: Microbiology 09/01/24 16:00 Blood Blood Culture - Preliminary NO GROWTH AFTER 24 HOURS 09/01/24 16:00 Blood Blood Culture - Preliminary NO GROWTH AFTER 24 HOURS Constitutional Constitutional: no acute distress *Routine HEENT Exam Head: Present normocephalic Eye: Present EOMI and PERRL ENT: Present mucous membranes moist *Routine Neck Exam Neck: Present supple; Absent lymphadenopathy *Routine Respiratory Exam Respiratory: Present CTA bilaterally *Routine Cardiovascular Exam Cardiovascular: Present RRR *Routine Abdominal Exam Abdominal: Present soft and normoactive bowel sounds; Absent tenderness *Routine Extremities Exam Extremities: Absent cyanosis, clubbing or edema *Routine Skin Exam Skin: Present warm; Absent rash *Routine Neurological Exam Neurological: Present alert and oriented X3 Results Data Completed and Pending Labs on day of discharge: Labs from last 24 hours 09/03/24 09/02/24 09/02/24 05:50 11:02 06:54 WBC 11.1 H D RBC 3.18 L Hgb 8.7 L Hct 26.7 L MCV 84.0 MCH 27.4 MCHC 32.6 RDW 17.2 Plt Count 379 MPV 8.5 Neut % (Auto) 62.5 Lymph % (Auto) 23.2 Morehouse % (Auto) 11.4 H Eos % (Auto) 1.4 Baso % (Auto) 0.6 Neut # (Auto) 6.9 Lymph # (Auto) 2.6 Morehouse # (Auto) 1.3 H Eos # (Auto) 0.2 Baso # (Auto) 0.1 Sodium 135 L Potassium 3.6 Chloride 110 H Carbon Dioxide 21 L Anion Gap 7.6 BUN 9 Creatinine 1.00 D Estimated Creat Clear 98 Estimated GFR 75 Est GFR ( Amer) 91 D Glucose 76 POC Glucose 93 Calcium 8.2 L Magnesium 1.1 L Total Bilirubin 0.3 AST 20 D ALT 16 Alkaline Phosphatase 107 Total Protein 4.9 L Albumin 2.4 L Globulin 2.5 Albumin/Globulin Ratio 1.0 L Free T4 0.90 Preliminary micro results at discharge 09/01/24 16:00 Blood Culture - Preliminary Blood NO GROWTH AFTER 24 HOURS 09/01/24 16:00 Blood Culture - Preliminary Blood NO GROWTH AFTER 24 HOURS DS: Diagnosis Discharge Diagnosis (1) Sepsis: Status: Acute Code(s): A41.9 - Sepsis, unspecified organism Qualifiers: Acute renal failure type: unspecified Sepsis acute organ dysfunction status: with acute organ dysfunction Sepsis type: sepsis due to unspecified organism Severe sepsis acute organ dysfunction type: acute renal failure Severe sepsis shock status: without septic shock Qualified Code(s): A41.9 - Sepsis, unspecified organism; R65.20 - Severe sepsis without septic shock; N17.9 - Acute kidney failure, unspecified (2) Pancolitis: Status: Acute Code(s): K51.00 - Ulcerative (chronic) pancolitis without complications (3) Diarrhea: Status: Acute Code(s): R19.7 - Diarrhea, unspecified Qualifiers: Diarrhea type: infectious Qualified Code(s): A09 - Infectious gastroenteritis and colitis, unspecified (4) ALEC (acute kidney injury): Status: Acute Code(s): N17.9 - Acute kidney failure, unspecified (5) HLD (hyperlipidemia): Status: Acute Code(s): E78.5 - Hyperlipidemia, unspecified Qualifiers: Hyperlipidemia type: unspecified Qualified Code(s): E78.5 - Hyperlipidemia, unspecified (6) HTN (hypertension): Status: Acute Code(s): I10 - Essential (primary) hypertension Qualifiers: Hypertension type: primary hypertension Qualified Code(s): I10 - Essential (primary) hypertension Meds Home Medications and Allergies Home Medications ?Medication ?Instructions ?Recorded ?Confirmed ?Type atorvastatin 80 mg tablet 80 mg PO HS 90 days ##90 01/27/18 09/02/24 History metoprolol tartrate 100 mg tablet 100 mg PO DAILY 90 days ##90 01/27/18 09/02/24 History omeprazole 20 mg capsule,delayed 20 mg PO BID 90 days ##90 01/27/18 09/02/24 History release empagliflozin 25 mg tablet 25 mg PO DAILY 12/26/23 09/02/24 History (Jardiance) fluticasone propionate 50 2 spray intranasal DAILY 12/26/23 09/02/24 History mcg/actuation nasal spray,suspension loratadine 10 mg tablet 10 mg PO DAILY 12/26/23 09/02/24 History losartan 100 mg tablet 100 mg PO DAILY 12/26/23 09/02/24 History magnesium oxide 420 mg tablet 420 mg PO DAILY 12/26/23 09/02/24 History metformin 500 mg tablet,extended 1,000 mg PO BID 12/26/23 09/02/24 History release 24 hr potassium chloride 10 mEq 10 meq PO TID 12/26/23 09/02/24 History tablet,extended release sertraline 100 mg tablet 50 mg PO DAILY 12/26/23 09/02/24 History psyllium husk 3 gram/5.4 gram oral 1 tsp PO DAILY 01/05/24 09/02/24 History powder (Reguloid (psyllium husk)) gabapentin 600 mg tablet 300 mg (1/2 x 600 mg) PO HS #30 02/16/24 09/02/24 Rx tabs levofloxacin 750 mg tablet 750 mg PO DAILY 5 days #5 tabs 09/03/24 Rx levothyroxine 25 mcg capsule 50 mcg (2 x 25 mcg) PO DAILY #30 09/03/24 09/02/24 Rx caps New Prescriptions to Start Prescriptions: Gennaro Maldonado Allergies Allergy/AdvReac Type Severity Reaction Status Date / Time No Known Allergies Allergy Verified 02/16/24 08:52 Discharge Plan Disposition Patient Disposition: Home, Self-Care Condition: Fair Discharge Order Discharge Orders: Discharge Order (Routine); Ordered 09/03/24 Ordered By: Gennaro Powell Follow up Plan Prescriptions/Medication Reconciliation: New levofloxacin 750 mg tablet 750 mg PO DAILY 5 Days Qty: 5 0RF Continued Reguloid (psyllium husk) 3 gram/5.4 gram powder 1 tsp PO DAILY atorvastatin 80 mg tablet 80 mg PO HS 90 Days Qty: 90 omeprazole 20 mg capsule,delayed release(DR/EC) 20 mg PO BID 90 Days Qty: 90 metoprolol tartrate 100 mg tablet 100 mg PO DAILY 90 Days Qty: 90 gabapentin 600 mg tablet 300 mg PO HS Qty: 30 2RF magnesium oxide 420 mg tablet 420 mg PO DAILY sertraline 100 mg tablet 50 mg PO DAILY potassium chloride 10 mEq tablet extended release 10 meq PO TID fluticasone propionate 50 mcg/actuation spray,suspension 2 spray INTRANASAL DAILY metformin 500 mg tablet extended release 24 hr 1,000 mg PO BID loratadine 10 mg tablet 10 mg PO DAILY Jardiance 25 mg tablet 25 mg PO DAILY Changed levothyroxine 25 mcg capsule 50 mcg PO DAILY Qty: 30 0RF Held losartan 100 mg tablet 100 mg PO DAILY Hold Instructions: Resume on 09/10/24. Your blood pressure has been stable without this medication. [facility]. Problem Reconciliation Problems Reviewed?: Yes Patient Discharge Instructions Patient Instructions: Dehydration Print Language: Bengali Providers Primary Care Provider: Olive Cooney Admit Provider: Gennaro Powell Attending Provider: Gennaro Powell
[2024-09-03 11:37] LABS: POC Glucose,Bedside 102 (70-110)
[2024-09-03 12:56] LABS: Microscopic, Urine URINE MICROSCOPIC (MICROSCOPIC)
[2024-09-03 13:23] LABS: Appearance,Urine SL CLOUDY (Clear); Bilirubin,Urine Negative (Negative); Blood, Urine TRACE-I (Negative); Color,Urine YELLOW (Yellow); Glucose,Urine (UA) Negative (Negative); Ketones,Urine TRACE (Negative); Leukocyte Esterase,Urine Negative (Negative); Nitrate,Urine Negative (Negative); PH,Urine 5.5 (5.0-8.5); Protein,Urine TRACE (Negative); Specific Gravity, Urine 1.025 (1.005-1.030); Urobilinogen,Urine 0.2 EU/dl (0.2)
[2024-09-03 13:35] LABS: Hyaline Casts,Urine OCC #/lpf (0); Squamous Epithelial Cell,Urine Occasional #/hpf (0-5); WBC,Urine Occasional #/hpf (0-3)
[2024-09-03 13:36] LABS: Amorphous Sediment,Urine Trace /lpf; Bacteria,Urine Trace /lpf
--- NOTE | 2024-09-05 10:46 | SW/DCPLANNER ---
Spoke with patient on the phone. Patient stated that he is doing well. Patient stated that he was able to get his medicine picked up from [facility]. Patient stated that he has no concern or questions at this time and that he doesnt have any follow up appointments. Digna Bennett
== END 2024-09-03 12:11 | disposition home or self-care (01) | DRG 391 ==
LOC: ER 18:30 → 2ND 18:39
PROVIDERS: Nurse Practitioner; Nurse Practitioner Acute Care; Admitting Provider Student in an Organized Health Care Education/Training Program; Emergency Provider Student in an Organized Health Care Education/Training Program; PCP Family Medicine; Visit Provider Student in an Organized Health Care Education/Training Program
DX: A08.32 Astrovirus enteritis (principal); A41.9 Sepsis, unspecified organism; R65.20 Severe sepsis without septic shock; N17.9 Acute kidney failure, unspecified; C25.9 Malignant neoplasm of pancreas, unspecified; C79.9 Secondary malignant neoplasm of unspecified site; A09 Infectious gastroenteritis and colitis, unspecified; E86.0 Dehydration; D72.829 Elevated white blood cell count, unspecified; I95.9 Hypotension, unspecified; R11.2 Nausea with vomiting, unspecified; I10 Essential (primary) hypertension; M54.9 Dorsalgia, unspecified; E11.9 Type 2 diabetes mellitus without complications; R05.9 Cough, unspecified; F17.210 Nicotine dependence, cigarettes, uncomplicated; E78.5 Hyperlipidemia, unspecified; Z79.84 Long term (current) use of oral hypoglycemic drugs; Z80.9 Family history of malignant neoplasm, unspecified; Z83.3 Family history of diabetes mellitus; Z82.49 Family history of ischemic heart disease and other diseases of the circulatory system; Z82.61 Family history of arthritis; Z79.890 Hormone replacement therapy; Z79.51 Long term (current) use of inhaled steroids; Z79.899 Other long term (current) drug therapy; Z96.89 Presence of other specified functional implants; Z59.82 Transportation insecurity
CPT/HCPCS: 70450; 71045; 71275; 74177; 80048; 80053; 81001; 82803; 82962; 83690; 83735; 84145; 84439; 84484; 85007; 85025; 86850; 87040; 87507; 87636; 93005; 99291; J1642; J2405; J2543; J3475; J7120; Q9967

== ENCOUNTER 2025-01-17 23:36 | Emergency (ER) | payer OTHER, SELFPAY ==
--- OUTSIDE RECORDS SUMMARY | 2024-11-29 03:29 | XMS_ITS | Continuity of Care Document ---
Author Organization [facility] Phone Care Team Providers Care Grounds Maintenance Manager Name Role Phone ESTEFANIA SOLIZ Unavailable ESTEFANIA SOLIZ Primary Care ESTEFANIA SOLIZ Admitting ESTEFANIA SOLIZ Primary Attending RESULTS Patient: MIMI PRESTON Date of : 1960 1 LABORATORY RESULTS ORDER 100: COMP METABOLIC PA JESSIE (LOINC: 98133-0) ORDER DATE: November 27, 2024 4:57:00 PM UTC Specimen Source: PLASMA Specimen Type: Plasma specim en PERFORMING LAB: [address] [id number] Result Comment: Final Result Date: November 27, 2024 5:43:00 PM UTC (TECH: AAC) LOINC TEST FLAG RESULT REFERENCE RANGE UPDA MEGAN BY 2951-2 Sodium [Moles/volume ] in Serum or Plasma L 134 mmol/L 136 mmol/L - 145 mmol/L November 27, 2024 5:43:00 PM UTC (TECH: AAC) 2823-3 Potassium [Moles/volume] in Serum or Plasma N 3.9 mmol/L 3.6 mmol/L - 5.0 mmol/L November 27, 2024 5:43:00 PM UTC (TECH: AAC) 2075-0 Chloride [Moles/volu me] in Serum or Plasma N 103 mmol/L 98 mmol/L - 107 mmol/L November 27, 2024 5:43:00 PM UTC (TECH: AAC) 8-9 Carbon dioxide, tota l [Moles/volume] in Serum or Plasma N 22.6 mmol/L 21.0 mmol/L - 32.0 mmol/L November 27, 2024 5:43:00 PM UTC (TECH: AAC) 48120-7 Anion gap in Blood N 12.3 M ay 2024 5:43:00 PM UTC (TECH: AAC) 2345-7 Glucose [Mass/volume ] in Serum or Plasma N 111 mg/dl 70 mg/dl - 120 mg/dl November 27, 2024 5:43:00 PM UTC (TECH: AAC) 6299-2 Urea nitrogen [Mass/volume] in Blood L 4 mg/dL 7 mg/dL - 18 mg/dL November 27, 2024 5:43:00 PM UTC (TECH: AAC) 74512-3 Creatinine [Moles/volume] in Blood N 1.1 mg/dL 0.6 mg/dL - 1.3 mg/dL November 27, 2024 5:43:00 PM UTC (TECH: AAC) 23004-5 Glomerular filtratio n rate/1.73 sq M.predicted by Creatinine-based formula (MDRD) N 74 mlpermin 60 mlpermin November 27, 2024 5:43:00 PM UTC (TECH: AAC) 32003-9 Osmolality of Serum or Plasma by calculated by sum of electrolytes N 277 mosm/kg 275 mosm/kg - 301 mosm/kg November 27, 2024 5:43:00 PM UTC (TECH: AAC) 2885-2 Protein [Mass/volume ] in Serum or Plasma L 6.2 g/dl 6.4 g/dl - 8.2 g/dl November 27, 2024 5:43:00 PM UTC (TECH: AAC) 1751-7 Albumin [Mass/volume ] in Serum or Plasma L 2.6 g/dl 3.4 g/dl - 5.0 g/dl November 27, 2024 5:43:00 PM UTC (TECH: AAC) 2336-6 Globulin [Mass/volum e] in Serum N 3.6 November 27, 2024 5:43:00 PM UTC (TECH: AAC) 1759-0 Albumin/Globulin [Ma ss Ratio] in Serum or Plasma N 0.7 0.7 - 2 November 27, 2024 5:43:00 PM UTC (TECH: AAC) 19752-2 Calcium [Mass/volume ] in Serum or Plasma N 8.8 mg/dl 8.5 mg/dl - 10.5 mg/dl November 27, 2024 5:43:00 PM UTC (TECH: AAC) 1975-2 Bilirubin.total [Mass/volume] in Serum or Plasma N 0.20 mg/dL 0.10 mg/dL - 1.00 mg/dL November 27, 2024 5:43:00 PM UTC (TECH: AAC) 1920-8 Aspartate aminotransferase [Enzymatic activity/volume] in Serum or Plasma N 13 U/L 0 U/L - 37 U/L November 27, 2024 5:43:00 PM UTC (TECH: AAC) 1742-6 Alanine aminotransferase [Enzymatic activity/volume] in Serum or Plasma N 17 U/L 0 U/L - 65 U/L November 27, 2024 5:43:00 PM UTC (TECH: AAC) 6768-6 Alkaline phosphatase [Enzymatic activity/volume] in Serum or Plasma H 151 U/L 46 U/L - 116 U/L November 27, 2024 5:43:00 PM UTC (TECH: AAC) ORDER 200: CBC AUTO W DIFF ( LOINC: 56540-8) ORDER DATE: November 27, 2024 4:57:00 PM UTC Specimen Source: EDTA Specimen Type: Blood specime n with EDTA PERFORMING LAB: [address] [id number] Result Comment: Final Result Date: November 27, 2024 5:10:00 PM UT (TECH: KAC) LOINC TEST FLAG RESULT REFERENCE RANGE UPDATED BY 6690-2 Leukocytes [#/volume] in Blood by Automated count H 11.2 K/ul 4.0 K/ul - 10.5 K/ul November 27, 2024 5:10:00 PM UTC (TECH: KAC) 789-8 Erythrocytes [#/volume] in Blood by Automated count L 3.8 M/mm3 4.7 M/mm3 - 6.1 M/mm3 November 27, 2024 5:10:00 PM UTC (TECH: KAC) 718-7 Hemoglobin [Mass/volume] in Blood L 10.8 gm/dl 13.5 gm/dl - 18.0 gm/dl November 27, 2024 5:10:00 PM UTC (TECH: KAC) 51834-8 Hematocrit [Volume Fraction] of Blood L 34.4 % 42.0 % - 52.0 % November 27, 2024 5:10:00 PM UTC (TECH: KAC) 787-2 Erythrocyte mean corpuscular volume [Entitic volume] by Automated count N 90.1 fl 78 fl - 100 fl November 27, 2024 5:10:00 PM UTC (TECH: ReDigiC) 785-6 Erythrocyte mean corpuscular hemoglobin [Entitic mass] by Automated count N 28.3 pg 27 pg - 31 pg November 27, 2024 5:10:00 PM UTC (TECH: ReDigiC) 786-4 Erythrocyte mean corpuscular hemoglobin concentration [Mass/volume] by Automated count L 31.4 g/dl 32 g/dl - 36 g/dl November 27, 2024 5:10:00 PM UTC (TECH: Sportboom) 67011-4 Erythrocyte distribution width [Ratio] H 14.3 % 11.5 % - 14.0 % November 27, 2024 5:10:00 PM UTC (TECH: Sportboom) 777-3 Platelets [#/volume] in Blood by Automated count N 346 K/ul 150 K/ul - 450 K/ul November 27, 2024 5:10:00 PM UTC (TECH: Sportboom) 03632-8 Platelet mean volume [Entitic volume] in Blood by Automated count N 8.9 fl 6 fl - 9.5 fl November 27, 2024 5:10:00 PM UTC (TECH: Sportboom) 58510-6 Neutrophils/100 leukocytes in Blood N 60.3 % 43 % - 65 % November 27, 2024 5:10:00 PM UTC (TECH: Sportboom) 736-9 Lymphocytes/100 leukocytes in Blood by Automated count N 29.2 % 20.5 % - 45.5 % November 27, 2024 5:10:00 PM UTC (TECH: Sportboom) 5905-5 Monocytes/100 leukocytes in Blood by Automated count N 7.6 % 5.5 % - 11.7 % November 27, 2024 5:10:00 PM UTC (TECH: Sportboom) 713-8 Eosinophils/100 leukocytes in Blood by Automated count N 2.1 % 0.9 % - 2.9 % November 27, 2024 5:10:00 PM UTC (TECH: Sportboom) 706-2 Basophils/100 leukocytes in Blood by Automated count N 0.4 % 0.2 % - 1.0 % November 27, 2024 5:10:00 PM UTC (TECH: Sportboom) 19757-7 Immature granulocytes/100 leukocytes in Blood by Automated count N 0.4 % 0.0 % - 0.8 % November 27, 2024 5:10:00 PM UTC (TECH: Sportboom) 36411-9 Nucleated cells [#/volume] in Blood N 0.0 % November 27, 2024 5:10:00 PM UTC (TECH: Sportboom) 12216-5 Neutrophils [#/volume] in Blood H 6.7 K/uL 2.2 K/uL - 4.8 K/uL November 27, 2024 5:10:00 PM UTC (TECH: Sportboom) 731-0 Lymphocytes [#/volume] in Blood by Automated count H 3.3 CELL/MCL 1.3 CELL/MCL - 2.9 CELL/MCL November 27, 2024 5:10:00 PM UTC (TECH: Sportboom) 742-7 Monocytes [#/volume] in Blood by Automated count H 0.9 CELL/MCL 0.3 CELL/MCL - 0.8 CELL/MCL November 27, 2024 5:10:00 PM UTC (TECH: Sportboom) 711-2 Eosinophils [#/volume] in Blood by Automated count N 0.2 CELL/MCL 0 CELL/MCL - 0.2 CELL/MCL November 27, 2024 5:10:00 PM UTC (TECH: Sportboom) 704-7 Basophils [#/volume] in Blood by Automated count N 0.1 CELL/MCL 0.0 CELL/MCL - 1.0 CELL/MCL November 27, 2024 5:10:00 PM UTC (TECH: Sportboom) 49495-8 Immature granulocytes [#/volume] in Blood N 0.04 K/ul November 27, 2024 5:10:00 PM UTC (TECH: Sportboom) 27414-5 Nucleated cells [#/volume] in Blood N 0.00 K/uL November 27, 2024 5:10:00 PM UTC (TECH: Sportboom) 33817-3 Manual Differential panel - Blood N NO November 27, 2024 5:10:00 PM UTC (TECH: Sportboom) ORDER 300: CEA (LOINC: 2039- 6) ORDER DATE: November 27, 2024 4:57:00 PM UTC Specimen Source: SERUM Specimen Type: Serum specime n PERFORMING LAB: [facility] [address] [facility] [id number] Result Comment: November 28, 2024 12:11:00 PM UTC Nonsmokers <3.9 Result Comment: November 28, 2024 12:11:00 PM UTC Smokers <5.6 Result Comment: November 28, 2024 12:11:00 PM UTC . Result Comment: November 28, 2024 12:11:00 PM UTC [facility] Electrochemiluminescence Immunoassay Result Comment: November 28, 2024 12:11:00 PM UTC (ECLIA) Result Comment: November 28, 2024 12:11:00 PM UTC . Result Comment: November 28, 2024 12:11:00 PM UTC Values obtained with different assay methods or kits Result Comment: November 28, 2024 12:11:00 PM UTC cannot be used interchangeably. Results cannot be Result Comment: November 28, 2024 12:11:00 PM UTC interpreted as absolute evidence of the presence or Result Comment: November 28, 2024 12:11:00 PM UTC absence of malignant disease. Result Comment: November 28, 2024 12:11:00 PM UTC Performed at: [facility] Result Comment: November 28, 2024 12:11:00 PM UTC [address] [place], [place] [id number] Result Comment: November 28, 2024 12:11:00 PM UTC Cupola Mechanic: Roscoe Langford PhD, Phone: [phone] Result Comment: November 28, 2024 12:11:00 PM UTC Final Result Date: November 28, 2024 3:35:00 PM UTC (TECH: LAB) LOINC TEST FLAG RESULT REFERENCE RANGE UPDATED BY 2038-12 Carcinoembryonic Ag [Mass/volume] in Serum or Plasma H 45.0 ng/mL 0.0-4.7 November 28, 2024 3:35:00 PM UTC (TECH: LAB) ORDER 400: CA 19-9 (LOINC: 2 4108-3) ORDER DATE: November 27, 2024 4:57:00 PM UTC Specimen Source: SERUM Specimen Type: Serum specime n PERFORMING LAB: [facility] [address] [facility] [id number] Result Comment: November 28, 2024 12:11:00 PM UTC [facility] Electrochemiluminescence Immunoassay Result Comment: November 28, 2024 12:11:00 PM UTC (ECLIA) Result Comment: November 28, 2024 12:11:00 PM UTC . Result Comment: November 28, 2024 12:11:00 PM UTC Values obtained with different assay methods or kits Result Comment: November 28, 2024 12:11:00 PM UTC cannot be used interchangeably. Results cannot be Result Comment: November 28, 2024 12:11:00 PM UTC interpreted as absolute evidence of the presence or Result Comment: November 28, 2024 12:11:00 PM UTC absence of malignant disease. Result Comment: November 28, 2024 12:11:00 PM UTC Performed at: [facility] Result Comment: November 28, 2024 12:11:00 PM UTC [address] [place], [place] [id number] Result Comment: November 28, 2024 12:11:00 PM UTC Cupola Mechanic: Roscoe Langford PhD, Phone: [phone] Result Comment: November 28, 2024 12:11:00 PM UTC Final Result Date: November 28, 2024 3:35:00 PM UTC (TECH: LAB) LOINC TEST [place] [address]-4 Cancer Ag 19-9 [Units/volume] in Serum or Plasma N 18 U/mL 0-35 November 28, 2024 3:3 5:00 PM UTC (TECH: LAB) LABORATORY NARRATIVE RESULTS Information is not available RADIOLOGY RESULTS Information is not available PATHOLOGY NARRATIVE RESULTS Information is not available MICROBIOLOGY RESULTS No Micro Labs/Results Exist for Patient BLOOD ADMIN RESULTS Information is not available MEDICATIONS HOME MEDICATIONS Status RXNORM NDC Medication Dose Route Frequency Dates Comments Reported By Updated By Drug Treatment Unknown DISCHARGE MEDICATIONS Status RXNORM NDC Medication Dose Route Frequency Dates Comments Physician Updated By No Discharge Medication Info rmation Available INPATIENT MEDICATIONS Status RXNORM NDC Medication Dose Route Frequency Rat e Quantity Dates Comments Physician Updated By No Inpatient Medication Info rmation Available SOCIAL HISTORY SOCIAL HISTORY SNOMED-CT Social History Element Description Effective Dates Offered Cessation Comment UpdatedBy [id number] Smoking Status Unknown If Ever Smoked SOCIAL HISTORY - Gender Sex: Male SOCIAL HISTORY - Status : status i nformation is not available Intention in Next Year: intention information is not available SOCIAL HISTORY - Sexual Behavior Sexual Orientation Gender Identity SNOMED-CT Description SNO MED -CT Description Activity Level No of Partners Partner Type UpdatedBy Information is not available HEALTH CONCERNS Problems Concern Status Health Concern problem infor mation not available. Smoking Status Status Years Used Consumed packs p er day Health Concern smoking histo ry information not available. Family History Concern Status Health Concern family histor y information not available. ENCOUNTERS ENCOUNTER INFORMATION Reason for Visit Not Specified Admission November 27, 2024 3:41:[address] [place] [id number] [facility] [id number] Discharge November 27, 2024 3:41:00 PM [facility] DISC HARGED TO HOME OR SELF CARE ENCOUNTER DIAGNOSES Notes information is not garret ilable. Code System Diagnosis Onset Date Diagnosis information is not available. 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 [id number] on November 29, 2024 7:29:05 AM [facility] CARE TEAM Care Grounds Maintenance Manager Role ESTEFANIA SOLIZ Referring ESTEFANIA SOLIZ Primary Care ESTEFANIA SOLIZ Admitting ESTEFANIA SOLIZ Primary Attending CARE TEAM CARE supervisor pyrotechnic loading Role on Team Status Start Date End Date Update d By MARTÍNEZ PRETTY PCP normal November 27 4:00:00 AM [facility] November 27, 2024 3:41:00 PM [facility] [id number] on November 27, 2024 3:47:20 PM [facility] MARTÍNEZ PRETTY Referring normal November 27 4:00:00 AM [facility] November 27, 2024 3:41:00 PM [facility] [id number] on November 27, 2024 3:47:20 PM [facility] MARTÍNEZ PRETTY Attending normal November 27 4:00:00 AM [facility] November 27, 2024 3:41:00 PM [facility] [id number] on November 27, 2024 3:47:20 PM [facility] MARTÍNEZ PRETTY Admitting normal November 27 4:00:00 AM [facility] November 27, 2024 3:41:00 PM [facility] [id number] on November 27, 2024 3:47:20 PM [facility]
--- OUTSIDE RECORDS SUMMARY | 2024-12-15 23:59 | XMS_ITS | Encounter Summary ---
Author Organization Healthcare Address [address] [id number] Care Team Providers Care Veterinary Nurse Name Role Phone Pcp, No Primary Care Provider Unavailabl e Encounter Details Date Type Department Care Team (Late st Contact Info) Description 12/15/2024 11:59 PM EDT Anesthesia Event [facility] [address] [place] [address] Bud Manzanares, DO [address] [place] [address] Anesthesia Record Procedure Summary Procedure Name Responsible Anesthesiologist Anesthesia Start Time Anesthesia Stop Time EGD Events No events on file. Meds * Agents No agents on file. * Blood No blood administrations on file. Lines, Drains, and Airways No LDAs on file. documented in this encounter Social History Tobacco Use Types Packs/Day Years Used Date Smoking Tobacco: Every Day Cigarettes 1 45.6 Started: 06/14/1979 Smokeless Tobacco: Never Alcohol Use Standard Drinks/Week Comments Not Currently 0 (1 standard drink = 0.6 oz pur e alcohol) Humiliation, Afraid, Rape, and Kick questionnair e Answer Date Recorded Within the last year, have y ou been afraid of your partner or ex-partner? No 05/31/2024 Within the last year, have y ou been humiliated or emotionally abused in other ways by your partner or ex-partner? No Within the last year, have y ou been kicked, hit, slapped, or otherwise physically hurt by your partner or ex-partner? No 05/31/2024 Within the last year, have y ou been raped or forced to have any kind of sexual activity by your partner or ex-partner? No 05/31/2024 Social Connection and Isolation Panel Answer Date Recorded In a typical week, how many times do you talk on the phone with family, friends, or neighbors? More than three times a week 05/31/2024 How often do you get togethe r with friends or relatives? More than three times a week 05/31/2024 How often do you attend chur ch or latter day services? Never 05/31/2024 Do you belong to any clubs o r organizations such as episcopalian groups, unions, fraternal or athletic groups, or school groups? No 05/31/2024 How often do you attend meet ings of the clubs or organizations you belong to? Never 05/31/2024 Are you , , di vorced, , never , or living with a partner? 05/31/2024 AUDIT-C Answer Date Recorded Q1: How often do you have a drink containing alcohol? Never 05/31/2024 Q2: How many drinks containi ng alcohol do you have on a typical day when you are drinking? Patient does not drink Q3: How often do you have si x or more drinks on one occasion? Never 05/31/2024 [facility] - Occupational Stress Questionnaire Answer Date Recorded Do you feel stress - tense, restless, nervous, or anxious, or unable to sleep at night because your mind is troubled all the time - these days? Only a little 05/31/2024 Exercise Vital Sign Answer Date Recorde d On average, how many days pe r week do you engage in moderate to strenuous exercise (like a brisk walk)? 0 days 05/31/2024 On average, how many minutes do you engage in exercise at this level? 0 min 05/31/2024 Hunger Vital Sign Answer Date Recorded Within the past 12 months, y ou worried that your food would run out before you got the money to buy more. Never true 05/31/20 24 Within the past 12 months, t he food you bought just didn't last and you didn't have money to get more. Never true 05/31/2024 PRAPARE - Transportation Answer Date Re corded In the past 12 months, has l ack of transportation kept you from medical appointments or from getting medications? No 05/19 In the past 12 months, has l ack of transportation kept you from meetings, work, or from getting things needed for daily living? No 05/31/2024 Housing Stability Vital Sign Answer Ralph e Recorded In the last 12 months, was t here a time when you were not able to pay the mortgage or rent on time? No 05/31/2024 In the past 12 months, how m any times have you moved where you were living? 1 05/31/2024 At any time in the past 12 m [facility], were you homeless or living in a half-way (including now)? No 05/31/2024 Utilities Answer Date Recorded In the past 12 months has th e electric, gas, oil, or water company threatened to shut off services in your home? No 05/31/2024 Sex and Gender Information Value Date Recorded Sex Assigned at Not on file Legal Sex Male 6:55 PM EDT Gender Identity Not on file Sexual Orientation Not on file documented as of this encounter Plan of Treatment Not on file documented as of this encounter Goals Goal Patient Goal Type Associated Problems Recent Progress Patient-Stated? Author Autogenerat ed Goal Care Plan Autogenerated Problem No Selma Faulkner documented as of this encounter Visit Diagnoses Not on filedocumented in this encounter Additional Health Concerns Active Problems Noted Date Diagnosed Date Autogenerated Problem 12/18/2024 Assessment Noted Time A fall risk assessment has been complete d for the patient 06/14/2024 10:53 AM EST A Body Mass Index follow-up plan has been documented for the patient 06/14/2024 11:10 AM EST documented as of this encounter Care Teams Veterinary Nurse Relationship Specialty Start Date End Date Pcp, No [address] [place] [address] PCP - General Family Medicine 05/25/24 documented as of this encounter
--- OUTSIDE RECORDS SUMMARY | 2024-12-22 08:54 | XMS_ITS | Encounter Summary ---
Author Organization Healthcare Address [address] [place] [address] Care Team Providers Care Guest Relations Officer Name Role Phone Pcp, No Primary Care Provider Unavailabl e Reason for Referral * Imaging (Routine) - Closed Specialty Diagnoses / Procedures Referred By Jennifer delgado Referred To Contact Gastroenterology Diagnoses Malignant neoplasm of head of pancreas (CMS/HCC) Pancreatic cyst Procedures EGD w Necrosectomy Nilesh Balderrama MD [address] [address] Phone: tel: fax: Referral ID Status Reason Start Date Expiration Date V isits Requested Visits Authorized [id number] Closed Specialty Services Required 11/09/2024 05/11/2026 1 1 Reason for Visit * Imaging (Routine) - Closed Specialty Diagnoses / Procedures Referred By Jennifer delgado Referred To Contact Gastroenterology Diagnoses Malignant neoplasm of head of pancreas (CMS/HCC) Pancreatic cyst Procedures EGD w Necrosectomy Nilesh Balderrama MD [address] [address] Phone: tel: fax: Referral ID Status Reason Start Date Expiration Date V isits Requested Visits Authorized [id number] Closed Specialty Services Required 11/09/2024 05/11/2026 1 1 Encounter Details Date Type Department Care Team (Latest Contact Info) Description 12/22/2024 8:54 AM EDT - 12/22/2024 11:59 PM EDT Hospital Encounter [facility] [address] [place] [id number] Nilesh Balderrama MD [address] [place] [address] Shirley Vanegas, RN [facility] Malignant neoplasm of head of pancreas (CMS/HCC); Pancreatic cyst Discharge Disposition: Home or Self Care Social History Tobacco Use Types Packs/Day Years [...] often do you attend chur ch or samaritan services? Never 05/31/2024 Do you belong to [...] more drinks on one occasion? Never 05/31/2024 [facility] - Occupational Stress [...] any time in the past 12 m [facility], were you homeless or living in a alf (including now)? No 05/31/2024 Utilities Answer Date [...] on file documented as of this encounter Last Filed Vital Signs Vital Sign Reading Time Taken Comments Blood Pressure 130/86 12/22/2024 10:35 AM EDT Pulse 89 12/22/2024 10:35 AM EDT Temperature 36.5 C (97.7 F) 12/22/2024 10:05 AM EDT Respiratory Rate 15 12/22/2024 10:3 5 AM EDT Oxygen Saturation 100% 12/22/2024 10: 35 AM EDT Inhaled Oxygen Concentration - - Weight 82.4 kg (181 lb 10.5 oz) 12/22/2024 9:18 AM EDT Height 177.8 cm (5' 10 ) 12/22/2024 9:18 AM EDT Body Mass Index 26.07 12/22/2024 9:18 AM EDT documented in this encounter Medications at Time of Discharge atorvastatin (Lipitor) 80 MG tablet Take 1 tablet by mouth 1 time each day. 11/19/2023 glipiZIDE (Glucotrol) 10 MG tablet Take 0.5 tablets by mouth 2 times a day before meals. 05/02/2024 levothyroxine (Synthroid) 150 MCG tablet Take 1 tablet by mouth daily before breakfast. 05/09/2024 Magnesium Oxide -Mg Supplement 420 (252 Mg) MG tablet 10/06/2023 metFORMIN XR (Glucophage-XR) 500 MG 24 hr tablet Take 4 tablets by mouth. TAKE FOUR TABLETS BY MOUTH DAILY FOR BLOOD SUGAR 05/25/2024 omeprazole (PriLOSEC) [address] capsule Take 1 capsule by mouth twice a day. 12/21/2023 sertraline (Zoloft) 100 MG tablet Take 0.5 tablets by mouth daily. 11/19/2023 traMADol (Ultram) 50 MG tablet Take 2 tablets by mouth 3 times a day as needed for moderate pain. 05/03/2024 documented as of this encounter Miscellaneous Notes * H&P - Nilesh Balderrama MD - 12/22/2024 10:30 AM EDT Images from the original note were not included. Subjective Chief complaint WOPN History Of Present Illness Roberth Morales is a 64 y.o. male presenting with WOPN for cystgastrostomy stent removal Medical/Surgical/Social/Family History I have reviewed and updated the patient history. Travel History Relevant International Travel History: Travel Screening Question Response Have you been in contact with someone who was sick? No / Unsure Do you have any of the following new or worsening symptoms? None of these Have you traveled internationally or domestically in the last month? No Travel History Travel since 11/21/24 No documented travel since 11/21/24 Relevant Domestic Travel History: Immunizations Reviewed Allergies Semaglutide(0.25 or 0.5mg-dos) Medications Current Medications[1] Objective Physical Exam Vitals and nursing note reviewed. Constitutional: Appearance: Normal appearance. He is well-developed. HENT: Head: Normocephalic and atraumatic. Mouth/Throat: Mouth: Mucous membranes are moist. Pharynx: No oropharyngeal exudate or posterior oropharyngeal erythema. Eyes: General: No scleral icterus. Conjunctiva/sclera: Conjunctivae normal. Pupils: Pupils are equal, round, and reactive to light. Cardiovascular: Rate and Rhythm: Normal rate and regular rhythm. Pulses: Normal pulses. Heart sounds: Normal heart sounds. Pulmonary: Effort: Pulmonary effort is normal. Musculoskeletal: General: Normal range of motion. Cervical back: No tenderness. Right lower leg: No edema. Left lower leg: No edema. Lymphadenopathy: Cervical: No cervical adenopathy. Skin: General: Skin is warm and dry. Neurological: Mental Status: He is alert and oriented to person, place, and time. Psychiatric: Thought Content: Thought content normal. Judgment: Judgment normal. Last Recorded Vitals There were no vitals taken for this visit. Results Review {Vanishing Link Review Results :[id number] I have reviewed the latest lab and imaging results. Assessment & Plan Malignant neoplasm of head of pancreas (CMS/HCC) Pancreatic cyst 64 y.o. male presenting with WOPN for cystgastrostomy stent removal Medically Ready for Discharge: [1] Current Outpatient Medications Medication Sig Dispense Refill atorvastatin (Lipitor) 80 MG tablet Take 1 tablet (80 mg) by mouth 1 (one) time each day. gabapentin (Neurontin) 600 MG tablet Take 0.5 tablets (300 mg) by mouth every night. glipiZIDE (Glucotrol) 10 MG tablet Take 0.5 tablets (5 mg) by mouth 2 (two) times a day before meals. levothyroxine (Synthroid) 150 MCG tablet Take 1 tablet (150 mcg) by mouth 1 (one) time each day before breakfast. losartan (Cozaar) 100 MG tablet Take 1 tablet (100 mg) by mouth 1 (one) time each day. Magnesium Oxide -Mg Supplement 420 (252 Mg) MG tablet metFORMIN XR (Glucophage-XR) 500 MG 24 hr tablet Take 4 tablets (2,000 mg) by mouth. TAKE FOUR TABLETS BY MOUTH DAILY FOR BLOOD SUGAR metoprolol tartrate (Lopressor) 100 MG tablet Take 0.5 tablets (50 mg) by mouth 2 (two) times a day. omeprazole (PriLOSEC) [address] capsule Take 1 capsule (20 mg) by mouth twice a day. sertraline (Zoloft) 100 MG tablet Take 0.5 tablets (50 mg) by mouth 1 (one) time each day. traMADol (Ultram) 50 MG tablet Take 2 tablets (100 mg) by mouth 3 (three) times a day if needed formoderate pain. No current facility-administered medications for this encounter. * Ina Irving RN - 12/22/2024 9:04 AM EDT Images from the original note were not included. [id number] Endoscopy Unit: Caring for Yourself after an Esophogastroduodenoscopy (EGD) What precautions do I need to take after my procedure? You will get a medicine that makes you sleep during treatment. It may affect you for the next 24 hours. ? Do not drive or go home alone. Someone must be with you until you get home. ? For 24 hours, do not make legal decisions, drive, or use dangerous equipment. ? You may continue taking your home medicines, unless your doctor tells you otherwise. When can I eat or drink? You may eat your normal diet, unless otherwise told by your doctor. Start with a small amount of bland foods and add other foods as tolerated. Spicy or greasy foods may cause nausea. How active can I be? You should move around as you are able. Do your normal activities if you feel you can. Sexual activity is fine, unless your doctor tells you otherwise. How do I find out my biopsy results? If you had a biopsy, it may take 7-10 days for results. These will be available in the patient portal, [facility]. Or you can call the doctor who ordered your procedure. When should I call the doctor? Call 911 right away or go to the nearest emergency department if you have any of these: ? Difficulty breathing ? Severe pain in the throat ? Severe pain in the chest or belly ? Vomiting that does not go away ? Fever of 101??F or higher ? Redness or tenderness of the IV site that lasts longer than 48 hours ? Any other symptoms that concern you These may be related to a complication and need medical attention. If you do not tell your doctor, the problem may get worse. Our contact information: For the Endoscopy Provider, call and ask for the Endoscopy Fellow on-call. * Sury JiménezKATHERINE - Ina Adams RN - 12/22/2024 9:04 AM EDT Images from the original note were not included. [id number] Anesthesia: Monitored Anesthesia Care (MAC) You?re going to have surgery. During surgery, you?ll be given medicine called anesthesia. This willkeep you comfortable and pain-free. Your surgeon will use monitored anesthesia care (MAC). This sheet tells you more about this type of anesthesia. What is monitored anesthesia care? MAC keeps you very drowsy during surgery. You may be awake, but you likely won't remember much. Andyou won?t feel pain. With MAC, medicines are given through an IV (intravenous) line into a vein in your arm or hand. A local anesthetic will also be injected into the skin and muscle around the surgical site to numb it. The anesthesia provider monitors you during the procedure. They check your heart rate and rhythm, blood pressure, and blood oxygen level. What to expect during your procedure You'll likely have: ? A pulse oximeter. This is a small device put on the end of your finger. This measures your blood oxygen level. ? Electrocardiography leads (electrodes). These are sticky pads put on your chest. They attach to wires. These lead to a device that records your heart rate and rhythm. ? Medicines given through an IV. These relax you and prevent pain. You may be awake or sleep lightly. If you have local anesthetic, it's injected directly into your skin. ? A face mask. This is to give you oxygen. This may be done if needed. Possible risks MAC has some risks. These include: ? Breathing problems ? Upset stomach (nausea) and vomiting ? Allergic reaction to the anesthetic Anesthesia safety Tips for anesthesia safety include: ? Follow all instructions for not eating or drinking before your procedure. ? Tell your healthcare provider all prescription and zoiq-ucm-lqwxusk medicines you take. Tell themif you use any anti-inflammatory medicine or blood thinners. This includes aspirin. Tell them if you take any vitamins, herbs, or other supplements. ? Have an adult family member or friend drive you home after the procedure. For the first 24 hours after your surgery: ? Don't drive or use heavy equipment. ? Don't make important decisions or sign documents. ? Don't drink alcohol. ? Have someone stay with you, if possible. They can watch for problems and help keep you safe. Last Reviewed Date: 2023 00:00:00 ?? [id number] [employer]. All rights reserved. This information is not intended as a substitute for professional medical care. Always follow your healthcare professional's instructions. documented in this encounter Plan of Treatment Not on file documented as of this encounter Goals Goal Patient Goal Type Associated Problems Recent Progress Patient-Stated? Author Autogenerat ed Goal Care Plan Autogenerated Problem No Selma Faulkner documented as of this encounter Procedures Procedure Name Priority Date/Time Associated Diagnosis Comments POCT GLUCOSE METER UNSOLICITED RESULTS Routine 12/22/2024 10:27 AM EDT EGD Routine 12/22/2024 10:04 AM EDT Malignant neoplasm of head of pancreas (CMS/HCC) Pancreatic cyst POCT GLUCOSE METER UNSOLICITED RESULTS Routine 12/22/2024 9:17 AM EDT documented in this encounter Results * (ABNORMAL) POCT glucose meter (12/22/2024 10:27 AM EDT) POCT Glucose 110(H) 74 - 99 mg/dL 12/22/2024 10:29 AM EDT [facility] Comment:Accuracy of a glucos e result obtained from a capillary whole blood specimen relies upon adequate, non-compromised capillary blood flow. If the capillary glucose result is not consistent with the patient's clinical signs and symptoms, glucose testing should be repeated with either an arterial or venous sample on the glucometer or sent to the main labortory for testing. Comment 12/22/2024 10:29 AM EDT [facility] Satellite Installation Technician ID Holly Gonzalez 025 10:29 AM EDT [facility] Device ID [id number] 12/22/2024 10:29 AM EDT [facility] Specimen Type POC Capillary 12/22/2024 10:29 AM EDT [facility] Blood Capillary blood specimen / Unknown 12/22/2024 10:27 AM EDT 12/22/2024 10:29 AM EDT Nilesh Balderrama MD LAB POINT OF CARE TE ST DOCKED DEVICE UNSOLICITED RESULTS Final Result Performing Organization Address City/State/[facility] Co de Phone Number [facility]ALTH[facility]ARE [facility] [address] [place] [address] * EGD w Necrosectomy (12/22/2024 10:04 AM EDT) Anatomical Region Laterality Modality Endoscopy Narrative 12/22/2024 2:42 PM EDT Table formatting from the original result was not included. Impression: The previously placed cystgastrostomy plastic stents were seen in the stomach. Both stents removed using rat-tooth forceps. Exam was otherwise unremarkable. Post Procedure Diagnosis None Recommendations Discharge to Home Indication Malignant neoplasm of head of pancreas (CMS/HCC), Pancreatic cyst Medications See anesthesia record for anesthesia administered medications. Staff Staff Role Tina Marcus MD Anesthesiologist Shirley Vanegas, RN Endo Nurse Nilesh Balderrama MD Proceduralist Kelley Hebert Endo Manager Chemical [place], Alfredo S, LEAD GAME DESIGNER LEAD GAME DESIGNER Preprocedure A history and physical has been performed, and patient medication allergies have been reviewed. The patient's tolerance of previous anesthesia has been reviewed. The risks and benefits of the procedure and the sedation options and risks were discussed with the patient. All questions were answered and informed consent obtained. Details of the Procedure The patient underwent monitored anesthesia care, which was administered by an anesthesia professional. The patient's blood pressure, heart rate, level of consciousness, oxygen saturation and respirations were monitored throughout the procedure. The scope was introduced through the mouth and advanced to the second part of the duodenum. Retroflexion was performed in the cardia. The patient experienced no blood loss. The procedure was not difficult. The patient tolerated the procedure well. There were no apparent adverse events. Attestation I personally performed the entire procedure Specimens No specimens were documented in this log. Findings The previously placed cystgastrostomy plastic stents were seen in the stomach. Both stents removed using rat-tooth forceps. Exam was otherwise unremarkable. us Nilesh Balderrama MD GI PROCEDURE ORDERABLES Lora dillard Result * (ABNORMAL) POCT glucose meter (12/22/2024 9:17 AM EDT) POCT Glucose 116(H) 74 - 99 mg/dL 12/22/2024 9:24 AM EDT [facility] Comment:Accuracy of a glucos e result obtained from a capillary whole blood specimen relies upon adequate, non-compromised capillary blood flow. If the capillary glucose result is not consistent with the patient's clinical signs and symptoms, glucose testing should be repeated with either an arterial or venous sample on the glucometer or sent to the main labortory for testing. Comment 12/22/2024 9:24 AM EDT [facility] Satellite Installation Technician ID Gregorio Kraus 12/22/2024 9:24 AM EDT [facility] Device ID [id number] 12/22/2024 9:24 AM EDT [facility] Specimen Type POC Capillary 12/22/2024 9:24 AM EDT [facility] Blood Capillary blood specimen / Unknown 12/22/2024 9:17 AM EDT 12/22/2024 9:24 AM EDT us Nilesh Balderrama MD LAB POINT OF CARE TE ST DOCKED DEVICE UNSOLICITED RESULTS Final Result [facility] [address] [place] [address] documented in this encounter Visit Diagnoses Diagnosis Malignant neoplasm of head of pancreas (CMS/HCC) Malignant neoplasm of head of pancreas Pancreatic cyst Cyst and pseudocyst of pancreas documented in this encounter Administered Medications Inactive Administered Medications - up to 3 most recent administrations Medication Order MAR Action Action Date Dose Rate Site heparin flush (porcine) 100 UNIT/ML injection 500 Units 500 Units, Intracatheter, Once, 1 dose, On Wed12/22/24 at 1115, STAT, Recovery(Phase II-Outpatient)/On Unit(Inpatient) Given 12/22/2024 10:43 AM EDT 500 Units documented in this encounter Additional Health Concerns Active Problems Noted Date Diagnosed Date Autogenerated Problem 12/18/2024 Assessment Noted Time A fall risk assessment has been complete d for the patient 06/14/2024 10:53 AM EST A Body Mass Index follow-up plan has been documented for the patient 06/14/2024 11:10 AM EST documented as of this encounter Care Teams Guest Relations Officer Relationship Specialty Start Date End Date Pcp, No [address] [place] [address] PCP - General Family Medicine 05/25/24 documented as of this encounter
--- OUTSIDE RECORDS SUMMARY | 2024-12-22 09:54 | XMS_ITS | Encounter Summary ---
Author Organization Healthcare Address [address] [id number] Care Team Providers Care Supervisor Telephone Answering Service Name Role Phone Pcp, No Primary Care Provider Unavailabl e Encounter Details Date Type Department Care Team (Late st Contact Info) Description 12/22/2024 9:54 AM EDT Anesthesia Event [facility] [address] [place] [address] Tina Marcus MD [address] [place] [phone] Anesthesia Record Procedure Summary Procedure Name Responsible Anesthesiologist Anesthesia Start Time Anesthesia Stop Time EGD Tina Marcus MD 12/22/24 0954 1009 Events Date Time Event Comment 12/22/2024 0920 0953 An Start Data 0954 An Start The patient was reevaluated immediately before sedation and remains eligible for anesthesia plan. 0954 In Room 0957 An Induction The patient was reevaluated immediately before moderate or deep sedation use and before anesthesia induction. 0958 Anesthesia Ready 0959 Proc Start 1001 Proc Fin 1004 Out of Room 1005 an stop data 1009 Handoff to Receiving I compl eted my handoff to the receiving clinician during which we: 1. Identified the patient 2. Identified the responsible provider 3. Reviewed the pertinent medical history 4. Discussed the surgical course 5. Reviewed intra-op anesthesia management and issues during anesthesia 6. Set expectations for post-procedure period 7. Allowed opportunity for questions and acknowledgement of understanding. 1009 An Stop Meds Name Total lidocaine PF (Xylocaine-MPF) 2% 80 mg propofol (Diprivan) injection 10 mg/mL 2 00 mg levoFLOXacin (Levaquin) 500 mg in 100 mL (premix) 500 mg lactated Ringer's infusion 200 mL * Agents Name O2 * Blood No blood administrations on file. Lines, Drains, and Airways Type Details Placement Removal Single Lumen Implantable Port 12/22/24; 0940; Yes; Yes; Left; Chest 12/22/24 0940 by Ina Adams RN documented in this encounter Social History Tobacco [...] week 05/31/2024 How often do you attend [facility] or [facility] services? Never 05/31/2024 Do you belong to any clubs o r organizations such as gnosticist groups, unions, fraternal or athletic groups, or [...] more drinks on one occasion? Never 05/31/2024 [facility] [place] [facility] - Occupational Stress [...] any time in the past 12 m [facility], were you homeless or living in a skilled nursing (including now)? No 05/31/2024 Utilities Answer Date [...] on file documented as of this encounter Miscellaneous Notes * Anesthesia Postprocedure Evaluation - Alfredo Crooks CRNA - 12/22/2024 10:09 AM EDT Patient: Roberth Morales Anesthesia Type: general Vitals Value Taken Time BP 102/73 12/22/24 10:09 Temp 97.6 12/22/24 10:09 Pulse 94 12/22/24 10:08 Resp 12 12/22/24 10:09 SpO2 100 % 12/22/24 10:08 Vitals shown include unfiled device data. Anesthesia Post Evaluation Patient location during evaluation: PACU Patient participation: complete - patient participated Level of consciousness: awake Pain management: adequate (pain score 0-3) Airway patency: natural airway Cardiovascular status: acceptable Respiratory status: acceptable and nasal cannula Hydration status: acceptable Nausea/Vomiting: No No notable events documented. * Anesthesia Preprocedure Evaluation - Tina Marcus MD - 12/22/2024 9:20 AM EDT HPI Roberth Morales is a 64 y.o. male who presents for EGD Last had an ERCP 05/2024 Difficult Airway: No Final Airway Type: endotracheal airway Mask Difficulty Assessment: 2 - vent by mask + OA or adjuvant +/- NMBA Final Endotracheal Airway: ETT Cuffed: Yes Cormack-Lehane Classification: grade I - full view of glottis Technique Used For Successful Placement: direct laryngoscopy Devices/Methods Used in Placement: intubating stylet Insertion Site: oral Blade Type: Ferris Blade Size: 2 ETT Size (mm): 7.5 Number of Attempts at Approach: 1 Number of Other Approaches Attempted: 1 Past Medical History: Diagnosis Date DMII (diabetes mellitus, type 2) (CMS/HCC) GERD (gastroesophageal reflux disease) HLD (hyperlipidemia) HTN (hypertension) Hypothyroidism JENNY (obstructive sleep apnea) Pancreatic cancer (CMS/HCC) Family History Problem Relation Name Age of Onset Anesthesia problems Neg Hx Malig Hyperthermia Neg Hx Social History Tobacco Use Smoking status: Every Day Current packs/day: 1.00 Average packs/day: 1 pack/day for 45.5 years (45.5 ttl pk-yrs) Types: Cigarettes Start date: 06/14/1979 Smokeless tobacco: Never Vaping Use Vaping status: Never Used Substance Use Topics Alcohol use: Not Currently Drug use: Never SURGICAL HISTORY: Past Surgical History: Procedure Laterality Date CHOLECYSTECTOMY HERNIA REPAIR LUMBAR SPINE SURGERY OTHER SURGICAL HISTORY EUS with biopsy PORTACATH PLACEMENT 05/23/2024 Allergies Allergen Reactions Semaglutide(0.25 Or 0.5mg-Dos) Other - please document in the comment field PANCREATITIS MEDICATIONS: Current Outpatient Medications: atorvastatin, Take 1 tablet (80 mg) by mouth 1 (one) time each day. gabapentin, Take 0.5 tablets (300 mg) by mouth every night. glipiZIDE, Take 0.5 tablets (5 mg) by mouth 2 (two) times a day before meals. levothyroxine, Take 1 tablet (150 mcg) by mouth 1 (one) time each day before breakfast. losartan, Take 1 tablet (100 mg) by mouth 1 (one) time each day. Magnesium Oxide -Mg Supplement, metFORMIN XR, Take 4 tablets (2,000 mg) by mouth. TAKE FOUR TABLETS BY MOUTH DAILY FOR BLOOD SUGAR metoprolol tartrate, Take 0.5 tablets (50 mg) by mouth 2 (two) times a day. omeprazole, Take 1 capsule (20 mg) by mouth twice a day. sertraline, Take 0.5 tablets (50 mg) by mouth 1 (one) time each day. traMADol, Take 2 tablets (100 mg) by mouth 3 (three) times a day if needed for moderate pain. ROS Anesthesia: Date of last anesthetic: Port placement 05/23/24 history of previous anesthesia and obstructive sleep apnea (does not tolerate machine). Does not have a history of anesthetic complications and PONV. Cardiovascular: hyperlipidemia. Does not have angina, atrial fibrillation, CAD, CHF, dyspnea, dysrhythmias, murmur,pacemaker, past SC or syncope. hypertension: Exercise tolerance is 1 flight of stairs. Does not have chest pain. Respiratory: Patient has no dyspnea.no asthma: no COPD: Has not had an upper respiratory infection in last 30 days. Has not had bronchitis in the last 30 days, pneumonia in the last 30 days or COVID in the last 30 days. Neurological: no seizures: Did not have a cerebrovascular accident.Does not have TIA. Musculoskeletal: Does not have cervical spine limited mobility. [facility] [place] additional comments: + Able to lay flat without difficulty Integumentary: Negative skin ROS. Gastrointestinal: GERD: poorly controlled.GI malignancy (pancreatic adenocarcinoma). Does not have cirrhosis. obese. Genitourinary: Does not have renal disease. Hematological/Lymphatic: History of no DVT. History of no pulmonary embolism. no history of chemotherapy no history of radiation Does not have HIV, MRSA or tuberculosis. Hem/Lymph ROS additional comments: S/p port placement Endocrine/Metabolic: diabetes mellitus type 2.well controlled. fasting glucose in low 100s thyroid disorder (Hypothyroidism). Lab Results Component Value Date WBC 12.66 (H) 06/14/2024 HGB 11.3 (L) 06/14/2024 HCT 35.5 (L) 06/14/2024 MCV 86 06/14/2024 PLT 389 (H) 06/14/2024 Lab Results Component Value Date GLUCOSE 205 (H) 06/14/2024 BUN 8 06/14/2024 CREATININE 0.89 06/14/2024 BCR 9 06/14/2024 NA 138 06/14/2024 K 4.5 06/14/2024 CL 102 06/14/2024 CO2 22 06/14/2024 ALBUMIN 4.1 06/14/2024 ALKPHOS 417 (H) 06/14/2024 BILITOT 3.5 (H) 06/14/2024 No results found for: HGBA1C Lab Results Component Value Date INR 1.5 (H) 05/29/2024 In CE labs from 01/01/24: Sodium 136 - 146 meq/L 137 Potassium 3.5 - 5.1 meq/L 3.8 Chloride 102 - 112 meq/L 107 CO2 21 - 32 meq/L 27 Anion Gap 9 - 20 7 Low BUN 7 - 22 mg/dL 2 Low Creatinine 0.70 - 1.30 mg/dL 0.49 Low BUN/Creatinine 8 - 20 4 Low Glucose 74 - 106 mg/dL 94 Calcium 8.4 - 10.1 mg/dL 8.2 Low Osmolality Calc 269.8 eGFR (mL/min/1.73m2) >=60 mL/min/1.73m2 >60 eGFR of <60 suggests chronic kidney disease if found over a 3 monthperiod of time. eGFR <15 indicates renal failure. WBC 4.2 - 9.1 K/??L 7.0 RBC 4.63 - 6.08 M/??L 4.36 Low Hemoglobin 13.7 - 17.5 GM/DL 12.0 Low Hematocrit 40.1 - 51.0 % 37.0 Low MCV 79 - 92 fL 85 MCH 25.7 - 32.2 pg 27.5 MCHC 32.3 - 36.5 GM/DL 32.4 RDW 11.6 - 14.4 % 13.7 Platelets 140 - 375 K/CU MM 371 Visit Vitals BP (P) 112/89 (BP Location: Left arm, Patient Position: Lying) Pulse (P) 94 Temp (P) 36.4 ??C (97.5 ??F) (Temporal) Resp (P) 12 Ht (P) 1.778 m (5' 10 ) Wt (P) 82.4 kg (181 lb 10.5 oz) SpO2 (P) 100% BMI (P) 26.07 kg/m?? Smoking Status Every Day BSA (P) 2.02 m?? Physical Exam Airway Mallampati: II Mouth opening: normal TM distance: <3 FB Neck ROM: full Cardiovascular Rhythm: regular Rate: normal Dental Pulmonary Breath sounds clear to auscultation Neurological Oriented: normal to time, normal to place and normal to person Skin Skin: warm Musculoskeletal Extremities Other findings: Multiple teeth missing and chipped, poor dentition Anesthesia Plan ASA 3 Plan was reviewed with: PRIMER CHARGER Anesthesia technique(s) discussed with the patient/family: general Anesthesia plan agreed upon was: general Comment: Anesthetic plan and risks discussed with patient and spouse. Tina Marcus MD Additional Equipment Requests Airway Detail Review Displaying the 20 most recent records Date Procedure Difficult Airway Blade Size ETT Size C-L Class Final Type 05/25/24 EUS (UPPER) No 4 7.5 grade I - full view of glottis endotracheal airway documented in this encounter Plan of Treatment Not on file documented as of this encounter Goals Goal Patient Goal Type Associated Problems Recent Progress Patient-Stated? Author Autogenerat ed Goal Care Plan Autogenerated Problem No Selma Faulkner documented as of this encounter Visit Diagnoses Not on filedocumented in this encounter Administered Medications Inactive Administered Medications - up to 3 most recent administrations Medication Order MAR Action Action Date Dose Rate Site lactated Ringer's infusion Intravenous, Continuous PRN, Starting on Wed12/22/24 at 0954, Until Wed12/22/24 at 1009, Routine New Bag 12/22/2024 9:54 AM EDT levoFLOXacin (Levaquin) IVPB Intravenous, As needed, Starting on Wed12/22/24 at 0959, Until Wed12/22/24 at 1009, Administer over 60 Minutes, Routine Given 12/22/2024 9:59 AM EDT 500 mg lidocaine PF (Xylocaine) 2 % injection Intravenous, As needed, Starting on Wed12/22/24 at 0957, Until Wed12/22/24 at 1009, Routine, Anesthesia Intraprocedure Given 12/22/2024 9:57 AM EDT 80 mg propofol (Diprivan) injection Intravenous, As needed, Starting on Wed12/22/24 at 0957, Until Wed12/22/24 at 1009, Routine, Anesthesia Intraprocedure Given 12/22/2024 9:59 AM EDT 100 mg Given 12/22/2024 9:57 AM EDT 100 mg documented in this encounter Additional Health Concerns Active Problems Noted Date Diagnosed Date Autogenerated Problem 12/18/2024 Assessment Noted Time A fall risk assessment has been complete d for the patient 06/14/2024 10:53 AM EST A Body Mass Index follow-up plan has been documented for the patient 06/14/2024 11:10 AM EST documented as of this encounter Care Teams Supervisor Telephone Answering Service Relationship Specialty Start Date End Date Pcp, [place] [address] PCP - General Family Medicine 05/25/24 documented as of this encounter
--- NOTE | 2025-01-17 23:39 | CT_ITS ---
PROCEDURE INFORMATION: Exam: CT Head Without And With Contrast Exam date and time: 01/18/2025 12:40 AM Age: 64 years old Clinical indication: Other: Incontinent; Additional info: Known cancer now incontinent TECHNIQUE: Imaging protocol: Computed tomography of the head without and with contrast. Radiation optimization: All CT scans at this facility use at least one of these dose optimization techniques: automated exposure control; mA and/or kV adjustment per patient size (includes targeted exams where dose is matched to clinical indication); or iterative reconstruction. Contrast material: ISOVUE; Contrast volume: 50 ml; Contrast route: IV; COMPARISON: CT HEAD/BRAIN WO CON 09/01/2024 4:59 PM FINDINGS: Brain: Age related atrophic changes in the brain. No mass effect or midline shift. No intracranial hemorrhage. No intracranial edema. No evidence of acute territorial ischemia. No significant white matter disease. Cerebral ventricles: There is a normal-variant cavum septum pellucidum. Paranasal sinuses: No acute findings. No fluid levels. Mastoid air cells: No significant mastoid effusion. Bones: No acute fracture. Soft tissues: No acute findings. IMPRESSION: No acute intracranial findings.
--- NOTE | 2025-01-17 23:39 | CT_ITS ---
PROCEDURE INFORMATION: Exam: CT Abdomen And Pelvis With Contrast Exam date and time: 01/18/2025 12:46 AM Age: 64 years old Clinical indication: Other: Stool incontinent; Additional info: Known cancer now stool incontinent TECHNIQUE: Imaging protocol: Computed tomography of the abdomen and pelvis with contrast. Radiation optimization: All CT scans at this facility use at least one of these dose optimization techniques: automated exposure control; mA and/or kV adjustment per patient size (includes targeted exams where dose is matched to clinical indication); or iterative reconstruction. Contrast material: ISOVUE; Contrast volume: 75 ml; Contrast route: IV; COMPARISON: CT ABDOMEN PELVIS W CON 09/01/2024 5:03 PM FINDINGS: Lungs: There are few linear densities at the right lung base consistent with atelectasis and/or scarring. Heart: There is a small pericardial effusion. Liver: There are numerous peripherally enhancing hypodense lesions scattered throughout the liver which could represent small abscesses or metastatic lesions. Gallbladder and biliary ducts: There is severe biliary ductal dilation. A biliary wall stent is in place. The gallbladder is absent. Pancreas: There is diffuse enlargement of the pancreatic head. No ductal dilation. Spleen: Normal. No splenomegaly. Adrenal glands: Bilateral adrenal hyperplasia is noted. Kidneys and ureters: Normal. No hydronephrosis. Stomach and bowel: Unremarkable. No obstruction. No mucosal thickening. Appendix: No evidence of appendicitis. Intraperitoneal space: Unremarkable. No free air. No significant fluid collection. Vasculature: There is moderate calcific atherosclerotic disease. There is no aneurysm or dissection. Lymph nodes: Unremarkable. No enlarged lymph nodes. Urinary bladder: Unremarkable as visualized. Reproductive: The prostate gland is enlarged. Bones/joints: There are severe degenerative changes of the spine. No acute fracture. Soft tissues: A tiny fat containing umbilical hernia is noted. IMPRESSION: 1. New significant biliary ductal dilation despite the presence of a biliary wall stent. The findings are likely secondary to obstruction at the level of the stent. 2. Diffuse enlargement of the pancreatic head, which is new since the prior study, consistent with neoplasm or pancreatitis. No pancreatic ductal dilation. 3. Multiple small rim enhancing hypodense hepatic lesions either representing small abscesses or metastatic disease. 4. Other nonemergent findings as noted.
[2025-01-17 23:51] VITALS: BP 125/84; PULSE 133; RESP 20; TEMP 36.6; O2SAT 98; BMI 21.7
--- NOTE | 2025-01-17 23:51 | HMH.EDGENADL ---
Discharge Plan Disposition Patient Disposition: Xfer Short-Term Hosp Condition: Serious Prescriptions Prescriptions: No Action Reguloid (psyllium husk) 3 gram/5.4 gram powder 1 tsp PO DAILY atorvastatin 80 mg tablet 80 mg PO HS 90 Days Qty: 90 omeprazole 20 mg capsule,delayed release(DR/EC) 20 mg PO BID 90 Days Qty: 90 metoprolol tartrate 100 mg tablet 100 mg PO DAILY 90 Days Qty: 90 gabapentin 600 mg tablet 300 mg PO HS Qty: 30 2RF magnesium oxide 420 mg tablet 420 mg PO DAILY sertraline 100 mg tablet 50 mg PO DAILY potassium chloride 10 mEq tablet extended release 10 meq PO TID losartan 100 mg tablet 100 mg PO DAILY fluticasone propionate 50 mcg/actuation spray,suspension 2 spray INTRANASAL DAILY metformin 500 mg tablet extended release 24 hr 1,000 mg PO BID loratadine 10 mg tablet 10 mg PO DAILY Jardiance 25 mg tablet 25 mg PO DAILY levofloxacin 750 mg tablet 750 mg PO DAILY 5 Days Qty: 5 0RF levothyroxine 25 mcg capsule 50 mcg PO DAILY Qty: 30 0RF Referrals Follow up/Referrals: Olive Cooney APRN [Primary Care Provider, Family Practice] - See instructions Clinical Impressions Clinical Impression: Metastatic cancer, Hypokalemia, Transaminitis, Diarrhea Sepsis Qualifiers: Sepsis type: sepsis due to unspecified organism Sepsis acute organ dysfunction status: with acute organ dysfunction Severe sepsis acute organ dysfunction type: acute renal failure Acute renal failure type: unspecified Severe sepsis shock status: without septic shock Qualified Code(s): A41.9 - Sepsis, unspecified organism Stand Alone Forms Stand Alone Forms: Transfer Record - ED Instructions Patient Instructions: DI for Diarrhea and Traveler's Diarrhea -- Adult, DI for Diarrhea and Traveler's Diarrhea -- Child, DI for Nausea -- Adult, DI for Nausea -- Child Print Language Print Language: Mongolian Discharge ED Provider: Dillan Yang Adult HPI General Chief complaint: Nausea/Vomiting/Diarrhea Stated complaint: pancreatic cancer,loss of bowel control,not eating Time Seen by Provider: 01/17/25 23:39 History of Present Illness HPI narrative: 64-year-old male with active pancreatic cancer not currently undergoing treatment secondary to treatment intolerance presents to the ER with concerns of diarrhea, loss of bowel control, poor appetite, generalized weakness. For the last week patient has been having diarrhea that he cannot control, he states he is chronically using stool, he describes it as black and tarry in color. He has been having to wear briefs because of the oozing. He reports no new abdominal pain, no yellowing of the skin or eyes, no chest pain or difficulty breathing, he does report dysuria but no hematuria, No fevers or chills, no headache or dizziness, reportedly no new numbness, tingling, or weakness. Patient reports chronic back pain for which he is on tramadol. Reports no saddle anesthesia or new neurologic deficits. Related Data Home Medications ?Medication ?Instructions ?Recorded ?Confirmed atorvastatin 80 mg tablet 80 mg PO HS 90 days ##90 01/27/18 09/02/24 metoprolol tartrate 100 mg tablet 100 mg PO DAILY 90 days ##90 01/27/18 09/02/24 omeprazole 20 mg capsule,delayed 20 mg PO BID 90 days ##90 01/27/18 09/02/24 release empagliflozin 25 mg tablet 25 mg PO DAILY 12/26/23 09/02/24 (Jardiance) fluticasone propionate 50 2 spray intranasal DAILY 12/26/23 09/02/24 mcg/actuation nasal spray,suspension loratadine 10 mg tablet 10 mg PO DAILY 12/26/23 09/02/24 losartan 100 mg tablet 100 mg PO DAILY 12/26/23 09/02/24 Held on 09/03/24. Instructions: Resume on 09/10/24. Your blood pressure has been stable without this medication. [facility]. magnesium oxide 420 mg tablet 420 mg PO DAILY 12/26/23 09/02/24 metformin 500 mg tablet,extended 1,000 mg PO BID 12/26/23 09/02/24 release 24 hr potassium chloride 10 mEq 10 meq PO TID 12/26/23 09/02/24 tablet,extended release sertraline 100 mg tablet 50 mg PO DAILY 12/26/23 09/02/24 psyllium husk 3 gram/5.4 gram oral 1 tsp PO DAILY 01/05/24 09/02/24 powder (Reguloid (psyllium husk)) Previous Rx's ?Medication ?Instructions ?Recorded gabapentin 600 mg tablet 300 mg (1/2 x 600 mg) PO HS #30 02/16/24 tabs levofloxacin 750 mg tablet 750 mg PO DAILY 5 days #5 tabs 09/03/24 levothyroxine 25 mcg capsule 50 mcg (2 x 25 mcg) PO DAILY #30 09/03/24 caps Allergies Allergy/AdvReac Type Severity Reaction Status Date / Time No Known Allergies Allergy Verified 02/16/24 08:52 [facility] Disclaimer: The information contained in this section may have been updated after the patient was seen, as this information can be updated by other users. Medical History Exposure to COVID-19 virus Cholecystitis HLD (hyperlipidemia) HTN (hypertension) Back pain Diabetes Surgical History H/O hernia repair Previous back surgery Family History Other Arthritis Family history of cancer Family history of diabetes mellitus type II Heart disease Social History Smoking Status: Current some day smoker tobacco type: cigarettes packs per day: 1 alcohol intake: never counseling provided: none substance use type: denies use current occupational status: other Travel in the last 8 weeks?: None housing: house Have you lived/traveled outside US in past 30 days?: No Contact w/someone who lives/traveled outside US past 30 days?: No Exposure to someone with infectious disease in past 14 days?: No Do you have a fever (greater than 100.4 F or 38 C)?: No Have you tested positive for COVID-19?: No Exposed to someone with COVID-19 in past 14 days?: No Do you have a sore throat?: No Do you have a cough?: No Do you have any weakness?: No Do you have any diarrhea?: Yes Are you experiencing any unusual bleeding?: No Do you have any muscle aches/pain?: No Do you have any abdominal pain?: No Are you experiencing loss of taste or smell?: No Other Medical History Have you received the Flu Vaccine for this season: No Have you received the Pneumonia Vaccine: No ROS Obtained: Yes Systems reviewed as appropriate & no additional complaints except as documented per HPI Physical Exam General General appearance: alert and in no apparent distress Comment: chronically ill appearing, disheveled, poorly kept with feces on his hands and feet Head Head exam: atraumatic and normocephalic Eye Eye exam: Present PERRL, EOMI and jaundice (mild scleral jaundice) ENT ENT exam: Present mucous membranes moist Neck Neck exam: Present normal inspection and full ROM Chest Chest inspection: Present symmetric chest wall rise; Absent tenderness Respiratory Respiratory exam: Present normal lung sounds bilaterally; Absent respiratory distress, wheezes or stridor Cardiovascular Cardiovascular exam: Present normal rhythm and tachycardia Abdominal Exam Abdominal exam: Present soft; Absent distention, tenderness, guarding or rebound Rectal Exam Rectal exam: Present normal inspection and normal rectal tone comment: dark stool Extremities Exam Extremities exam: Present full ROM; Absent edema Back Exam Back exam: Absent tenderness Neurological Exam Neurological exam: Present alert and oriented X3; Absent motor sensory deficit (no focal deficit, general weakness) Psychiatric Psychiatric exam: Present normal affect and normal mood Skin Skin exam: Present warm and dry Medical Decision Making Medical Records Medical records reviewed: Yes I reviewed the patient's medical records. Screening: Per USPSTF and CDC recommendations, given the prevalence of disease in our region, it is our hospital?s policy to screen for HIV and viral Hepatitis for all patients aged 18 and over and those with ongoing risk factors. MR Comment: Reviewed discharge summary from 09/03/2024, patient's most recent admission to this facility. At that time he had presented with nausea and diarrhea while on chemo for pancreatic adenocarcinoma. Patient had pancolitis, leukocytosis, ALEC acutely affecting his hospitalization. He was treated with Zosyn while inpatient and discharged on Levaquin. Ang Inquiry Pt receiving controlled substance: No Vital Signs: 01/17/25 23:51 01/18/25 01:01 01/18/25 01:31 Temperature 98 F Temperature Source Oral Pulse Rate 104 H 98 H Pulse Rate [Left] 133 H Respiratory Rate 20 Blood Pressure 109/70 L 96/49 L Blood Pressure [Right Arm] 125/84 Blood Pressure Mean [Right Arm] 97 Blood Pressure Source [Right Arm] Automatic Cuff Blood Pressure Position [Right Arm] Sitting 02 Sat by Pulse Oximetry 98 98 99 Oxygen Delivery Method Room Air 01/18/25 02:00 01/18/25 02:31 Temperature Temperature Source Pulse Rate 87 98 H Pulse Rate [Left] Respiratory Rate Blood Pressure 109/55 L 139/76 Blood Pressure [Right Arm] Blood Pressure Mean [Right Arm] Blood Pressure Source [Right Arm] Blood Pressure Position [Right Arm] 02 Sat by Pulse Oximetry 100 99 Oxygen Delivery Method Lab Data Lab Results 01/17/25 23:58: WBC 22.5 H*, RBC 3.68 L, Hgb 10.1 L, Hct 27.2 L, MCV 73.9 L, MCH 27.4, MCHC 37.1 H, RDW 14.0, Plt Count 370, MPV 9.8, Neut % (Auto) 82.9 H, Lymph % (Auto) 9.6 L, Dale % (Auto) 6.0, Eos % (Auto) 0.0 L, Baso % (Auto) 0.1, Neut # (Auto) 18.6 H, Lymph # (Auto) 2.2, Dale # (Auto) 1.3 H, Eos # (Auto) 0.0, Baso # (Auto) 0.0, Sodium 128 L, Potassium 2.9 L*, Chloride 93 L, Carbon Dioxide 24, Anion Gap 13.9, BUN 16, Creatinine 0.80, Estimated Creat Clear 76, Estimated GFR 97, Est GFR ( Amer) 117, Glucose 141 H, Lactate 4.2 H, Calcium 9.3, Total Bilirubin 5.5 H, AST 82 H, ALT 55, Alkaline Phosphatase 1092 H, Total Protein 6.9 D, Albumin 3.1 L, Globulin 3.8 H, Albumin/Globulin Ratio 0.8 L, Lipase 38 01/18/25 00:24: Stool Occult Blood Negative 01/17/25 23:58 01/17/25 23:58 Orders (Tests/Meds): ED MEDICATIONS Generic Name Dose Route Start Last Admin Trade Name Freq PRN Reason Stop Dose Admin Miscellaneous 1 each 01/18/25 00:15 Vancomycin Consult Request NOTAPPLIC 02/17/25 00:14 CONSULT PHARM[facility]Y [facility] Discontinued Medications Generic Name Dose Route Start Last Admin Trade Name Freq PRN Reason Stop Dose Admin Lactated Ringer's 1,000 mls @ 999 mls/hr 01/17/25 23:39 01/18/25 00:07 Lactated Ringer's 1000 Ml Bag IV 01/18/25 00:39 999 mls/hr .Q1H1M ONE Administration Piperacillin Sod/Tazobactam 100 mls @ 200 mls/hr 01/18/25 00:14 01/18/25 00:56 Sod 4.5 gm/ Sodium Chloride IV 01/18/25 00:43 200 mls/hr ONCE ONE Administration Lactated Ringer's 1,160 mls @ 999 mls/hr 01/18/25 00:14 01/18/25 00:57 Lactated Ringer's 1000 Ml Bag IV 01/18/25 01:23 999 mls/hr .Q1H10M ONE Administration Vancomycin/PEG/NADA/Lysine/Water 1.25 gm in 250 mls @ 125 mls/hr 01/18/25 00:30 Vancomycin 1.25gm/250ml (Peg) Premix IV 01/18/25 02:29 ONCE ONE Vancomycin/PEG/NADA/Lysine/Water 1.75 gm in 350 mls @ 125 mls/hr 01/18/25 00:30 01/18/25 01:41 Vancomycin 1.75gm/350ml (Peg) Premix IV 01/18/25 03:17 125 mls/hr ONCE ONE Administration Iopamidol 125 ml 01/18/25 00:44 01/18/25 00:45 Iopamidol-370 (76%);100ml Bottle IV 01/18/25 00:45 125 ml ONCE ONE Administration Potassium Chloride 40 meq 01/18/25 00:24 01/18/25 00:56 Potassium Chloride 20meq Tab PO 01/18/25 00:25 40 meq ONCE ONE Administration Sodium Chloride 10 ml 01/18/25 00:44 01/18/25 00:45 Sodium Chloride 0.9% 10ml Syr (Rad Only) IV 01/18/25 00:45 10 ml ONCE ONE Administration ORDERS Category Date Time Status CT abdomen pelvis w con Stat Cat Scan 01/17/25 23:[address] cervical spine wo con Stat Cat Scan 01/17/25 23:[address] head/brain wo/w con Stat Cat Scan 01/17/25 23:[address] lumbar spine wo con Stat Cat Scan 01/17/25 23:[address] thoracic spine wo con Stat Cat Scan 01/17/25 23:54 Completed CBC w/Auto Diff [Complete Blood Count Auto Diff] Stat Lab 01/17/25 23:58 Completed CMP [Comprehensive Metabolic Panel] Stat Lab 01/17/25 23:58 Completed Diarrhea 6-11 Panel, Cdiff PCR Stat Lab 01/18/25 00:07 Ordered Lactic Acid Stat Lab 01/17/25 23:58 Completed Lipase Stat Lab 01/17/25 23:58 Completed Occult Blood,Stool Stat Lab 01/18/25 00:24 Completed Prealbumin Stat Lab 01/18/25 00:07 Received Rapid PCR Covid and Flu A/B Stat Lab 01/18/25 02:09 Received Urinalysis and Microscopic Stat Lab 01/17/25 23:39 Ordered Blood Culture Stat Micro 01/18/25 01:03 Received Tissue Perfus/Sepsis Re-Eval Sepsis Re-Evaluation Performed: Yes Date Performed: 01/18/25 Time Performed: 02:00 Medical Decision Narrative: In summary, this 64-year-old male with comorbidities described in the HPI not at goal therapy presents to the emergency department today with bowel incontinence, diarrhea, generalized weakness, poor appetite. On initial evaluation patient is mildly tachycardic but otherwise hemodynamically stable, afebrile, GCS 15, no focal neurologic deficits, patient does not have any areas of tenderness anywhere in the body, he is very disheveled and poorly kempt, feces on the hands and feet, mild scleral jaundice appreciated. Differential diagnosis includes but is not limited to failure to thrive, malnutrition, electrolyte abnormality, dehydration, metastatic cancer, with patient's new incontinence I considered the possibility of new cancerous lesion affecting the brain or spinal cord though patient does not have other deficits indicative of this, also considered the possibility of viral syndrome, colitis, bacterial infection, with dark stool I considered the possibility of GI bleed, anemia, coagulopathy, patient is also complaining of dysuria and I considered urinary tract infection. Ruling out the most morbid conditions drove my assessment. Based on my concerns I ordered serum labs, CT imaging, stool studies, urine studies. Patient received IV fluids initially. Labs personally reviewed demonstrate significant leukocytosis WBC 22.5 which makes patient meet sepsis criteria with tachycardia, suspected source of diarrhea/intra-abdominal, and significant leukocytosis. Additional IV fluids and antibiotics were ordered. Anemia improved from last hospitalization, normal platelets, neutrophilia with left shift, CMP demonstrates hypokalemia being repleted orally, patient also has hyponatremia and hypochloremia, significant hyperbilirubinemia with bilirubin now 5.5 up from 0.5 at the time patient was most recently admitted to our facility a few months ago. He also has a new significant elevation in alkaline phosphatase up to over 1000 from previously 107. Lactic elevated at 4.2 further supporting sepsis. Lipase normal. Stool occult blood negative. CT imaging personally interpreted demonstrate worsening metastatic disease in the abdomen including worsening pancreatic mass, biliary duct changes, numerous hepatic lesions. I do not appreciate neoplastic lesion through the spine or new neoplastic lesion in the brain. See radiology reads for final interpretations. On reassessment patient's tachycardia has improved, he is resting more comfortably. I reviewed lab and imaging results with the patient and family including that his cancer appears to have progressed and is causing significant lab changes. [facility] and would [facility] to be admitted there which I believe is reasonable since his cancer team is there. [facility] to [facility] and I spoke with Dr. Velazco, the hospitalist. We reviewed lab and imaging results. She agrees to take the patient as a transfer but asked me to explicitly tell the patient and his family that they are concerned the progression of his disease is killing him and to tell them directly that he is likely dying of his disease. I appreciate her recommendations. I again spoke with the family and updated them on the plan for transfer. I explained to them very clearly that the [facility] is concerned he is dying from his cancer and that they are not sure there is going to be much for them to be able to fix during this hospitalization but that they will at the very least try to make him more comfortable and manage his symptoms. They understand and are agreeable to this. Patient requires ALS transfer for continued cardiac monitoring since he is septic with electrolyte abnormalities and still has medications running. Immediately prior to transfer patient was reassessed and continues to be ill but stable, no longer tachycardic, heart rate is currently in the upper 90s. Airway patent, GCS 15. Appropriate for transfer at this time. Patient was transferred via ALS ambulance in serious but currently stable condition. Critical Care Critical Care Time Critical Care Time: Yes Attestation: On 01/17/25, the high probability of a clinically significant, sudden or life threatening deterioration of the following system(s) required my full and direct attention, intervention and personal management. The time I documented below is in addition to time spent performing reported procedures but includes the following listed in this critical care notation. Total Time Total Critical Care Time: 50
--- NOTE | 2025-01-17 23:54 | CT_ITS ---
PROCEDURE INFORMATION: Exam: CT Lumbar Spine Without Contrast Exam date and time: 01/18/2025 12:36 AM Age: 64 years old Clinical indication: Other: Incontinent; Additional info: Known cancer now incontinent TECHNIQUE: Imaging protocol: Computed tomography of the lumbar spine without contrast. Radiation optimization: All CT scans at this facility use at least one of these dose optimization techniques: automated exposure control; mA and/or kV adjustment per patient size (includes targeted exams where dose is matched to clinical indication); or iterative reconstruction. COMPARISON: CT THORACIC SPINE WO CON 01/18/2025 12:34 AM FINDINGS: Bones/joints: No acute fracture. Normal alignment. Severe degenerative disc disease noted L4-L5 with moderate degenerative disc disease at L1-L2, L2-L3 and L5-S1. There is severe facet arthropathy at L4-L5 with moderate facet arthropathy at the remaining levels. There is moderate central canal stenosis at L3-L4 and L4-L5 secondary to disc bulge prominent facet arthropathy and ligamentum flavum thickening. There is jphx-zz-rlhqtora bilateral foraminal stenosis at L4-L5 with severe right and moderate to severe left foraminal stenosis at L5-S1. Soft tissues: Unremarkable. IMPRESSION: 1. No acute lumbar spine fracture. No neoplastic process is evident. 2. Moderate central canal stenosis at L3-L4 and L4-L5. 3. Suqc-iw-asvukitc bilateral foraminal stenosis at L4-L5. Severe right and ttnirfno-cx-wxzscu left foraminal stenosis at L5-S1.
--- NOTE | 2025-01-17 23:54 | CT_ITS ---
PROCEDURE INFORMATION: Exam: CT Thoracic Spine Without Contrast Exam date and time: 01/18/2025 12:34 AM Age: 64 years old Clinical indication: Other: Incontinent; Additional info: Known cancer now incontinent TECHNIQUE: Imaging protocol: Computed tomography of the thoracic spine without contrast. Radiation optimization: All CT scans at this facility use at least one of these dose optimization techniques: automated exposure control; mA and/or kV adjustment per patient size (includes targeted exams where dose is matched to clinical indication); or iterative reconstruction. COMPARISON: CT CERVICAL SPINE WO CON 01/18/2025 12:32 AM FINDINGS: Bones/joints: No acute fracture. Normal alignment. Diffuse moderate to severe degenerative disc disease. No significant disc bulge or herniation. No severe spinal canal stenosis. No significant neural foraminal narrowing. Soft tissues: Unremarkable. IMPRESSION: No acute thoracic spine fracture. No significant central canal or foraminal stenosis. No neoplastic process is evident.
--- NOTE | 2025-01-17 23:54 | CT_ITS ---
PROCEDURE INFORMATION: Exam: CT Cervical Spine Without Contrast Exam date and time: 01/18/2025 12:32 AM Age: 64 years old Clinical indication: Other: Incontinent; Additional info: Known cancer now incontinent TECHNIQUE: Imaging protocol: Computed tomography of the cervical spine without contrast. Radiation optimization: All CT scans at this facility use at least one of these dose optimization techniques: automated exposure control; mA and/or kV adjustment per patient size (includes targeted exams where dose is matched to clinical indication); or iterative reconstruction. COMPARISON: CT ANGIO CHEST PE PROTOCOL 09/01/2024 5:03 PM FINDINGS: Bones: No acute fracture. Facets are normally aligned. Straightening of the normal cervical lordosis. Gpzb-et-xjoowcit multilevel degenerative disc disease with posterior disc osteophyte complex at C3-C4 and C4-C5 producing mild central canal stenosis. Lungs: No acute findings in the visualized lung apices. Soft tissues: No acute findings. IMPRESSION: 1. No acute fracture. 2. Straightening of the normal cervical lordosis. 3. Multilevel degenerative disc disease with mild associated central canal stenosis at C3-C4 and C4-C5.
[2025-01-18] VITALS (7 sets, daily range): BP systolic 96–139; BP diastolic 49–76; PULSE 87–104; RESP 18; TEMP 36.6; O2SAT 96–100
[2025-01-18] MEDS: LACTATED RINGERS 1000ML 1,000 ML 999 ML IV (00:07)
[2025-01-18 00:10] LABS: Hematocrit 27.2 % (42.0-52.0); Hemoglobin 10.1 g/dL (14.1-18.0); Immature Granulocytes % 1.4 %; Mean Corpuscular HGB Conc 37.1 g/dL (31.8-35.4); Mean Corpuscular Hemoglobin 27.4 pg (27.0-31.2); Mean Corpuscular Volume 73.9 fl (80-94); Nucleated Red Blood Cells % 0 %; Platelet Count 370 K/mm3 (142-424); Red Blood Count 3.68 M/mm3 (4.60-6.20); Red Cell Distribution Width-SD 35.7 fL; White Blood Count 22.5 K/mm3 (4.8-10.8)
--- OUTSIDE RECORDS SUMMARY | 2025-01-18 00:12 | XMS_ITS | Encounter Summary ---
Author Organization Healthcare Address [address] [place] [address] Care Team Providers Care [employer] Name Role Phone Pcp, No Primary Care Provider Unavailabl e Oralia Dailey RADIOGRAPHER ANGIOGRAM Unavailable Unavailable Encounter Details Date Type Department Care Team (Late st Contact Info) Description 05/29/2024 Orders Only External Location [address] [place] [address] Calvin Palacios MD [address] [place] [address] [place] [address] Social History Tobacco Use Types Packs/Day Years Used Date Smoking Tobacco: Every Day Cigarettes Smokeless Tobacco: Never Alcohol Use Standard Drinks/Week [...] often do you attend chur ch or protestant services? Never 05/31/2024 Do you belong to any clubs o r organizations such as roman catholic groups, unions, fraternal or athletic groups, or [...] more drinks on one occasion? Never 05/31/2024 [facility] - Occupational [...] any time in the past [facility], were you homeless or living in a detention (including now)? No 05/31/2024 Utilities Answer Date Recorded In the past 12 months has [employer], gas, oil, or water company threatened to shut off services in your home? No 05/31/2024 Sex and Gender Information Value Date Recorded Sex Assigned at Not on file Legal Sex Male 6:55 PM EDT Gender Identity Not on file Sexual Orientation Not on file documented as of this encounter Functional Status * AUDIT-C Score Answer Date of Assessment Author 0 05/31/2024 10:25 AM Wild Brown * Question Answer Date of Assessment Author Q1: How often do you have a drink containing alcohol? Never 05/31/2024 10:25 AM Wild Brown Q2: How many drinks containing alcohol do you have on a typical day when you are drinking? Patient does not drink 05/31/2024 10:25 AM Wild Brown Q3: How often do you have six or more drinks on one occasion? Never 05/31/2024 10:25 AM Wild Brown * Calculated C-SSRS Risk Score (Lifetime/Recent) Answer Date of Assessment Author No Risk Indicated 05/31/2024 8:49 PM Beth Stiles RN * Question Answer Date of Assessment Author 1. Wish to be (Past 1 Month) No 024 8:49 PM Beth Stiles RN 2. Non-Specific Active Suici reese Thoughts (Past 1 Month) No 05/31/2024 8:49 PM Sophie Stiles RN 6. Suicidal Behavior (Lifetime) No 8:49 PM Beth Stiles RN documented as of this encounter Plan of Treatment Not on file documented as of this encounter Procedures Procedure Name Priority Date/Time Associated Diagnosis Comments CT OUTSIDE IMAGES 05/29/2024 12:17 PM EST documented in this encounter Results * CT OUTSIDE IMAGES (05/29/2024 12:17 PM EST) Anatomical Region Laterality Modality Computed Tomogra phy 05/29/2024 12:1 7 PM EST Calvin Palacios MD IMG CT PROCEDURES Final Result documented in this encounter Visit Diagnoses Not on filedocumented in this encounter Additional Health Concerns Infection Onset Date Last Indicated Resolved Time C. difficile Rule-Out 06/03/2024 06/03/20242023 5:43 PM EST Gastrointestinal Rule-Out 06/03/2024 06/03/2024 7:00 PM EST Assessment Noted Time A Body Mass Index follow-up plan has been documented for the patient 06/03/2024 5:14 PM EST documented as of this encounter Care Teams [employer] Relationship Specialty Start Date End Date Pcp, [facility] [address] [place] [address] PCP - General Family Medicine 05/25/24 Oralia Dailey LPN VALUE[employer]ED [place] [address] TCM Nurse 06/06/24 07/06/24 documented as of this encounter
--- OUTSIDE RECORDS SUMMARY | 2025-01-18 00:12 | XMS_ITS | Encounter Summary ---
Author Organization Healthcare Address [address] [place] [address] Care Team Providers Care Wage Hand Name Role Phone Pcp, No Primary Care Provider Unavailabl e Oralia Dailey MONITOR WORKER Unavailable Unavailable Encounter Details Date Type Department Care Team (Late st Contact Info) Description 05/10/2024 Orders Only External Location [address] [place] [address] Provider, External Social History Tobacco Use Types Packs/Day Years Used Date Smoking Tobacco: Never Assessed Sex and Gender Information Value Date Recorded Sex Assigned at Not on file Legal Sex Male 6:55 PM EDT Gender Identity Not on file Sexual Orientation Not on file documented as of this encounter Plan of Treatment Not on file documented as of this encounter Procedures Procedure Name Priority Date/Time Associated Diagnosis Comments CT ABDOMEN OUTSIDE IMAGES 05/10/2024 11:43 AM EDT documented in this encounter Results * CT ABDOMEN OUTSIDE IMAGES (05/10/2024 11:43 AM EDT) Anatomical Region Laterality Modality Computed Tomogra phy 05/10/2024 11:4 3 AM EDT External Provider IMG CT PROCEDURES Final Result documented in this encounter Visit Diagnoses Not on filedocumented in this encounter Additional Health Concerns Infection Onset Date Last Indicated Resolved Time C. difficile Rule-Out 06/03/2024 06/03/20242023 5:43 PM EST Gastrointestinal Rule-Out 06/03/2024 06/03/2024 7:00 PM EST documented as of this encounter Care Teams Wage Hand Relationship Specialty Start Date End Date Pcp, No [address] [place] [address] PCP - General Family Medicine 05/25/24 Oralia Dailey, MONITOR WORKER VALUE[employer]ED [place] [address] TCM Nurse 06/06/24 07/06/24 documented as of this encounter
--- OUTSIDE RECORDS SUMMARY | 2025-01-18 00:12 | XMS_ITS | Clinical Summary ---
Author Organization Healthcare Address [address] [id number] Care Team Providers Care Center Customer Service Associate Name Role Phone Pcp, No Primary Care Provider Unavailabl e Allergies Active Allergy Reactions Criticality Noted Date Comments Semaglutide(0.25 Or 0.5mg-Dos) Other - please document in the comment field High 01/18/2024 PANCREATITIS Medications atorvastatin (Lipitor) 80 MG tablet Take 1 tablet by mouth 1 time each day. 11/19/2023 Active gabapentin (Neurontin) 600 MG tablet Take 0.5 tablets (300 mg) by mouth every night. 12/20/2023 Active glipiZIDE (Glucotrol) 10 MG tablet Take 0.5 tablets by mouth 2 times a day before meals. 05/02/2024 Active levothyroxine (Synthroid) 150 MCG tablet Take 1 tablet by mouth daily before breakfast. 05/09/2024 Active losartan (Cozaar) 100 MG tablet Take 1 tablet (100 mg) by mouth 1 (one) time each day. 12/16/2023 Active metoprolol tartrate (Lopressor) 100 MG tablet Take 0.5 tablets (50 mg) by mouth 2 (two) times a day. 11/25/2023 Active omeprazole (PriLOSEC) [address] capsule Take 1 capsule by mouth twice a day. 12/21/2023 Active sertraline (Zoloft) 100 MG tablet Take 0.5 tablets by mouth daily. 11/19/2023 Active traMADol (Ultram) 50 MG tablet Take 2 tablets by mouth 3 times a day as needed for moderate pain. 05/03/2024 Active Magnesium Oxide -Mg Supplement 420 (252 Mg) MG tablet 10/06/2023 Active metFORMIN XR (Glucophage-XR) 500 MG 24 hr tablet Take 4 tablets by mouth. TAKE FOUR TABLETS BY MOUTH DAILY FOR BLOOD SUGAR 05/25/2024 Active Active Problems Problem Noted Date Diagnosed Date Obstructive jaundice 06/14/2024 Assessment & Plan (06/14/2024 11:25 AM EST): - GI was consulted who performed ERCP on 06/01/24 with sphincterotomy and stent placed in CBD. Subsequent labs showed improvement in all liver enzymes and bilirubin. - Ciprofloxacin 500mg daily for 3 days was given for post-procedure prophylaxis (last dose on 06/04/24) - Patient has medical oncology follow up with Dr. Liao on 06/23/2024 at [facility]. -Starts Chemo treatment on 06/21/24 -PCP appointment 06/23/24 @ [facility] on [address] Hyponatremia 06/14/2024 Assessment & Plan (06/14/2024 10:49 AM EST): - serum osmolality 280 - likely multifactorial in the setting of hyperglycemia, hyperlipidemia. Unclear if there is a concurrent SIADH as urine osmolality and urine sodium were elevated. Also with poor PO intake recently which would indicate low solute intake. -will obtain sodium labs today to follow up -Will reach out to patient concerning lab results and will make further adjust to treatment plan at that time if warranted. Hyperlipidemia 06/14/2024 Assessment & Plan (06/14/2024 11:28 AM EST): - LDL 455 - Hold statin until liver enzymes normalize - Consider starting PCSK-9 inhibitor in outpatient setting -Patient will follow up with PCP 06/23/24 for further management Pancreatitis, necrotizing 05/30/2024 Encounters Date Type Department Care Team Description 12/22/2024 9:54 AM EDT Anesthesia Event [facility] [address] [place] [address] Tina Marcus MD 12/22/2024 8:54 AM EDT - 12/22/2024 11:59 PM EDT Hospital Encounter [facility] [address] [place] [address] Nilesh Balderrama MD Lowery, Marcie R, RN Malignant neoplasm of head of pancreas (CMS/HCC); Pancreatic cyst Discharge Disposition: Home or Self Care 12/22/2024 Travel 12/15/2024 11:59 PM EDT Anesthesia Event [facility] [address] [place] [address] Bud Manzanares DO 11/09/2024 Orders Only [facility] [address] [place] [address] Duke Fagan Malignant neoplasm of head of pancreas (CMS/HCC) (Primary Dx); Pancreatic cyst from Last 3 Months Immunizations Immunization Administration Dates Next Due Influenza, Unspecified 06/18/2017,2015,07/11/2015,04/12,04/18/2012,08/27/2011,05/09/2010 Influenza, injectable, quadr ivalent, preservative free 06/24/2023,05/02/2021,11/07/2020,09/20 Influenza, seasonal, injectable 08/11/2018 Pneumococcal 20-eliane Conj Vaccine 04/10/2022 Pneumococcal Polysaccharide PPV23 06/18/2017 Pneumococcal, Unspecified 02/23/2012 TD (adult), 2 Lf tetanus tox oid, preservative free, adsorbed 09/19/1996 Td (adult), 5 Lf tetanus tox oid, preservative free, adsorbed 02/23/2019 Td (adult), unspecified 07/19/2007 Tdap 07/19/2007 Zoster, Recombinant 12/01/2018,08/11/2018 Family History Medical History Relation Name Comments Anesthesia problems Neg Hx Malig Hyperthermia Neg Hx Social History Tobacco Use Types Packs/Day Years [...] 05/31/2024 How often do you attend chur or amish services? Never 05/31/2024 Do you belong to any clubs o r organizations such as jew groups, unions, fraternal or athletic groups, or [...] more drinks on one occasion? Never 05/31/2024 [facility] - [...] any time in the past 12 m [facility], were you homeless or living in a care home (including now)? No 05/31/2024 Utilities Answer Date Recorded In the past 12 months has th e electric, gas, oil, or water company threatened to shut off services in your home? No 05/31/2024 Sex and Gender Information Value Date Recorded Sex Assigned at Not on file Legal Sex Male 6:55 PM EDT Gender Identity Not on file Sexual Orientation Not on file Last Filed Vital Signs Vital Sign Reading [...] Mass Index 26.07 12/22/2024 9:18 AM EDT Plan of Treatment Health Maintenance Due Date Last Done Comments [facility]-Depression Screening 1959 [facility]-Infant/Child/Adol SDOH Screenings 1959 CT Colonography 2004 Colonoscopy 2004 FIT-DNA 2004 FIT 2004 FOBT 2004 Sigmoidoscopy 2004 [facility]-Colorectal Cancer Screening 2004 [facility]-Lung Cancer Screening 2009 [facility]-RSV Vaccine: 60+ Years or (1 - Risk 60-74 years 1-dose series) 2019 [facility]-Abdominal Aortic Aneurysm (AAA) Screening 2024 [facility]- SDOH Screenings 11/28/2024 [facility]-Adult SDOH Screenings 11/28/2024 05/31/2024 [id number] Vaccine ( - season) 2025 07/07/2024, 06/24/2023, 05/21/2021, Additional history exists [facility]-Influenza Vaccine (#1) 03/19/202507/07, 06/24/2023, 05/02/2021, Additional history exists [facility]-DTaP,Tdap,and Td Vaccines (4 - Td or Tdap) 02/23/2029 02/23/2019, 07/19/2007, 07/19/2007, Additional history exists [facility]-Zoster Vaccines Completed 12/01/2018, 9 [facility]-Pneumococcal Vaccine: 50+ Years Completed 04/10/2022, 06/18/2017, 02/23/2012 [facility]-Hepatitis C Screening Completed 05/29/2024 [facility]-Obesity Intervention Completed 06/14/2024, 05/19 HPV Vaccines Aged Out No longer eligi ble based on patient's age to complete this topic [facility]-HIB Vaccines Aged Out No longer e ligible based on patient's age to complete this topic [facility]-Hepatitis A Vaccines Aged Out No longer eligible based on patient's age to complete this topic [facility]-IPV Vaccines Aged Out No longer e ligible based on patient's age to complete this topic [facility]-Rotavirus Vaccines Aged Out No lo nger eligible based on patient's age to complete this topic Goals Goal Patient Goal Type Associated Problems Recent Progress Patient-Stated? Author Autogenerat ed Goal Care Plan Autogenerated Problem No [employer] Implanted Type Area Counselor Manager Device Identifier Shelf Expiration Date Model / Serial / Lot Stent Biliary 2.3 X 50mm - [id number] Implanted:Qty: 1 on 05/25/2024 by Nilesh Balderrama MD at [facility] [id number] 01/02/2027 [id number] / / [id number] Stent Viabil Nit 10 X 80mm - [id number] Implanted:Qty: 1 on 06/01/2024 by Emely Cerda RN at [facility] [id number] 03/27/2027 [id number] / [id number] / [id number] Procedures Procedure Name Priority Date/Time Associated Diagnosis Comments POCT GLUCOSE METER UNSOLICITED RESULTS Routine 12/22/2024 10:27 AM EDT EGD Routine 12/22/2024 10:04 AM EDT Malignant neoplasm of head of pancreas (CMS/HCC) Pancreatic cyst POCT GLUCOSE METER UNSOLICITED RESULTS Routine 12/22/2024 9:17 AM EDT HEPATITIS C ANTIBODY - ED W/REFLEX TO HCV QUANT PCR STAT 05/29/2024 9:58 PM EST from Last 3 Months or Most Recently Relevant to Health Maintenance Results * (ABNORMAL) POCT glucose meter (12/22/2024 10:27 AM EDT) Only the most recent of2 resultswithin the time period is included. POCT Glucose 110(H) 74 - 99 mg/dL 12/22/2024 10:29 AM EDT [facility] Comment:Accuracy of a glucos e result [...] for testing. Comment 12/22/2024 10:29 AM EDT [facility] Bag Loader ID Lisa Holly [id number] 10:29 AM EDT [facility] Device ID [id number] 12/22/2024 10:29 AM EDT [facility] Specimen Type POC Capillary 12/22/2024 10:29 AM EDT [facility] Blood Capillary blood specimen / Unknown 12/22/2024 10:27 AM EDT 12/22/2024 10:29 AM EDT Nilesh Balderrama MD LAB POINT OF CARE TE ST DOCKED DEVICE UNSOLICITED RESULTS Final Result Performing Organization Address City/State/[facility] Co de Phone Number [facility]ALTHCARE [facility] [address] [place] [phone] * EGD w Necrosectomy (12/22/2024 10:04 AM [...] Staff Role Tina Marcus MD Anesthesiologist Shirley Vangeas RN Endo Nurse Nilesh Balderrama MD Proceduralist Kelley Hebert Endo Nurse Aide Evaluator Alfredo Crooks CRNA CRNA Preprocedure A history and physical has been [...] using rat-tooth forceps. Exam was otherwise unremarkable. Nilesh Balderrama MD GI PROCEDURE ORDERABLES Lora l Result * Hepatitis C Antibody - ED (05/29/2024 9:58 PM EST) Hepatitis C Antibody Negative Negative 05/29/2024 10:36 PM EST [facility] Blood Venous blood specimen / Unknown Venipuncture / Unknown 05/29/2024 9:58 PM EST 05/29/2024 10:05 PM EST Chichi Valladares MD LAB BLOOD ORDERABLES Final Resul t [facility] [address] [place] [address] from Last 3 Months or Most Recently Relevant to Health Maintenance Additional Health Concerns Active Problems Noted Date Diagnosed Date Autogenerated Problem 12/18/2024 Insurance MEDICARE [facility] Advance Directives * Full Code (Latest Code Status on File) Date Activated Date Inactivated Comments 05/30/2024 1:39 AM 06/03/2024 7:48 PM Question Answer Comments Patient has decision-making capacity? Yes Care Teams Center Customer Service Associate Relationship Specialty Start Date End Date Pcp, No [address] [place] [address] PCP - General Family Medicine 05/25/24
--- OUTSIDE RECORDS SUMMARY | 2025-01-18 00:12 | XMS_ITS | Encounter Summary ---
Author Organization Healthcare Address [address] [id number] Care Team Providers Care Byproducts Pump Operator Name Role Phone Pcp, No Primary Care Provider Unavailabl e Encounter Details Date Type Department Care Team (Latest Contact Info) Description 12/22/2024 Travel Social History Tobacco Use Types Packs/Day Years [...] often do you attend chur ch or mandaen services? Never 05/31/2024 Do you belong to any clubs o r organizations such as faith groups, unions, fraternal or athletic groups, or [...] more drinks on one occasion? Never 05/31/2024 [facility] [place] [facility] - Occupational Stress [...] any time in the past 12 m [facility], were you homeless or living in a penitentiary (including now)? No 05/31/2024 Utilities Answer Date [...] documented as of this encounter Care Teams Byproducts Pump Operator Relationship Specialty Start Date End Date Pcp, No [address] [place] [address] PCP - General Family Medicine 05/25/24 documented as of this encounter
--- OUTSIDE RECORDS SUMMARY | 2025-01-18 00:12 | XMS_ITS | Encounter Summary ---
Author Organization Healthcare Address [address] [place] [address] Care Team Providers Care Set Up Person Name Role Phone Pcp, No Primary Care Provider Unavailabl e Oralia Dailey LPN Unavailable Unavailable Encounter Details Date Type Department Care Team (Late st Contact Info) Description 04/24/2024 Orders Only External Location [address] [place] [address] Provider, External Social History Tobacco Use Types [...] Procedure Name Priority Date/Time Associated Diagnosis Comments MR OUTSIDE IMAGES 04/24/2024 4:46 PM EDT documented in this encounter Results * MR transfer of outside films (04/24/2024 4:46 PM EDT) Anatomical Region Laterality Modality Magnetic Resonan ce 04/24/2024 4:46 PM EDT us External Provider IMG MRI PROCEDURES Final Resul t documented in this encounter Visit Diagnoses Not on filedocumented in this encounter Additional Health Concerns Infection Onset Date Last Indicated Resolved Time C. difficile Rule-Out 06/03/2024 06/03/20242023 5:43 PM EST Gastrointestinal Rule-Out 06/03/2024 06/03/2024 7:00 PM EST documented as of this encounter Care Teams Set Up Person Relationship Specialty Start Date End Date Pcp, No [address] [place] [address] PCP - General Family Medicine 05/25/24 Oralia Dailey HOG BUYER VALUE-[place] [address] TCM Nurse 06/06/24 07/06/24 documented as of this encounter
--- OUTSIDE RECORDS SUMMARY | 2025-01-18 00:12 | XMS_ITS | Encounter Summary ---
Author Organization Healthcare Address [address] [place] [address] Care Team Providers Care Grips Name Role Phone Pcp, No Primary Care Provider Unavailabl e Oralia Dailey LPN Unavailable Unavailable Encounter Details Date Type Department Care Team (Late st Contact Info) Description 04/24/2024 Orders Only External Location [address] [place] [address] Provider, External Social History Tobacco Use Types [...] documented as of this encounter Care Teams Grips Relationship Specialty Start Date End Date Pcp, No [address] [place] [address] PCP - General Family Medicine 05/25/24 Oralia Dailey TIME CLOCK REPAIRER VALUE[employer] [address] TCM Nurse 06/06/24 07/06/24 documented as of this encounter
--- OUTSIDE RECORDS SUMMARY | 2025-01-18 00:12 | XMS_ITS | Encounter Summary ---
Author Organization Healthcare Address [address] [place] [address] Care Team Providers Care Email Operations Manager Name Role Phone Pcp, No Primary Care Provider Unavailabl e Encounter Details Date Type Department Care Team (Late st Contact Info) Description 09/07/2024 Orders Only External Location [address] [place] [address] Provider, External Social History Tobacco Use Types [...] week 05/31/2024 How often do you attend [facility] or bahai services? Never 05/31/2024 Do you belong to any clubs o r organizations such as muslim groups, unions, fraternal or athletic groups, or [...] more drinks on one occasion? Never 05/31/2024 [facility] [place] [facility] Occupat ional Health - Occupational Stress [...] any time in the past 12 m onths, were you homeless or living in a senior living (including now)? No 05/31/2024 Utilities Answer Date Recorded In the past 12 months has e electric, gas, oil, or water company [...] Date/Time Associated Diagnosis Comments CT OUTSIDE IMAGES 09/07/2024 2:20 PM EST documented in this encounter Results * CT OUTSIDE IMAGES (09/07/2024 2:20 PM EST) Anatomical Region Laterality Modality Computed Tomogra phy 09/07/2024 2:20 PM EST us External Provider IMG CT PROCEDURES Final Result documented in this encounter Visit Diagnoses Not on filedocumented in this encounter Additional Health Concerns Assessment Noted Time A fall risk assessment has been complete d for the patient 06/14/2024 10:53 AM EST A Body Mass Index follow-up plan has been documented for the patient 06/14/2024 11:10 AM EST documented as of this encounter Care Teams Email Operations Manager Relationship Specialty Start Date End Date Pcp, No [address] [place] [address] PCP - General Family Medicine 05/25/24 documented as of this encounter
--- OUTSIDE RECORDS SUMMARY | 2025-01-18 00:13 | XMS_ITS | Clinical Summary ---
Author Organization [employer] ([place], [place], [place], [place]) Address [address] [place] [address] Care Team Providers Care Auto Damage Insurance Appraiser Name Role Phone Mckenna Diallo PA-C Primary Care Provider [phone] Allergies No known active allergies Medications empagliflozin (JARDIANCE) 25 mg tablet Take 1 tablet (25 mg total) by mouth daily. 12/25/2023 Active loratadine (CLARITIN) 10 mg tablet Take 1 tablet (10 mg total) by mouth daily. 12/17/2023 Active metoprolol tartrate (LOPRESSOR) 100 MG tablet Take 1 tablet (100 mg total) by mouth daily. 11/26/2023 Active omeprazole (PriLOSEC) 20 MG capsule Take 1 capsule (20 mg total) by mouth 2 (two) times daily. 12/21/2023 Active sertraline (ZOLOFT) 100 MG tablet Take 0.5 tablets (50 mg total) by mouth daily 50 mg daily. 11/19/2023 Active atorvastatin (LIPITOR) 80 MG tablet Take 1 tablet (80 mg total) by mouth nightly. 11/19/2023 Active bisacodyL (DULCOLAX) 5 mg EC tablet Take 1 tablet (5 mg total) by mouth daily as needed for Constipation. 12/26/2023 Active fluticasone propionate (FLONASE) 50 mcg/actuation nasal spray 1 spray by Nasal route daily. 12/17/2023 Active gabapentin (NEURONTIN) 600 MG tablet Take 0.5 tablets (300 mg total) by mouth nightly. Max Daily Amount: 300 mg Active metFORMIN (GLUCOPHAGE-XR) 500 MG 24 hr tablet Take 2 tablets (1,000 mg total) by mouth 2 (two) times daily. Active losartan (COZAAR) 100 MG tablet Take 0.5 tablets (50 mg total) by mouth daily Start with half a tablet and if BP steadily in normal range can advance to full tablet at 100 mg. 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 No 12/29/2023 Food Insecurity Answer Date Recorded Within the past 12 months, y ou worried that your food would run out before you got money to buy more. Never true 12/29/2023 Within the past 12 months, t he food you bought just didn't last and you didn't have money to get more. Never true 12/29/2023 Transportation Needs Answer Date Record ed In the past 12 months, has l ack of reliable transportation kept you from medical appointments, meetings, work or from getting things needed for daily living? No 12/29/2023 Financial Resource Strain Answer Date R ecorded How hard is it for you to pa y for the very basics like food, housing, medical care, and heating? Would you say it is: Somewhat hard 12/29/2023 Employment Answer Date Recorded Do you want help finding or keeping work or a job? I do not need or want help 12/29/2023 Family and Community Support Answer Ralph e Recorded If for any reason you need h elp with day-to-day activities such as bathing, preparing meals, shopping, managing finances, etc., do you get the help you need? I get all the help I need 12/29/2023 Feeling Lonely or Isolated 0 12/28 Educational Attainment Answer Date Facundo rded Do you speak a language other than Slovenian at ho me? No 12/29/2023 Do you want help with school or training? For example, starting or completing job training or getting a high school diploma, GED or equivalent. No 12/29/2023 Physical Activity Answer Date Recorded Number of minutes of exercise per week 0 12/29/2023 Substance Use Answer Date Recorded How many times in the past y ear have you used prescription drugs for non-medical reasons? Never 12/29/2023 How many times in the past year have you used [place] legal drugs? Never 12/29/2023 Sex and Gender Information Value Date Recorded Sex Assigned at Not on file Legal Sex Male 12:02 PM CDT Gender Identity Not on file Sexual Orientation Not on file Last Filed Vital Signs Vital Sign Reading Time Taken Comments Blood Pressure 141/83 01/01/2024 9:40 AM EDT Pulse 83 01/01/2024 9:40 AM EDT Temperature 36.6 C (97.9 F) 01/01/2024 9:40 AM EDT Respiratory Rate 17 12/31/2023 8:40 PM EDT Oxygen Saturation 96% 01/01/2024 9:40 AM EDT Inhaled Oxygen Concentration - - Weight 101.2 kg (223 lb) 12/29/2023 5:36 PM EDT Height 182.9 cm (6') 12/29/2023 5:36 PM EDT Body Mass Index 30.24 12/29/2023 5:36 PM EDT Plan of Treatment Health Maintenance Due Date Last Done Comments CT Colonography 1959 Colonoscopy 1959 Colorectal Cancer Screening 1959 Diabetic Kidney Health Evalu ation (KED) 1959 FOBT/FIT 1959 Fit-DNA (Cologuard) 1959 Sigmoidoscopy 1959 Diabetic Eye Exam 1969 Tobacco Cessation Counseling and Screening (12+) 1971 HIV Screening 1974 Hepatitis C Screening 1977 Lipid Panel 1994 DTAP/TDAP/TD VACCINES (2 - T d or Tdap) 09/19/2006 09/19/1996 Shingles Vaccine (Zoster) (1 of 2) 2009 Hemoglobin A1C 12/29/2023 COVID-19 VACCINE ( season) 2024 06/24/2023, 05/21/2021, 09/25/2020 Abdominal Aortic Aneurysm (A AA) Screen 2024 Falls Risk Screening 07/19/2024 Influenza Vaccine (Season Ended) 2025 Respiratory Syncytial Virus (RSV) Adult or (1 - 1-dose 75+ series) 2034 Pneumococcal 50+ years Completed 04/10/2022 Insurance MEDICARE PART A ONLY [facility] [employer] Advance Directives For more information, please contact: [phone] * Full Code (Latest Code Status on File) Date Activated Date Inactivated Comments 12/29/2023 4:18 PM 01/01/2024 1:58 PM Care Teams Auto Damage Insurance Appraiser Relationship Specialty Start Date End Date Mckenna Diallo, PAeGriC [address] [place] [address] PCP - General Physician Meat Boner 12/29/23
--- OUTSIDE RECORDS SUMMARY | 2025-01-18 00:13 | XMS_ITS | Referral Summary ---
Author Organization [employer] ([place], [place], [place], [place]) Address [address] [place] [address] Care Team Providers Care Route Delivery Driver Name Role Phone Mckenna Diallo PA-C Primary Care Provider [phone] Allergies No known active allergies Medications empagliflozin [...] the past 12 months, has t he [employer], gas, oil, or water [employer] threatened to shut off services in your [...] Do you speak a language other than [place] at ho [place]? No 12/29/2023 Do you want help with [...] 12/29/2023 5:36 PM EDT Plan of Treatment Not on file Insurance MEDICARE PART A ONLY [facility] [place] [facility] Advance Directives For more information, please contact: [phone] * Full Code (Latest Code Status on File) Date Activated Date Inactivated Comments 12/29/2023 4:18 PM 01/01/2024 1:58 PM Care Teams Route Delivery Driver Relationship Specialty Start Date End Date Mckenna Diallo, VIJIC [address] [place] [address] PCP - General Physician Machine Adjuster 12/29/23
[2025-01-18 00:21] LABS: Lipase 38 U/L (23-300)
[2025-01-18 00:22] LABS: Anion Gap 13.9 mEq/L (5-15); Blood Urea Nitrogen 16 mg/dl (9-20); Carbon Dioxide 24 mmol/L (22.0-30.0); Chloride 93 mmol/L (98-107); Creatinine Clearance Estimated 76 mL/min (50-200); Creatinine,Serum 0.80 mg/dl (0.66-1.25); Estimated Glomerular Filt Rate 97 ml/min (>60); GFR (African American) 117 ML/MIN (>60); Sodium 128 mmol/L (136-145)
[2025-01-18 00:23] LABS: Alanine Aminotransferase 55 U/L (12-78); Albumin Level 3.1 g/dl (3.5-5.0); Albumin/Globulin Ratio 0.8 (1.1-1.8); Alkaline Phosphatase 1092 U/L (38-126); Aspartate Amino Transferase 82 U/L (17-59); Bilirubin,Total 5.5 mg/dl (0.2-1.3); Calcium 9.3 mg/dl (8.4-10.2); Globulin 3.8 g/dL (1.3-3.2); Glucose 141 mg/dl (74-100); Total Protein,Serum 6.9 g/dl (6.3-8.2)
[2025-01-18 00:24] LABS: Potassium 2.9 mmoL/L (3.5-5.1)
[2025-01-18 00:31] LABS: Occult Blood,Stool Negative (Negative)
[2025-01-18] MEDS: SODIUM CHLORIDE 0.9% 10ML SYR (RAD ONLY) 10 ML IV (00:45)
[2025-01-18] MEDS: IOPAMIDOL-370 (76%);100ML BOTTLE 125 ML IV (00:45)
[2025-01-18] MEDS: POTASSIUM CHLORIDE 20MEQ TAB 40 MEQ PO (00:56)
[2025-01-18] MEDS: PIPERACILLIN/TAZO 4.5 GM in 0.9 % SODIUM CHLORIDE 100 ML IV (00:56)
[2025-01-18] MEDS: LACTATED RINGERS 999 ML IV (00:57)
[2025-01-18] MEDS: VANCOMYCIN/WATER FOR INJ (PEG) 1.75 GM/350 ML PIGGYBACK IV (01:41)
[2025-01-18 03:22] LABS: Coronavirus 19, PCR Not Detected (NotDetected); Influenza A, PCR Not Detected (NotDetected); Influenza B, PCR Not Detected (NotDetected)
--- NOTE | 2025-01-18 03:22 | PC.NURSE ---
Report given to NICKY Stratton
[2025-01-18 04:04] LABS: Reflex Lactic Add Lactic Reflex
[2025-01-18 12:53] LABS: Acinetobacter calcoaceticus-ba Not Detected; Bacteroides fragilis Not Detected; CTX-M Not Detected; Candida auris Not Detected; Candida glabrata Not Detected; Enterobacterales Detected; Enterococcus faecalis Not Detected; Enterococcus faecium Not Detected; IMP Not Detected; KPC Not Detected; Klebsiella aerogenes Not Detected; Klebsiella pneumoniae grp Detected; NDM Not Detected; OXA-48-like Not Detected; Proteus spp. Not Detected; Salmonella spp. Not Detected; Serratia marcescens Not Detected; Staphylococcus epidermidis Not Detected; Staphylococcus lugdunensis Not Detected; Staphylococcus spp. Not Detected; Stenotrophomonas maltophilia Not Detected; Streptococcus agalactiae(GrpB) Not Detected; Streptococcus pyogenes Group A Not Detected; Streptococcus spp. Not Detected; VIM Not Detected; mcr-1 Not Detected
--- NOTE | 2025-01-18 13:17 | PC.NURSE ---
blood culture results faxed to [facility] at [phone].
[2025-01-19 08:17] LABS: Prealbumin 9 mg/dL (10-36)
--- NOTE | 2025-01-19 09:32 | PC.NURSE ---
pts prelim culture results faxed to Danielle at [facility] to [phone]
== END 2025-01-18 04:01 | disposition short-term general hospital (02) ==
PROVIDERS: Emergency Provider Emergency Medicine; PCP Family Medicine
DX: A41.89 Other specified sepsis (principal); R65.20 Severe sepsis without septic shock; E87.6 Hypokalemia; R74.01 Elevation of levels of liver transaminase levels; R00.0 Tachycardia, unspecified; R19.7 Diarrhea, unspecified; C25.9 Malignant neoplasm of pancreas, unspecified; F17.210 Nicotine dependence, cigarettes, uncomplicated
CPT/HCPCS: 70470; 72125; 72128; 72131; 74177; 80053; 82272; 83605; 83690; 84134; 85025; 87040; 87077; 87154; 87186; 87636; 96361; 96365; 96366; 96367; 99291; G0328; J2543; J3375; J7120; Q9967